=== PATIENT | female | born 1930 | race Caucasian/White ===

== ENCOUNTER 2017-02-20 19:32 | Inpatient (IN) | payer MEDICARE, OTHER ==
[2017-02-20] MEDS ORDERED: Sodium Chloride 0.9% 1,000 ML IV STA (20:19)
[2017-02-20 20:44] LABS: BASO % 0.2 % (0.0-2.0); EOS # 0.1 K/uL (0.0-0.7); EOS % 0.5 % (0.0-4.0); HEMATOCRIT 36.9 % (34.0-47.0); LYMPH # 0.8 K/uL (1.0-4.3); MEAN CORPUSCULAR HEMOGLOBIN 28.6 pg (27.0-31.0); MEAN CORPUSCULAR HGB CONC 32.5 g/dL (33.0-37.0); MEAN PLATELET VOLUME 7.8 fL (7.2-11.7); MONO # 0.3 K/uL (0.0-0.8); MONO % 2.2 % (0.0-10.0); NRBC % 0.1 % (0.0-2.0); PLATELET COUNT 289 K/uL (130-400); RED CELL DISTRIBUTION WIDTH 16.4 % (11.5-14.5); WHITE BLOOD COUNT 11.5 K/uL (4.8-10.8)
[2017-02-20 20:49] LABS: MEAN CELL VOLUME 88.1 fL (81.0-99.0)
[2017-02-20 20:51] LABS: INR 1.1
[2017-02-20 20:53] LABS: ALKALINE PHOSPHATASE 108 U/L (38-126); ALT/SGPT 38 U/L (9-52); AST/SGOT 36 U/L (14-36); BILIRUBIN,TOTAL 0.6 mg/dL (0.2-1.3); BLOOD UREA NITROGEN 19 mg/dL (7-17); CARBON DIOXIDE 24 mmol/L (22-30); CHLORIDE 106 mmol/L (98-107); GFR AFRICAN-AMERICAN > 60; GLUCOSE,RANDOM 132 mg/dL (65-105); MAGNESIUM 1.5 mg/dL (1.6-2.3); PHOSPHOROUS 2.4 mg/dL (2.5-4.5); POTASSIUM 4.7 mmol/L (3.6-5.2); SODIUM 141 mmol/L (132-148); TOTAL PROTEIN 8.3 g/dL (6.3-8.3)
[2017-02-20 21:00] LABS: VENOUS BLOOD GAS BASE EXCESS -1.4 mmol/L (0.0-2.0); VENOUS BLOOD GAS PCO2 36 mmHg (40-60); VENOUS BLOOD PH 7.41 (7.32-7.43)
[2017-02-20 21:16] LABS: RBC URINE 10 /hpf (0-3); URINE BACTERIA RARE (<OCC); URINE BILIRUBIN NEGATIVE (NEGATIVE); URINE BLOOD 1+ (NEGATIVE); URINE COLOR Yellow (YELLOW); URINE GLUCOSE (UA) NORMAL (Normal); URINE KETONE NEGATIVE (NEGATIVE); URINE LEUKOCYTE ESTERASE NEG Leu/uL (Negative); URINE PROTEIN NEGATIVE (NEGATIVE); URINE UROBILINOGEN NORMAL mg/dL (0.2-1.0); WBC URINE 6 /hpf (0-5)
[2017-02-20] MEDS ORDERED: Piperacill/Tazo 4.5gm in Dex 4.5 GM/100 ML BAG IVPB STA (21:21)
[2017-02-20] MEDS ORDERED: Moxifloxacin IV 400mg/250ml NS 250 ML IVPB STA (21:21)
[2017-02-20 21:24] LABS: EOSINOPHIL 1 % (0-4); NEUTROPHIL 72 % (50-75); TOTAL CELLS COUNTED 100
[2017-02-20 21:25] LABS: LARGE PLATELETS PRESENT
[2017-02-20] MEDS ORDERED: Gentamicin 270 MG in Sodium Chloride 0.9% 100 ML IVPB STA ×2 (21:43→22:17)
[2017-02-20] MEDS ORDERED: Vancomycin 1 GM 1 GM/250 ML BAG IVPB STA (22:15)
[2017-02-20] MEDS ORDERED: Azithromycin 500mg/250ML NS 500 MG/250 ML BAG IVPB STA (22:15)
--- NOTE | 2017-02-20 22:57 | C.PDOC ---
Time Seen by Provider: 02/20/17 19:48 Chief Complaint (Nursing): Fever History Per: Patient, Family (Son) History/Exam Limitations: clinical condition Onset/Duration Of Symptoms: Days (1) Current Symptoms Are (Timing): Still Present Associated Symptoms: Fever, Chills, Sputum Severity: Severe Additional History Per: Prior Records Past Medical History Reviewed: Historical Data, Nursing Documentation, Vital Signs Vital Signs: Last Vital Signs Temp 101.5 F H 02/20/17 21:33 Pulse 92 H 02/20/17 21:33 Resp 27 H 02/20/17 21:33 BP 99/48 L 02/20/17 21:33 Pulse Ox 93 L 02/20/17 22:59 - Medical History PMH: Alzheimer's Disease, Anxiety, Arthritis, Depression, HTN, Hypercholesterolemia, Hypothyroidism (on synthroid) Family History: States: Unknown Family Hx - Social History Hx Tobacco Use: No Hx Alcohol Use: No Hx Substance Use: No - Immunization History Hx Tetanus Toxoid Vaccination: No Hx Influenza Vaccination: No (unknown as per son.) Hx Pneumococcal Vaccination: No Review Of Systems Review Of Systems: ROS cannot be obtained secondary to pt's inabilty to answer questions. Physical Exam - Physical Exam Appears: Chronically Ill, Other (Lethargic) Skin: Normal Color, Warm, Dry Head: Atraumatic, Normacephalic Eye(s): bilateral: PERRL Oral Mucosa: Dry Neck: Normal ROM, Supple Cardiovascular: Rhythm Regular Respiratory: No Accessory Muscle Use, Rhonchi Gastrointestinal/Abdominal: Soft, No Tenderness Extremity: Other (Pressure ulcer on right hip) Neurological/Psych: Inappropriate Response To Command, Other (Moving all extremities) Gait: Unable To Assess ED Course And Treatment - Laboratory Results Result Diagrams: 02/20/17 20:38 02/20/17 20:38 Lab Interpretation: Abnormal Interpretation Of Abnormal: Bandemia ECG: Interpreted By Me, Viewed By Me ECG Rhythm: Sinus Tachycardia, Nonspecific Changes Rate From EC O2 Sat by Pulse Oximetry: 93 Pulse Ox Interpretation: Abnormal Interpretation Of Abnormal: Hypoxia on RA - Radiology CXR: Interpreted by Me, Viewed By Me CXR Interpretation: Yes: Infiltrates (right) - Physician Consult Information Physician Contacted: Ruben Howe Outcome Of Conversation: He evaluated pt in the ED and states pt can safely be admitted to Tele floor. Progress - Interventions Interventions:: Observation, Intravenous fluid - Medications Administered Intravenous: Other (Abx) - Data Reviewed Data Reviewed: Lab, Diagnostic imaging, EKG, Old records - Patient Status Patient status: Partially improved - Critical Care Citical Care: Excluding Proc Time Critical Care Time: 60 minutes - Continuity of Care Discussed patient case with:: Patient, Family-HIPPA compliant, ED Nurse, Covering for PMD Discussed pt. case with corporate health consultant/specialty: Pulmonary/Crit. Care - Patient Plan Patient Plan: Admission, Telemetry Disposition Discussed With : Freddie Aaron Comment: He accepted pt on hospitalist service. Doctor Will See Patient In The: Hospital Counseled Patient/Family Regarding: Studies Performed, Diagnosis - Disposition Disposition: HOSPITALIZED Disposition Time: 00:48 Condition: GUARDED - Clinical Impression Clinical Impression: Pneumonia, Sepsis
[2017-02-20] MEDS ORDERED: Sodium Chloride 0.9% 1,000 ML IV ONE (23:23)
[2017-02-21 00:19] LABS: VENOUS BLOOD GAS BASE EXCESS -6.1 mmol/L (0.0-2.0); VENOUS BLOOD GAS PCO2 47 mmHg (40-60); VENOUS BLOOD PH 7.26 (7.32-7.43)
[2017-02-21] MEDS ORDERED: Piperacill/Tazo 3.375gm in Dex 3.375 GM/50 ML BAG IVPB SCH ×2 (02:15→06:00)
--- NOTE | 2017-02-21 02:24 | CP.PCM.CON ---
History of Present Illness - History of Present Illness History of Present Illness: 86 F with h/o severe dementia, h/o anxiety, agitation was found to be shivering and febrile at home. In ER temp 103, patient initially lethargic was hydrated and started abx. Patient's mental status improved and gradually came to baseline as per the son a the bedside. As per the son pt is very forgetful may remember names 20% of the time, has been fall risk and has to be medicated with ativan and seroquel 3 time/day. Patient only speak Vincentian and son also has hard time communicating with her. Son also mentions he was also sick with cold symptoms and got better 2 days ago. CXR right upper lobe patchy infiltrate PMH/ PSH right knee surg, htn, anxiety, dementia with behaviour symptoms Allergies NKDA Social history lives with family, not h/o smoking/alcohol Family history not contributory Meds seroquel, clonazepam, zolpidem in the night, tylenol prn, lisinopril, some time prn oxycodone Review of Systems - Review of Systems All systems: reviewed and no additional remarkable complaints except (HPI) Past Patient History - Infectious Disease Hx of Infectious Diseases: None - Past Social History Smoking Status: Never Smoked Alcohol: None Home Situation {Lives}: With Family Domestic Violence: Negative - CARDIAC Hx Hypercholesterolemia: Yes Hx Hypertension: Yes - PULMONARY Other/Comment: Hx of upper respiratory infection. - NEUROLOGICAL Hx Alzheimer's Disease: Yes - RENAL Hx Chronic Kidney Disease: No - ENDOCRINE/METABOLIC Hx Hypothyroidism: Yes (on synthroid) - MUSCULOSKELETAL/RHEUMATOLOGICAL Hx Arthritis: Yes - PSYCHIATRIC Hx Anxiety: Yes Hx Depression: Yes Hx Substance Use: No - SURGICAL HISTORY Hx Surgeries: Yes Other/Comment: "knee surgery" to unknown side as per son. 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 Results - Vital Signs Recent Vital Signs: Last Vital Signs Temp 99.9 F H 02/21/17 01:53 Pulse 74 02/21/17 01:50 Resp 22 02/21/17 01:50 BP 95/41 L 02/21/17 01:50 Pulse Ox 98 02/21/17 01:50 - Labs Result Diagrams: 02/20/17 20:38 02/20/17 20:38 Labs: Laboratory Results - last 24 hr 02/20/17 02/20/17 02/20/17 00:15 20:30 20:38 WBC 11.5 H D RBC 4.19 Hgb 12.0 Hct 36.9 MCV 88.1 D MCH 28.6 MCHC 32.5 L RDW 16.4 H Plt Count 289 MPV 7.8 Neut % (Auto) 90.1 H Lymph % (Auto) 7.0 L Mcdowell % (Auto) 2.2 Eos % (Auto) 0.5 Baso % (Auto) 0.2 Neut # 10.3 H Lymph # 0.8 L Mcdowell # 0.3 Eos # 0.1 Baso # 0.0 Neutrophils % (Manual) 72 Band Neutrophils % 14 H* Lymphocytes % (Manual) 7 L Monocytes % (Manual) 6 Eosinophils % (Manual) 1 Platelet Estimate Normal Large Platelets Present Hypochromasia (manual) Slight Microcytosis (manual) Slight Ovalocytes Slight PT INR APTT pO2 26 L 39 VBG pH 7.26 L 7.41 VBG pCO2 47 36 L VBG HCO3 18.5 23.2 VBG Total CO2 22.5 23.9 VBG O2 Sat (Calc) 51.6 79.9 H VBG Base Excess -6.1 L -1.4 L VBG Potassium 4.9 5.0 Sodium 143.0 141.0 Chloride 115.0 H 104.0 Glucose 122 H 128 H Lactate 2.4 H 3.1 H Potassium Carbon Dioxide Anion Gap BUN Creatinine Est GFR ( Amer) Est GFR (Non-Af Amer) Random Glucose Calcium Phosphorus Magnesium Total Bilirubin AST ALT Alkaline Phosphatase Total Protein Albumin Globulin Albumin/Globulin Ratio Procalcitonin Venous Blood Potassium 4.9 5.0 Urine Color Urine Clarity Urine pH Ur Specific [place] Urine Protein Urine Glucose (UA) Urine Ketones Urine Blood Urine Nitrate Urine Bilirubin Urine Urobilinogen Ur Leukocyte Esterase Urine WBC (Auto) Urine RBC (Auto) Ur Squamous Epith Cells Urine Bacteria 02/20/17 02/20/17 02/20/17 20:38 20:38 20:46 WBC RBC Hgb Hct MCV MCH MCHC RDW Plt Count MPV Neut % (Auto) Lymph % (Auto) Mcdowell % (Auto) Eos % (Auto) Baso % (Auto) Neut # Lymph # Mcdowell # Eos # Baso # Neutrophils % (Manual) Band Neutrophils % Lymphocytes % (Manual) Monocytes % (Manual) Eosinophils % (Manual) Platelet Estimate Large Platelets Hypochromasia (manual) Microcytosis (manual) Ovalocytes PT 12.7 H INR 1.1 APTT 32 pO2 VBG pH VBG pCO2 VBG HCO3 VBG Total CO2 VBG O2 Sat (Calc) VBG Base Excess VBG Potassium Sodium 141 Chloride 106 Glucose Lactate Potassium 4.7 Carbon Dioxide 24 Anion Gap 15 BUN 19 H Creatinine 1.0 Est GFR ( Amer) > 60 Est GFR (Non-Af Amer) 52 Random Glucose 132 H Calcium 9.0 Phosphorus 2.4 L Magnesium 1.5 L Total Bilirubin 0.6 AST 36 ALT 38 Alkaline Phosphatase 108 Total Protein 8.3 Albumin 4.1 Globulin 4.2 H Albumin/Globulin Ratio 1.0 Procalcitonin 3.19 H Venous Blood Potassium Urine Color Urine Clarity Urine pH Ur Specific [place] Urine Protein Urine Glucose (UA) Urine Ketones Urine Blood Urine Nitrate Urine Bilirubin Urine Urobilinogen Ur Leukocyte Esterase Urine WBC (Auto) Urine RBC (Auto) Ur Squamous Epith Cells Urine Bacteria 02/20/17 21:03 WBC RBC Hgb Hct MCV MCH MCHC RDW Plt Count MPV Neut % (Auto) Lymph % (Auto) Mcdowell % (Auto) Eos % (Auto) Baso % (Auto) Neut # Lymph # Mcdowell # Eos # Baso # Neutrophils % (Manual) Band Neutrophils % Lymphocytes % (Manual) Monocytes % (Manual) Eosinophils % (Manual) Platelet Estimate Large Platelets Hypochromasia (manual) Microcytosis (manual) Ovalocytes PT INR APTT pO2 VBG pH VBG pCO2 VBG HCO3 VBG Total CO2 VBG O2 Sat (Calc) VBG Base Excess VBG Potassium Sodium Chloride Glucose Lactate Potassium Carbon Dioxide Anion Gap BUN Creatinine Est GFR ( Amer) Est GFR (Non-Af Amer) Random Glucose Calcium Phosphorus Magnesium Total Bilirubin AST ALT Alkaline Phosphatase Total Protein Albumin Globulin Albumin/Globulin Ratio Procalcitonin Venous Blood Potassium Urine Color Yellow Urine Clarity Clear Urine pH 6.0 Ur Specific [place] 1.012 Urine Protein Negative Urine Glucose (UA) Normal Urine Ketones Negative Urine Blood 1+ H Urine Nitrate Negative Urine Bilirubin Negative Urine Urobilinogen Normal Ur Leukocyte Esterase Neg Urine WBC (Auto) 6 H Urine RBC (Auto) 10 H Ur Squamous Epith Cells 1 Urine Bacteria Rare Assessment & Plan - Assessment and Plan (Free Text) Assessment: * Sepsis likely source is RUL pna, pt's spo2 is 100% on 2lit nc * Lower side bp but patient is back to base line, trying to climb out of bed * Severe dementia with behaviour symptoms on seroquel, clonazepam. Plan: * Broad spectrum abx Vanco, Rocephin, doxy/zithromax * Since patient has improved in MS continue to monitor in tele * Will need 1:1 * GI/DVT prophylaxis * D/w ER physician.
--- NOTE | 2017-02-21 02:37 | CP.PCM.HP ---
<MarinCorrie - Last Filed: 02/21/17 02:44> History of Present Illness - History of Present Illness History of Present Illness: CC: fever, chills, unresponsive per son HPI: 86F with PMH of dementia, anxiety, HLD and HTN who presented to the ED via EMS for fever, chills, and unresponsiveness. Patient lives with her son who says around 2:00 pm the patient was found to be shaking and feeling "unwell". He says later in the afternoon when he came home she was obtunded, tachypnic, and had saliva coming out of her mouth. He says when he touched her she felt hot to the touch and she was not opening her eyes. During exam the patient is more awake now than what he describes her as earlier, but still somewhat confused. She keeps asking to go to the bathroom even after repeatedly being told she has a Yanez in place. Patient's son says she is usually confused at baseline and over the past year has been having a more difficult time finding their bathroom at home. He notes that he was recently ill with a URI that he was given antibiotics for and is concerned he may have passed this to her since she has now had a cough productive of yellow phlegm for 2 days. He called the patient's PCP who prescribed her levoquin, however by the time he picked it up from the pharmacy he had to call the ambulance. Patient is complaining of right thumb pain but otherwise denies headache, sore throat, dizziness, chest pain abdominal pain, nausea, and vomiting. A full ROS was difficult to obtain 2/2 patient confusion. 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 - NEUROLOGICAL Hx Alzheimer's Disease: Yes - RENAL Hx Chronic Kidney Disease: No - ENDOCRINE/METABOLIC Hx Hypothyroidism: Yes (on synthroid) - MUSCULOSKELETAL/RHEUMATOLOGICAL Hx Arthritis: Yes - PSYCHIATRIC Hx Anxiety: Yes Hx Depression: Yes Hx Substance Use: No - SURGICAL HISTORY Hx Surgeries: Yes Other/Comment: "knee surgery" to unknown side as per son. - ANESTHESIA Hx Anesthesia: Yes Hx Anesthesia Reactions: No Hx Malignant Hyperthermia: No Meds Allergies/Adverse Reactions: Allergies Allergy/AdvReac Type Severity Reaction Status Date / Time No Known Allergies Allergy Verified 02/20/17 19:47 Physical Exam - Constitutional Appears: Agitated, Confused - Head Exam Head Exam: ATRAUMATIC, NORMAL INSPECTION, NORMOCEPHALIC - Eye Exam Eye Exam: EOMI, PERRL - ENT Exam ENT Exam: Mucous Membranes Dry - Neck Exam Neck exam: Positive for: Normal Inspection - Respiratory Exam Respiratory Exam: Rales (b/l), Respiratory Distress. absent: Accessory Muscle Use, Rhonchi, Wheezes, Stridor - Cardiovascular Exam Cardiovascular Exam: RRR, +S1, +S2 - GI/Abdominal Exam GI & Abdominal Exam: Normal Bowel Sounds, Soft. absent: Tenderness - Extremities Exam Extremities exam: Positive for: normal capillary refill, pedal edema (nonpitting ), pedal pulses present. Negative for: calf tenderness - Neurological Exam Neurological exam: Alert Additional comments: oriented to person and place but not oriented to time - Psychiatric Exam Psychiatric exam: Agitated, Normal Affect - Skin Skin Exam: Dry, Normal Color, Warm Additional comments: 3cm x 3cm abrasion on right hip (patients son says it is from scooting down the stairs at home) Results - Vital Signs Recent Vital Signs: Last Vital Signs Temp 99.9 F H 02/21/17 01:53 Pulse 74 02/21/17 01:50 Resp 22 02/21/17 01:50 BP 95/41 L 02/21/17 01:50 Pulse Ox 98 02/21/17 01:50 - Labs Result Diagrams: 02/20/17 20:38 02/20/17 20:38 Labs: Laboratory Results - last 24 hr 02/20/17 02/20/17 02/20/17 00:15 20:30 20:38 WBC 11.5 H D RBC 4.19 Hgb 12.0 Hct 36.9 MCV 88.1 D MCH 28.6 MCHC 32.5 L RDW 16.4 H Plt Count 289 MPV 7.8 Neut % (Auto) 90.1 H Lymph % (Auto) 7.0 L Early % (Auto) 2.2 Eos % (Auto) 0.5 Baso % (Auto) 0.2 Neut # 10.3 H Lymph # 0.8 L Early # 0.3 Eos # 0.1 Baso # 0.0 Neutrophils % (Manual) 72 Band Neutrophils % 14 H* Lymphocytes % (Manual) 7 L Monocytes % (Manual) 6 Eosinophils % (Manual) 1 Platelet Estimate Normal Large Platelets Present Hypochromasia (manual) Slight Microcytosis (manual) Slight Ovalocytes Slight PT INR APTT pO2 26 L 39 VBG pH 7.26 L 7.41 VBG pCO2 47 36 L VBG HCO3 18.5 23.2 VBG Total CO2 22.5 23.9 VBG O2 Sat (Calc) 51.6 79.9 H VBG Base Excess -6.1 L -1.4 L VBG Potassium 4.9 5.0 Sodium 143.0 141.0 Chloride 115.0 H 104.0 Glucose 122 H 128 H Lactate 2.4 H 3.1 H Potassium Carbon Dioxide Anion Gap BUN Creatinine Est GFR ( Amer) Est GFR (Non-Af Amer) Random Glucose Calcium Phosphorus Magnesium Total Bilirubin AST ALT Alkaline Phosphatase Total Protein Albumin Globulin Albumin/Globulin Ratio Procalcitonin Venous Blood Potassium 4.9 5.0 Urine Color Urine Clarity Urine pH Ur Specific [place] Urine Protein Urine Glucose (UA) Urine Ketones Urine Blood Urine Nitrate Urine Bilirubin Urine Urobilinogen Ur Leukocyte Esterase Urine WBC (Auto) Urine RBC (Auto) Ur Squamous Epith Cells Urine Bacteria 02/20/17 02/20/17 02/20/17 20:38 20:38 20:46 WBC RBC Hgb Hct MCV MCH MCHC RDW Plt Count MPV Neut % (Auto) Lymph % (Auto) Early % (Auto) Eos % (Auto) Baso % (Auto) Neut # Lymph # Early # Eos # Baso # Neutrophils % (Manual) Band Neutrophils % Lymphocytes % (Manual) Monocytes % (Manual) Eosinophils % (Manual) Platelet Estimate Large Platelets Hypochromasia (manual) Microcytosis (manual) Ovalocytes PT 12.7 H INR 1.1 APTT 32 pO2 VBG pH VBG pCO2 VBG HCO3 VBG Total CO2 VBG O2 Sat (Calc) VBG Base Excess VBG Potassium Sodium 141 Chloride 106 Glucose Lactate Potassium 4.7 Carbon Dioxide 24 Anion Gap 15 BUN 19 H Creatinine 1.0 Est GFR ( Amer) > 60 Est GFR (Non-Af Amer) 52 Random Glucose 132 H Calcium 9.0 Phosphorus 2.4 L Magnesium 1.5 L Total Bilirubin 0.6 AST 36 ALT 38 Alkaline Phosphatase 108 Total Protein 8.3 Albumin 4.1 Globulin 4.2 H Albumin/Globulin Ratio 1.0 Procalcitonin 3.19 H Venous Blood Potassium Urine Color Urine Clarity Urine pH Ur Specific [place] Urine Protein Urine Glucose (UA) Urine Ketones Urine Blood Urine Nitrate Urine Bilirubin Urine Urobilinogen Ur Leukocyte Esterase Urine WBC (Auto) Urine RBC (Auto) Ur Squamous Epith Cells Urine Bacteria 02/20/17 21:03 WBC RBC Hgb Hct MCV MCH MCHC RDW Plt Count MPV Neut % (Auto) Lymph % (Auto) Early % (Auto) Eos % (Auto) Baso % (Auto) Neut # Lymph # Early # Eos # Baso # Neutrophils % (Manual) Band Neutrophils % Lymphocytes % (Manual) Monocytes % (Manual) Eosinophils % (Manual) Platelet Estimate Large Platelets Hypochromasia (manual) Microcytosis (manual) Ovalocytes PT INR APTT pO2 VBG pH VBG pCO2 VBG HCO3 VBG Total CO2 VBG O2 Sat (Calc) VBG Base Excess VBG Potassium Sodium Chloride Glucose Lactate Potassium Carbon Dioxide Anion Gap BUN Creatinine Est GFR ( Amer) Est GFR (Non-Af Amer) Random Glucose Calcium Phosphorus Magnesium Total Bilirubin AST ALT Alkaline Phosphatase Total Protein Albumin Globulin Albumin/Globulin Ratio Procalcitonin Venous Blood Potassium Urine Color Yellow Urine Clarity Clear Urine pH 6.0 Ur Specific [place] 1.012 Urine Protein Negative Urine Glucose (UA) Normal Urine Ketones Negative Urine Blood 1+ H Urine Nitrate Negative Urine Bilirubin Negative Urine Urobilinogen Normal Ur Leukocyte Esterase Neg Urine WBC (Auto) 6 H Urine RBC (Auto) 10 H Ur Squamous Epith Cells 1 Urine Bacteria Rare Assessment & Plan (1) Sepsis Assessment and Plan: * Likely secondary to pneumonia * Lactate: 2.4, 3.1 * procal: 3.19 * UA: 1+ blood, * Vanc QD and Zosyn Q8 * NS @100/h * monitor vitals * f/u CXR * f/u sputum culture * f/u urine culture * f/u blood culture * f/u Flu A/B Status: Acute (2) Dementia Assessment and Plan: * Confirm home meds with [facility] * Fall risk protocol * high elopement risk * swallow eval * consider 1-to-1 Status: Chronic (3) HLD (hyperlipidemia) Assessment and Plan: * Crestor 2.5mg HS * f/u lipid panel Status: Chronic (4) HTN (hypertension) Assessment and Plan: * hold Losartan 50 mg QD (home med) due to low BP on admission * Monitor Status: Chronic (5) Prophylactic measure Assessment and Plan: * Heparin * Protonix * SCDs Status: Acute <Freddie Aaron - Last Filed: 02/21/17 06:36> Results - Vital Signs Recent Vital Signs: Last Vital Signs Temp 99 F 02/21/17 03:45 Pulse 90 02/21/17 03:45 Resp 22 02/21/17 03:45 BP 126/63 02/21/17 03:45 Pulse Ox 98 02/21/17 03:45 - Labs Result Diagrams: 02/20/17 20:38 02/20/17 20:38 Labs: Laboratory Results - last 24 hr 02/20/17 02/20/17 02/20/17 00:15 20:30 20:38 WBC 11.5 H D RBC 4.19 Hgb 12.0 Hct 36.9 MCV 88.1 D MCH 28.6 MCHC 32.5 L RDW 16.4 H Plt Count 289 MPV 7.8 Neut % (Auto) 90.1 H Lymph % (Auto) 7.0 L Early % (Auto) 2.2 Eos % (Auto) 0.5 Baso % (Auto) 0.2 Neut # 10.3 H Lymph # 0.8 L Early # 0.3 Eos # 0.1 Baso # 0.0 Neutrophils % (Manual) 72 Band Neutrophils % 14 H* Lymphocytes % (Manual) 7 L Monocytes % (Manual) 6 Eosinophils % (Manual) 1 Platelet Estimate Normal Large Platelets Present Hypochromasia (manual) Slight Microcytosis (manual) Slight Ovalocytes Slight PT INR APTT pO2 26 L 39 VBG pH 7.26 L 7.41 VBG pCO2 47 36 L VBG HCO3 18.5 23.2 VBG Total CO2 22.5 23.9 VBG O2 Sat (Calc) 51.6 79.9 H VBG Base Excess -6.1 L -1.4 L VBG Potassium 4.9 5.0 Sodium 143.0 141.0 Chloride 115.0 H 104.0 Glucose 122 H 128 H Lactate 2.4 H 3.1 H Potassium Carbon Dioxide Anion Gap BUN Creatinine Est GFR ( Amer) Est GFR (Non-Af Amer) Random Glucose Calcium Phosphorus Magnesium Total Bilirubin AST ALT Alkaline Phosphatase Total Protein Albumin Globulin Albumin/Globulin Ratio Procalcitonin Venous Blood Potassium 4.9 5.0 Urine Color Urine Clarity Urine pH Ur Specific [place] Urine Protein Urine Glucose (UA) Urine Ketones Urine Blood Urine Nitrate Urine Bilirubin Urine Urobilinogen Ur Leukocyte Esterase Urine WBC (Auto) Urine RBC (Auto) Ur Squamous Epith Cells Urine Bacteria Influenza Typ A,B (EIA) 02/20/17 02/20/17 02/20/17 20:38 20:38 20:46 WBC RBC Hgb Hct MCV MCH MCHC RDW Plt Count MPV Neut % (Auto) Lymph % (Auto) Early % (Auto) Eos % (Auto) Baso % (Auto) Neut # Lymph # Early # Eos # Baso # Neutrophils % (Manual) Band Neutrophils % Lymphocytes % (Manual) Monocytes % (Manual) Eosinophils % (Manual) Platelet Estimate Large Platelets Hypochromasia (manual) Microcytosis (manual) Ovalocytes PT 12.7 H INR 1.1 APTT 32 pO2 VBG pH VBG pCO2 VBG HCO3 VBG Total CO2 VBG O2 Sat (Calc) VBG Base Excess VBG Potassium Sodium 141 Chloride 106 Glucose Lactate Potassium 4.7 Carbon Dioxide 24 Anion Gap 15 BUN 19 H Creatinine 1.0 Est GFR ( Amer) > 60 Est GFR (Non-Af Amer) 52 Random Glucose 132 H Calcium 9.0 Phosphorus 2.4 L Magnesium 1.5 L Total Bilirubin 0.6 AST 36 ALT 38 Alkaline Phosphatase 108 Total Protein 8.3 Albumin 4.1 Globulin 4.2 H Albumin/Globulin Ratio 1.0 Procalcitonin 3.19 H Venous Blood Potassium Urine Color Urine Clarity Urine pH Ur Specific [place] Urine Protein Urine Glucose (UA) Urine Ketones Urine Blood Urine Nitrate Urine Bilirubin Urine Urobilinogen Ur Leukocyte Esterase Urine WBC (Auto) Urine RBC (Auto) Ur Squamous Epith Cells Urine Bacteria Influenza Typ A,B (EIA) 02/20/17 02/21/17 21:03 05:41 WBC RBC Hgb Hct MCV MCH MCHC RDW Plt Count MPV Neut % (Auto) Lymph % (Auto) Early % (Auto) Eos % (Auto) Baso % (Auto) Neut # Lymph # Early # Eos # Baso # Neutrophils % (Manual) Band Neutrophils % Lymphocytes % (Manual) Monocytes % (Manual) Eosinophils % (Manual) Platelet Estimate Large Platelets Hypochromasia (manual) Microcytosis (manual) Ovalocytes PT INR APTT pO2 VBG pH VBG pCO2 VBG HCO3 VBG Total CO2 VBG O2 Sat (Calc) VBG Base Excess VBG Potassium Sodium Chloride Glucose Lactate Potassium Carbon Dioxide Anion Gap BUN Creatinine Est GFR ( Amer) Est GFR (Non-Af Amer) Random Glucose Calcium Phosphorus Magnesium Total Bilirubin AST ALT Alkaline Phosphatase Total Protein Albumin Globulin Albumin/Globulin Ratio Procalcitonin Venous Blood Potassium Urine Color Yellow Urine Clarity Clear Urine pH 6.0 Ur Specific [place] 1.012 Urine Protein Negative Urine Glucose (UA) Normal Urine Ketones Negative Urine Blood 1+ H Urine Nitrate Negative Urine Bilirubin Negative Urine Urobilinogen Normal Ur Leukocyte Esterase Neg Urine WBC (Auto) 6 H Urine RBC (Auto) 10 H Ur Squamous Epith Cells 1 Urine Bacteria Rare Influenza Typ A,B (EIA) Negative for flu a/b Assessment & Plan - Date & Time Date: 02/21/17 (I have seen and examined the patient. I agree with the findings and plan of care as documented by Dr. Funes. Patient with pneumonia and positive for SIRS criteria. Code sepsis called in ED. ICU consult ordered by ED. Vanco, Zosyn, and Gentamicin given in ED. Continue Vanco and Zosyn for now. Check sputum and blood cultures. Monitor vitals closely. Continue IVF. BP improved. Continue home meds for history of dementia. Fall precautions. Monitor for acute changes. ) Time: 06:33 Attending/Attestation - Attestation I have personally seen and examined this patient.: Yes I have fully participated in the care of the patient.: Yes I have reviewed all pertinent clinical information: Yes
[2017-02-21] MEDS: Sodium Chloride 0.9% 1,000 ML IV SCH ×3 (03:25→18:52)
[2017-02-21] MEDS ORDERED: Albuterol-Ipratrop 3 mg / 0.5 (3 ml) UD INH PRN ×2 (03:45→22:45)
--- NOTE | 2017-02-21 04:35 | PCM.SEPTIC ---
Sepsis Progress Note - Reassessment Type Date of Evaluation: 02/21/17 Time of Evaluation: 04:33 Reassessment Type: Non-invasive reassessment - Non Invasive Reassessment Were the most recent vital sign reviewed: Yes Vital Sign (Latest): Temp Pulse Resp BP Pulse Ox 98.5 F 67 20 112/65 97 02/21/17 02:15 02/21/17 02:15 02/21/17 02:15 02/21/17 02:15 02/21/17 02:15 Cardiovascular: Yes: Regular Rate, Rhythm, Chest Non Tender. No: Murmur, Bradycardia, Tachycardia Respiratory: Yes: Normal Breath Sounds. No: Accessory Muscle Use, Crackles, Rales, Rhonchi, Stridor, Wheezing Capillary Refill: Normal (Less than 2 sec) Pulses: Normal Radial Skin: Normal Color, Warm, Dry
[2017-02-21 07:16] LABS: BASO # 0.1 K/uL (0.0-0.2); BASO % 0.3 % (0.0-2.0); HEMATOCRIT 31.2 % (34.0-47.0); LYMPH # 1.1 K/uL (1.0-4.3); LYMPH % 6.9 % (20.0-40.0); MEAN CELL VOLUME 90.4 fL (81.0-99.0); MEAN CORPUSCULAR HEMOGLOBIN 28.9 pg (27.0-31.0); MEAN PLATELET VOLUME 7.8 fL (7.2-11.7); MONO # 0.6 K/uL (0.0-0.8); MONO % 3.5 % (0.0-10.0); NRBC % 0.1 % (0.0-2.0); PLATELET COUNT 248 K/uL (130-400); RED CELL DISTRIBUTION WIDTH 16.7 % (11.5-14.5); WHITE BLOOD COUNT 16.6 K/uL (4.8-10.8)
[2017-02-21 07:55] LABS: VENOUS BLOOD GAS BASE EXCESS -4.3 mmol/L (0.0-2.0); VENOUS BLOOD GAS PCO2 42 mmHg (40-60); VENOUS BLOOD PH 7.32 (7.32-7.43)
[2017-02-21 07:57] LABS: ALB/GLOB RATIO 1.4 (1.0-2.1); ALKALINE PHOSPHATASE 89 U/L (38-126); ALT/SGPT 40 U/L (9-52); AST/SGOT 64 U/L (14-36); BILIRUBIN,TOTAL 0.5 mg/dL (0.2-1.3); BLOOD UREA NITROGEN 17 mg/dL (7-17); CALCIUM 7.6 mg/dl (8.6-10.4); CARBON DIOXIDE 18 mmol/L (22-30); CHLORIDE 112 mmol/L (98-107); CHOLESTEROL 129 mg/dL (0-199); GFR AFRICAN-AMERICAN > 60; GLUCOSE,RANDOM 142 mg/dL (65-105); POTASSIUM 4.2 mmol/L (3.6-5.2); SODIUM 144 mmol/L (132-148); TOTAL PROTEIN 5.7 g/dL (6.3-8.3)
--- NOTE | 2017-02-21 08:55 | RAD ---
HISTORY: Sepsis Patient COMPARISON: 11/14/2015 FINDINGS: LUNGS: There are persistent low lung volumes. There is multifocal scarring in the right upper lobe. There is also mild pulmonary venous congestion. No focal consolidation PLEURA: No significant pleural effusion identified, no pneumothorax apparent. CARDIOVASCULAR: Normal. OSSEOUS STRUCTURES: No significant abnormalities. VISUALIZED UPPER ABDOMEN: Normal. OTHER FINDINGS: None. IMPRESSION: No acute findings.
[2017-02-21 09:01] LABS: BASOPHIL 1 % (0-2); NEUTROPHIL 71 % (50-75); TOTAL CELLS COUNTED 100
--- NOTE | 2017-02-21 09:14 | CP.PCM.PCO ---
Physician Communication Note - Physician Communication Note Physician Communication Note: Held influenza vaccine since patient is septic. Recommend post-hosp.
[2017-02-21 09:57] LABS: MAGNESIUM 1.5 mg/dL (1.6-2.3); PHOSPHOROUS 3.1 mg/dL (2.5-4.5)
[2017-02-21] MEDS ORDERED: Azithromycin 500 MG in Sodium Chloride 0.9% 250 ML IVPB SCH (10:00)
[2017-02-21 10:29] LABS: TROPONIN I 0.015 ng/mL (0.00-0.120)
[2017-02-21] MEDS: Pantoprazole 40 mg EC Tab PO SCH (10:55)
--- NOTE | 2017-02-21 11:08 | CP.PCM.PN ---
<Theodora Dillard - Last Filed: 02/21/17 19:16> Subjective - Date & Time of Evaluation Date of Evaluation: 02/21/17 Time of Evaluation: 11:08 - Subjective Subjective: Medicine Progress Note for Dr. Núñez Patient was seen and examined at bedside in no acute distress. Patient's granddaughter was a bedside and translated. Patient reports having constipation and abdominal discomfort. Patient denies remaining review of systems. Objective - Vital Signs/Intake and Output Vital Signs (last 24 hours): Temp Pulse Resp BP Pulse Ox 98.2 F 77 18 98/60 L 96 02/21/17 08:41 02/21/17 08:41 02/21/17 08:41 02/21/17 08:41 02/21/17 08:41 - Medications Medications: Current Medications Acetaminophen (Tylenol 325mg Tab) 650 mg PO Q6 PRN PRN Reason: Fever >100.4 F Albuterol/Ipratropium (Duoneb 3 Mg/0.5 Mg (3 Ml) Ud) 3 ml INH RQ2 PRN PRN Reason: Shortness of Breath Last Admin: 02/21/17 04:02 Dose: 3 ml Heparin Sodium (Porcine) (Heparin) 5,000 units SC Q12 [facility] Last Admin: 02/21/17 10:51 Dose: 5,000 units Sodium Chloride (Sodium Chloride 0.9%) 1,000 mls @ 100 mls/hr IV .Q10H [facility] Last Admin: 02/21/17 03:25 Dose: 100 mls/hr Azithromycin 500 mg/ Sodium (Chloride) 250 mls @ 166.667 mls/hr IVPB DAILY [facility] Last Admin: 02/21/17 10:48 Dose: 166.667 mls/hr Ceftriaxone Sodium 1 gm/ (Sodium Chloride) 100 mls @ 100 mls/hr IVPB Q24H [facility] Pantoprazole Sodium (Protonix Ec Tab) 40 mg PO DAILY [facility] Last Admin: 02/21/17 10:55 Dose: 40 mg Rosuvastatin Calcium (Crestor) 2.5 mg PO HS [facility] - Labs Labs: 02/21/17 04:00 02/21/17 07:05 PT 12.7 SECONDS (9.7-12.2) H 02/20/17 20:38 INR 1.1 02/20/17 20:38 APTT 32 SECONDS (21-34) 02/20/17 20:38 - Constitutional Appears: No Acute Distress, Confused (baseline, as per granddaughter) - Head Exam Head Exam: ATRAUMATIC, NORMAL INSPECTION - Eye Exam Eye Exam: EOMI, Normal appearance - ENT Exam ENT Exam: Mucous Membranes Moist - Respiratory Exam Respiratory Exam: Rales (R>L), NORMAL BREATHING PATTERN. absent: Clear to Ausculation Bilateral, Rhonchi, Wheezes, Respiratory Distress - Cardiovascular Exam Cardiovascular Exam: REGULAR RHYTHM, +S1, +S2 - GI/Abdominal Exam GI & Abdominal Exam: Soft, Normal Bowel Sounds. absent: Distended, Firm, Tenderness - Extremities Exam Extremities Exam: Normal Inspection - Neurological Exam Neurological Exam: Alert, Awake. absent: Oriented x3 - Psychiatric Exam Psychiatric exam: Normal Affect, Normal Mood - Skin Skin Exam: Dry, Intact, Normal Color, Warm Assessment and Plan (1) Sepsis with metabolic encephalopathy Status: Acute (2) Dementia Status: Chronic (3) HLD (hyperlipidemia) Status: Chronic (4) HTN (hypertension) Status: Chronic (5) Constipation Status: Acute (6) Prophylactic measure Status: Acute - Assessment and Plan (Free Text) Plan: (1) Sepsis with metabolic encephalopathy Assessment and Plan: * Likely secondary to pneumonia * Lactate: 2.4, 3.1, 3.2 * Procal: 3.19 * Bandemia: 13 * Ammonia: f/u * Discontinued Vanc QD and Zosyn Q8 * Started Rocephin 1gm Q24h and Azithromycin 500mg IV Q24 * ID consulted, Dr. De La Fuente, help appreciated * NS @75/h (decreased from 100mls/h) * CXR: no acute findings * Sputum culture: f/u * Urine culture: f/u * Blood culture: f/u * Flu A/B: negative * Monitor vitals * Echo: LV is normal size, normal wall thickness, LV function normal; LVEF normal; grade 1 abnormal relaxation patter; mild pulmonary htn Status: Acute (2) Dementia Assessment and Plan: * Conf[facility] * Continue home medication: Aricept 5mg PO daily * Fall risk protocol * Swallow eval * Consider 1-to-1 * Head CT: limited study; focal low attenuation seen within right cerebellum suggestive for chronic infarct; chronic microvascular ischemic change; sinus mucosal disease Status: Chronic (3) HLD (hyperlipidemia) Assessment and Plan: * Crestor 2.5mg HS * Lipid panel: TG 115, Cholesterol 129, LDL 57, HDL 31 Status: Chronic (4) HTN (hypertension) Assessment and Plan: * Hold home meds due to low BP on admission: Losartan 50 mg QD, Isosorbide dinitrate 30mg PO BID * Monitor Status: Chronic (5) History of Hypothyroidism Assessment and Plan: * Confirmed medications with pharmacy- patient takes Levothyroxine 25mg QAM * TSH/Free T4: f/u results * After f/u results, consider restarting home medication (6) Hx of Agitation Assessment and Plan: * 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 Hold home medications. Status: Chronic (7) Constipation Assessment and Plan: * One dose of dulcolax given * Colace 100mg PO TID (8) Prophylactic measure Assessment and Plan: * Heparin * Protonix * SCDs * PT/OT * Palliative Care consulted <Raven Núñez V - Last Filed: 02/21/17 23:13> Objective - Vital Signs/Intake and Output Vital Signs (last 24 hours): Temp Pulse Resp BP Pulse Ox 98.2 F 77 18 98/60 L 96 02/21/17 08:41 02/21/17 08:41 02/21/17 08:41 02/21/17 08:41 02/21/17 08:41 Intake and Output: 02/21/17 02/22/17 18:59 06:59 Output Total 900 Balance -900 - Medications Medications: Current Medications Acetaminophen (Tylenol 325mg Tab) 650 mg PO Q6 PRN PRN Reason: Fever >100.4 F Albuterol/Ipratropium (Duoneb 3 Mg/0.5 Mg (3 Ml) Ud) 3 ml INH RQ4 PRN PRN Reason: Shortness of Breath Docusate Sodium (Colace) 100 mg PO TID [facility] Last Admin: 02/21/17 18:38 Dose: 100 mg Donepezil HCl (Aricept) 5 mg PO DAILY [facility] Last Admin: 02/21/17 14:27 Dose: 5 mg Ferrous Sulfate (Feosol) 325 mg PO DAILY [facility] Last Admin: 02/21/17 14:27 Dose: 325 mg Heparin Sodium (Porcine) (Heparin) 5,000 units SC Q12 [facility] Last Admin: 02/21/17 21:56 Dose: 5,000 units Vancomycin HCl 1 gm/ Sodium (Chloride) 250 mls @ 167 mls/hr IVPB Q24H [facility] Last Admin: 02/21/17 16:45 Dose: 167 mls/hr Meropenem 1 gm/ Sodium (Chloride) 100 mls @ 100 mls/hr IVPB Q8H [facility] Last Admin: 02/21/17 18:36 Dose: 100 mls/hr Sodium Chloride (Sodium Chloride 0.9%) 1,000 mls @ 75 mls/hr IV .[id number] [facility] Last Admin: 02/21/17 18:52 Dose: 75 mls/hr Lorazepam (Ativan) 1 mg IVP Q6H PRN PRN Reason: Seizure activity Pantoprazole Sodium (Protonix Ec Tab) 40 mg PO DAILY [facility] Last Admin: 02/21/17 10:55 Dose: 40 mg Rosuvastatin Calcium (Crestor) 2.5 mg PO DAILY [facility] Saccharomyces Boulardii (Florastor) 250 mg PO BID [facility] - Labs Labs: 02/21/17 04:00 02/21/17 07:05 PT 12.7 SECONDS (9.7-12.2) H 02/20/17 20:38 INR 1.1 02/20/17 20:38 APTT 32 SECONDS (21-34) 02/20/17 20:38 Attending/Attestation - Attestation I have personally seen and examined this patient.: Yes I have fully participated in the care of the patient.: Yes I have reviewed all pertinent clinical information, including history, physical exam and plan: Yes Notes (Text): Patient seen, examined and case discussed with day-time resident. 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 Patient preoccupied mainly that she cannot go to the bathroom. She is able to speak the names of her four sons. This morning when patient was seen by the resident, patient did not make sense however unclear if this is due to sepsis or language barrier. Patient seen again prior to shift change at 6:40PM with her son Will who he lives on the 2nd floor with mother. He reports she has been taking Seroquel, Klonopin, and Ambien close to 20+ years who history of agitation and dementia. I explained to the son at beside, will hold these medications with known side effect of sedation, while we are treating patient with infection given sign of infection/sepsis is also change in mental status and we do not want to sedate her while in the hospital. Informed by night time resident, patient's PMD had called to restart home doses of medications with night time hospitalist. Will follow-up patient to see how she is doing clinically in the morning. Assessment/Plan (1) Sepsis Metabolic encephalopathy Assessment and Plan: * Suspected pneumonia * SIRS: febrile, tachycardia, leukocytosis, bandemia, and elevated lactate * Code sepsis called in the ED, Patient received first dose of Vanco/Zosyn and fluid boluses. Was evaluated by ICU on admission, deem stable for telemetry * Procal: 3 * Infectious Disease (Dr. De La Fuente) on the case-->help appreciated * Started Rocephin 1gm Q24h and Azithromycin 500mg IV Q24 * Changed by ID to Meropenem 1 gram IV Q8H and vancomycin 1 gram IV 24H * ID consulted, Dr. De La Fuente, help appreciated * Head CT: no acute changes * NS @75/hr * CXR: no acute findings (clinically dry) will repeat tomorrow * Sputum culture: f/u * Urine culture: f/u * Blood culture: no growth after 24 hours X2 * Flu A/B: negative * Echo: LV is normal size, normal wall thickness, LV function normal; LVEF normal; grade 1 abnormal relaxation patter; mild pulmonary htn * Monitor on telemetry Status: Acute (2) Dementia Assessment and Plan: * Resident Confirmed [facility] meds with [facility] . I confirmed with patient's son at bedside, taking these meds more than 25+ years. * Continue home medication: Aricept 5mg PO daily * Fall risk protocol * Swallow eval * Consider 1-to-1 * Head CT: limited study; focal low attenuation seen within right cerebellum suggestive for chronic infarct; chronic microvascular ischemic change; sinus mucosal disease * Patient takes Seroquel, Klonopin, and Ambien at home for history of agitation. Patient during the day has not been agitated except early on admission requiring one dose of Haldol. * Seizure precautions Status: Chronic (3) HLD (hyperlipidemia) Assessment and Plan: * Crestor 2.5mg HS * Lipid panel: TG 115, Cholesterol 129, LDL 57, HDL 31 Status: Chronic (4) HTN (hypertension) Assessment and Plan: * Hold home meds due to low BP on admission: Losartan 50 mg QD, Isosorbide dinitrate 30mg PO BID * on IV fluids * Monitor Status: Chronic (5) History of Hypothyroidism Assessment and Plan: * Confirmed medications with pharmacy- patient takes Levothyroxine 25mg QAM * TSH/Free T4: f/u results * After f/u results, consider restarting home medication (6) Hx of Agitation Assessment and Plan: * half-way history of taking Seroquel 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 Hold home medications. Had discussed with son prior to shift change we would hold medications given patient is being treated for infection and can cause change in mental status and that side effects of these medications also cause sedation. Status: Chronic (7) Constipation Assessment and Plan: * One dose of dulcolax given * Colace 100mg PO TID * Patient had bowel movement, discussed with evening RNOzzy (8) Prophylactic measure Assessment and Plan: * Heparin 5000 units subq 8H * Protonix 40mg PO daily * SCDs * PT/OT eval * Palliative Care consulted
--- NOTE | 2017-02-21 12:59 | CT ---
PROCEDURE: CT HEAD WITHOUT CONTRAST. HISTORY: Altered mental status COMPARISON: 11/14/2015 TECHNIQUE: Axial computed tomography images were obtained through the head/brain without intravenous contrast. Radiation dose: Total exam DLP = 2517 mGy-cm. This CT exam was performed using one or more of the following dose reduction techniques: Automated exposure control, adjustment of the mA and/or kV according to patient size, and/or use of iterative reconstruction technique. FINDINGS: HEMORRHAGE: No intracranial hemorrhage. BRAIN: No mass effect or edema. Scattered focal lucencies in the subcortical and periventricular white matter suggestive for chronic microvascular ischemic change. Focal low attenuation seen within the right cerebellum suggestive for chronic infarct. VENTRICLES: Unremarkable. No hydrocephalus. CALVARIUM: Unremarkable. PARANASAL SINUSES: Mucosal thickening of the bilateral maxillary sinuses and sphenoid sinus. MASTOID AIR CELLS: Unremarkable as visualized. No inflammatory changes. OTHER FINDINGS: Limited study secondary to prominent patient motion artifact despite several attempts to repeat study. IMPRESSION: Limited study secondary to prominent patient motion artifact despite several attempts to repeat study. Focal low attenuation seen within the right cerebellum suggestive for chronic infarct. Chronic microvascular ischemic change. Sinus mucosal disease. If focal neurologic deficit persists, consider MRI.
--- NOTE | 2017-02-21 14:38 | CP.PCM.CON ---
History of Present Illness - History of Present Illness History of Present Illness: palliative consult requested for goals of care discussion Patient is a 86 yo lady admitted from home found by her son being lethargic, obtund with saliva coming out her mouth. Shortly before it, patient seen with chills. Per patient's daughter in law, prior to this patient was at her base line, ambulatory and verbal. Upon admission patient was diagnosed with sepsis and ZithromaxIV and Rocephin IV initiated, WBC 16.6 today and Hb 10.0 PMH: Alzheimer's, anxiety, arthritis, depression, HTN Soc. Hx: lives at home with son and daughter in law, eparated, has a homeopathic doctor 8 hr a day Fam. Hx: Brother 1 with [place], brother 2 with cancer Review of Systems - Review of Systems All systems: reviewed and no additional remarkable complaints except Review of Systems: ROS obtained from nursing. Per nursing patient has poor appetite and is aggitated, tries to get OOB Past Patient History - Infectious Disease Hx of Infectious Diseases: None - Past Medical History & Family History Past Medical History?: Yes - Past Social History Smoking Status: Never Smoked Alcohol: None Home Situation {Lives}: With Family Domestic Violence: Negative - CARDIAC Hx Hypercholesterolemia: Yes Hx Hypertension: Yes - PULMONARY Other/Comment: Hx of upper respiratory infection. - NEUROLOGICAL Hx Alzheimer's Disease: Yes - RENAL Hx Chronic Kidney Disease: No - ENDOCRINE/METABOLIC Hx Hypothyroidism: Yes (on synthroid) - MUSCULOSKELETAL/RHEUMATOLOGICAL Hx Arthritis: Yes - PSYCHIATRIC Hx Anxiety: Yes Hx Depression: Yes Hx Substance Use: No - SURGICAL HISTORY Hx Surgeries: Yes Other/Comment: "knee surgery" to unknown side as per son. - ANESTHESIA Hx Anesthesia: Yes Hx Anesthesia Reactions: No Hx Malignant Hyperthermia: No Meds Allergies/Adverse Reactions: Allergies Allergy/AdvReac Type Severity Reaction Status Date / Time No Known Allergies Allergy Verified 02/20/17 19:47 - Medications Medications: Current Medications Acetaminophen (Tylenol 325mg Tab) 650 mg PO Q6 PRN PRN Reason: Fever >100.4 F Albuterol/Ipratropium (Duoneb 3 Mg/0.5 Mg (3 Ml) Ud) 3 ml INH RQ2 PRN PRN Reason: Shortness of Breath Last Admin: 02/21/17 04:02 Dose: 3 ml Donepezil HCl (Aricept) 5 mg PO DAILY [facility] Last Admin: 02/21/17 14:27 Dose: 5 mg Ferrous Sulfate (Feosol) 325 mg PO DAILY [facility] Last Admin: 02/21/17 14:27 Dose: 325 mg Heparin Sodium (Porcine) (Heparin) 5,000 units SC Q12 [facility] Last Admin: 02/21/17 10:51 Dose: 5,000 units Sodium Chloride (Sodium Chloride 0.9%) 1,000 mls @ 100 mls/hr IV .Q10H [facility] Last Admin: 02/21/17 03:25 Dose: 100 mls/hr Azithromycin 500 mg/ Sodium (Chloride) 250 mls @ 166.667 mls/hr IVPB DAILY [facility] Last Admin: 02/21/17 10:48 Dose: 166.667 mls/hr Ceftriaxone Sodium 1 gm/ (Sodium Chloride) 100 mls @ 100 mls/hr IVPB Q24H [facility] Last Admin: 02/21/17 12:53 Dose: 100 mls/hr Pantoprazole Sodium (Protonix Ec Tab) 40 mg PO DAILY [facility] Last Admin: 02/21/17 10:55 Dose: 40 mg Pantoprazole Sodium (Protonix Ec Tab) 40 mg PO DAILY [facility] Paroxetine HCl (Paxil Cr) 12.5 mg PO DAILY [facility] Rosuvastatin Calcium (Crestor) 2.5 mg PO DAILY [facility] Physical Exam - Constitutional Appears: Chronically Ill - Head Exam Head Exam: ATRAUMATIC, NORMAL INSPECTION, NORMOCEPHALIC - Eye Exam Additional comments: Keeps eyes closed, unable to examine - ENT Exam ENT Exam: Normal Exam - Neck Exam Neck exam: Positive for: Normal Inspection - Respiratory Exam Respiratory Exam: Clear to Auscultation Bilateral, NORMAL BREATHING PATTERN - Cardiovascular Exam Cardiovascular Exam: REGULAR RHYTHM - GI/Abdominal Exam GI & Abdominal Exam: Normal Bowel Sounds, Soft - Rectal Exam Rectal Exam: Deferred - Extremities Exam Extremities exam: Positive for: normal inspection - Back Exam Back exam: NORMAL INSPECTION - Neurological Exam Neurological exam: Alert, Altered - Psychiatric Exam Psychiatric exam: Agitated - Skin Skin Exam: Normal Color, Warm Results - Vital Signs Recent Vital Signs: Last Vital Signs Temp 98.2 F 02/21/17 08:41 Pulse 77 02/21/17 08:41 Resp 18 02/21/17 08:41 BP 98/60 L 02/21/17 08:41 Pulse Ox 96 02/21/17 08:41 - Labs Result Diagrams: 02/21/17 04:00 02/21/17 07:05 Labs: Laboratory Results - last 24 hr 02/20/17 02/20/17 02/20/17 00:15 20:30 20:38 WBC 11.5 H D RBC 4.19 Hgb 12.0 Hct 36.9 MCV 88.1 D MCH 28.6 MCHC 32.5 L RDW 16.4 H Plt Count 289 MPV 7.8 Neut % (Auto) 90.1 H Lymph % (Auto) 7.0 L [place] % (Auto) 2.2 Eos % (Auto) 0.5 Baso % (Auto) 0.2 Neut # 10.3 H Lymph # 0.8 L [place] # 0.3 Eos # 0.1 Baso # 0.0 Neutrophils % (Manual) 72 Band Neutrophils % 14 H* Lymphocytes % (Manual) 7 L Monocytes % (Manual) 6 Eosinophils % (Manual) 1 Basophils % (Manual) Platelet Estimate Normal Large Platelets Present Hypochromasia (manual) Slight Anisocytosis (manual) Microcytosis (manual) Slight Ovalocytes Slight PT INR APTT pO2 26 L 39 VBG pH 7.26 L 7.41 VBG pCO2 47 36 L VBG HCO3 18.5 23.2 VBG Total CO2 22.5 23.9 VBG O2 Sat (Calc) 51.6 79.9 H VBG Base Excess -6.1 L -1.4 L VBG Potassium 4.9 5.0 Sodium 143.0 141.0 Chloride 115.0 H 104.0 Glucose 122 H 128 H Lactate 2.4 H 3.1 H Potassium Carbon Dioxide Anion Gap BUN Creatinine Est GFR ( Amer) Est GFR (Non-Af Amer) Random Glucose Calcium Phosphorus Magnesium Total Bilirubin AST ALT Alkaline Phosphatase Total Creatine Kinase CK-MB (Mass) Troponin I Total Protein Albumin Globulin Albumin/Globulin Ratio Triglycerides Cholesterol LDL Cholesterol Direct HDL Cholesterol Procalcitonin Venous Blood Potassium 4.9 5.0 Urine Color Urine Clarity Urine pH Ur Specific [place] Urine Protein Urine Glucose (UA) Urine Ketones Urine Blood Urine Nitrate Urine Bilirubin Urine Urobilinogen Ur Leukocyte Esterase Urine WBC (Auto) Urine RBC (Auto) Ur Squamous Epith Cells Urine Bacteria Influenza Typ A,B (EIA) 02/20/17 02/20/17 02/20/17 20:38 20:38 20:46 WBC RBC Hgb Hct MCV MCH MCHC RDW Plt Count MPV Neut % (Auto) Lymph % (Auto) [place] % (Auto) Eos % (Auto) Baso % (Auto) Neut # Lymph # [place] # Eos # Baso # Neutrophils % (Manual) Band Neutrophils % Lymphocytes % (Manual) Monocytes % (Manual) Eosinophils % (Manual) Basophils % (Manual) Platelet Estimate Large Platelets Hypochromasia (manual) Anisocytosis (manual) Microcytosis (manual) Ovalocytes PT 12.7 H INR 1.1 APTT 32 pO2 VBG pH VBG pCO2 VBG HCO3 VBG Total CO2 VBG O2 Sat (Calc) VBG Base Excess VBG Potassium Sodium 141 Chloride 106 Glucose Lactate Potassium 4.7 Carbon Dioxide 24 Anion Gap 15 BUN 19 H Creatinine 1.0 Est GFR ( Amer) > 60 Est GFR (Non-Af Amer) 52 Random Glucose 132 H Calcium 9.0 Phosphorus 2.4 L Magnesium 1.5 L Total Bilirubin 0.6 AST 36 ALT 38 Alkaline Phosphatase 108 Total Creatine Kinase CK-MB (Mass) Troponin I Total Protein 8.3 Albumin 4.1 Globulin 4.2 H Albumin/Globulin Ratio 1.0 Triglycerides Cholesterol LDL Cholesterol Direct HDL Cholesterol Procalcitonin 3.19 H Venous Blood Potassium Urine Color Urine Clarity Urine pH Ur Specific [place] Urine Protein Urine Glucose (UA) Urine Ketones Urine Blood Urine Nitrate Urine Bilirubin Urine Urobilinogen Ur Leukocyte Esterase Urine WBC (Auto) Urine RBC (Auto) Ur Squamous Epith Cells Urine Bacteria Influenza Typ A,B (EIA) 02/20/17 02/21/17 02/21/17 21:03 04:00 05:41 WBC 16.6 H RBC 3.45 L Hgb 10.0 L D Hct 31.2 L MCV 90.4 D MCH 28.9 MCHC 32.0 L RDW 16.7 H Plt Count 248 MPV 7.8 Neut % (Auto) 89.3 H Lymph % (Auto) 6.9 L [place] % (Auto) 3.5 Eos % (Auto) 0.0 Baso % (Auto) 0.3 Neut # 14.9 H Lymph # 1.1 [place] # 0.6 Eos # 0.0 Baso # 0.1 Neutrophils % (Manual) 71 Band Neutrophils % 13 H* Lymphocytes % (Manual) 12 L Monocytes % (Manual) 3 Eosinophils % (Manual) Basophils % (Manual) 1 Platelet Estimate Normal Large Platelets Hypochromasia (manual) Anisocytosis (manual) Slight Microcytosis (manual) Ovalocytes PT INR APTT pO2 VBG pH VBG pCO2 VBG HCO3 VBG Total CO2 VBG O2 Sat (Calc) VBG Base Excess VBG Potassium Sodium Chloride Glucose Lactate Potassium Carbon Dioxide Anion Gap BUN Creatinine Est GFR ( Amer) Est GFR (Non-Af Amer) Random Glucose Calcium Phosphorus Magnesium Total Bilirubin AST ALT Alkaline Phosphatase Total Creatine Kinase CK-MB (Mass) Troponin I Total Protein Albumin Globulin Albumin/Globulin Ratio Triglycerides Cholesterol LDL Cholesterol Direct HDL Cholesterol Procalcitonin Venous Blood Potassium Urine Color Yellow Urine Clarity Clear Urine pH 6.0 Ur Specific [place] 1.012 Urine Protein Negative Urine Glucose (UA) Normal Urine Ketones Negative Urine Blood 1+ H Urine Nitrate Negative Urine Bilirubin Negative Urine Urobilinogen Normal Ur Leukocyte Esterase Neg Urine WBC (Auto) 6 H Urine RBC (Auto) 10 H Ur Squamous Epith Cells 1 Urine Bacteria Rare Influenza Typ A,B (EIA) Negative for flu a/b 02/21/17 02/21/17 02/21/17 07:05 07:52 09:35 WBC RBC Hgb Hct MCV MCH MCHC RDW Plt Count MPV Neut % (Auto) Lymph % (Auto) [place] % (Auto) Eos % (Auto) Baso % (Auto) Neut # Lymph # [place] # Eos # Baso # Neutrophils % (Manual) Band Neutrophils % Lymphocytes % (Manual) Monocytes % (Manual) Eosinophils % (Manual) Basophils % (Manual) Platelet Estimate Large Platelets Hypochromasia (manual) Anisocytosis (manual) Microcytosis (manual) Ovalocytes PT INR APTT pO2 36 VBG pH 7.32 VBG pCO2 42 VBG HCO3 20.6 VBG Total CO2 22.9 VBG O2 Sat (Calc) 70.9 H VBG Base Excess -4.3 L VBG Potassium 4.4 Sodium 144 142.0 Chloride 112 H 113.0 H Glucose 146 H Lactate 3.2 H Potassium 4.2 Carbon Dioxide 18 L Anion Gap 18 BUN 17 Creatinine 1.0 Est GFR ( Amer) > 60 Est GFR (Non-Af Amer) 52 Random Glucose 142 H Calcium 7.6 L Phosphorus 3.1 Magnesium 1.5 L Total Bilirubin 0.5 AST 64 H D ALT 40 Alkaline Phosphatase 89 Total Creatine Kinase CK-MB (Mass) Troponin I Total Protein 5.7 L Albumin 3.3 L Globulin 2.4 Albumin/Globulin Ratio 1.4 Triglycerides 115 Cholesterol 129 LDL Cholesterol Direct 57 HDL Cholesterol 31 Procalcitonin Venous Blood Potassium 4.4 Urine Color Urine Clarity Urine pH Ur Specific [place] Urine Protein Urine Glucose (UA) Urine Ketones Urine Blood Urine Nitrate Urine Bilirubin Urine Urobilinogen Ur Leukocyte Esterase Urine WBC (Auto) Urine RBC (Auto) Ur Squamous Epith Cells Urine Bacteria Influenza Typ A,B (EIA) 02/21/17 09:59 WBC RBC Hgb Hct MCV MCH MCHC RDW Plt Count MPV Neut % (Auto) Lymph % (Auto) [place] % (Auto) Eos % (Auto) Baso % (Auto) Neut # Lymph # [place] # Eos # Baso # Neutrophils % (Manual) Band Neutrophils % Lymphocytes % (Manual) Monocytes % (Manual) Eosinophils % (Manual) Basophils % (Manual) Platelet Estimate Large Platelets Hypochromasia (manual) Anisocytosis (manual) Microcytosis (manual) Ovalocytes PT INR APTT pO2 VBG pH VBG pCO2 VBG HCO3 VBG Total CO2 VBG O2 Sat (Calc) VBG Base Excess VBG Potassium Sodium Chloride Glucose Lactate Potassium Carbon Dioxide Anion Gap BUN Creatinine Est GFR ( Amer) Est GFR (Non-Af Amer) Random Glucose Calcium Phosphorus Magnesium Total Bilirubin AST ALT Alkaline Phosphatase Total Creatine Kinase 1127 H CK-MB (Mass) 7.61 H Troponin I 0.0150 Total Protein Albumin Globulin Albumin/Globulin Ratio Triglycerides Cholesterol LDL Cholesterol Direct HDL Cholesterol Procalcitonin Venous Blood Potassium Urine Color Urine Clarity Urine pH Ur Specific [place] Urine Protein Urine Glucose (UA) Urine Ketones Urine Blood Urine Nitrate Urine Bilirubin Urine Urobilinogen Ur Leukocyte Esterase Urine WBC (Auto) Urine RBC (Auto) Ur Squamous Epith Cells Urine Bacteria Influenza Typ A,B (EIA) Assessment & Plan - Assessment and Plan (Free Text) Assessment: Palliative consult Code status Full Code, no Advance directive on chart, PPS 20% I reviewed medical records, all diagnostic studies, examined patient in the bed. Patient seen and examined in bed, alert, confused and agitated . Patient speaks language other than [place], speech is not clear and patient is to restless to fallow up conversation. Physical exam is unremarkable . Per nursing patient shows poor appetite and is constantly trying to get OOB, and puts her self at risk of injury.Patient's granddaughter is at bed side and patient appears a lot calmer around her. Patient's son Mr. Galileo Solis [phone], was called for family meeting to be scheduled. Mr. Gurrola was not able to come in before after 5 pm today and directed me to talk to his wihe, who is along with him, primary client care coordinator of patient at home. The daughter in law came in, and after discussing patient's recent health status , prior to hospitalization, I did not get an impression that the daughter in law was providing me with valid informations. I questioned the presence of Living will and she answered that her was mentioning something about it, but she was not sure what it was. I asked for his presence and reassured her that her participation was very valid but the son is a next of Kin and he should be attending family meeting as well. We agreed to check with patient's son in AM and see if he could discuss goals of care at least over the phone. Impression * This an elderly lady diagnosed with sepsis * Agitation and confusion most likely result of sepsis and Hx of Alzheimer's * Decreased PO intake, poor appetite * Patient is not able to participate id goals of care discussion * The son was not able to attend family meeting * Daughter in law who attended the meeting was not able to fully provide needed answers Suggestion * Patient needs a safety watch * Symptoms control * Monitor PO intake, may need artificial hydration I will contact patient's son again in AM and see if could discuss over the phone his goals of care for his mother and Code status. Thank you very much for consulting Palliative Care
--- NOTE | 2017-02-21 15:23 | CP.PCM.CON ---
History of Present Illness - History of Present Illness History of Present Illness: dictated Past Patient History - Infectious Disease Hx of Infectious Diseases: None - Past Medical History & Family History Past Medical History?: Yes - Past Social History Smoking Status: Never Smoked Alcohol: None Home Situation {Lives}: With Family Domestic Violence: Negative - CARDIAC Hx Hypercholesterolemia: Yes Hx Hypertension: Yes - PULMONARY Other/Comment: Hx of upper respiratory infection. - NEUROLOGICAL Hx Alzheimer's Disease: Yes - RENAL Hx Chronic Kidney Disease: No - ENDOCRINE/METABOLIC Hx Hypothyroidism: Yes (on synthroid) - MUSCULOSKELETAL/RHEUMATOLOGICAL Hx Arthritis: Yes - PSYCHIATRIC Hx Anxiety: Yes Hx Depression: Yes Hx Substance Use: No - SURGICAL HISTORY Hx Surgeries: Yes Other/Comment: "knee surgery" to unknown side as per son. - ANESTHESIA Hx Anesthesia: Yes Hx Anesthesia Reactions: No Hx Malignant Hyperthermia: No Meds Allergies/Adverse Reactions: Allergies Allergy/AdvReac Type Severity Reaction Status Date / Time No Known Allergies Allergy Verified 02/20/17 19:47 - Medications Medications: Current Medications Acetaminophen (Tylenol 325mg Tab) 650 mg PO Q6 PRN PRN Reason: Fever >100.4 F Albuterol/Ipratropium (Duoneb 3 Mg/0.5 Mg (3 Ml) Ud) 3 ml INH RQ2 PRN PRN Reason: Shortness of Breath Last Admin: 02/21/17 04:02 Dose: 3 ml Donepezil HCl (Aricept) 5 mg PO DAILY [facility] Last Admin: 02/21/17 14:27 Dose: 5 mg Ferrous Sulfate (Feosol) 325 mg PO DAILY [facility] Last Admin: 02/21/17 14:27 Dose: 325 mg Heparin Sodium (Porcine) (Heparin) 5,000 units SC Q12 [facility] Last Admin: 02/21/17 10:51 Dose: 5,000 units Sodium Chloride (Sodium Chloride 0.9%) 1,000 mls @ 100 mls/hr IV .Q10H [facility] Last Admin: 02/21/17 14:35 Dose: 100 mls/hr Azithromycin 500 mg/ Sodium (Chloride) 250 mls @ 166.667 mls/hr IVPB DAILY [facility] Last Admin: 02/21/17 10:48 Dose: 166.667 mls/hr Ceftriaxone Sodium 1 gm/ (Sodium Chloride) 100 mls @ 100 mls/hr IVPB Q24H [facility] Last Admin: 02/21/17 12:53 Dose: 100 mls/hr Pantoprazole Sodium (Protonix Ec Tab) 40 mg PO DAILY [facility] Last Admin: 02/21/17 10:55 Dose: 40 mg Pantoprazole Sodium (Protonix Ec Tab) 40 mg PO DAILY [facility] Paroxetine HCl (Paxil Cr) 12.5 mg PO DAILY [facility] Rosuvastatin Calcium (Crestor) 2.5 mg PO DAILY [facility] Results - Vital Signs Recent Vital Signs: Last Vital Signs Temp 98.2 F 02/21/17 08:41 Pulse 77 02/21/17 08:41 Resp 18 02/21/17 08:41 BP 98/60 L 02/21/17 08:41 Pulse Ox 96 02/21/17 08:41 - Labs Result Diagrams: 02/21/17 04:00 02/21/17 07:05 Labs: Laboratory Results - last 24 hr 02/20/17 02/20/17 02/20/17 00:15 20:30 20:38 WBC 11.5 H D RBC 4.19 Hgb 12.0 Hct 36.9 MCV 88.1 D MCH 28.6 MCHC 32.5 L RDW 16.4 H Plt Count 289 MPV 7.8 Neut % (Auto) 90.1 H Lymph % (Auto) 7.0 L [place] % (Auto) 2.2 Eos % (Auto) 0.5 Baso % (Auto) 0.2 Neut # 10.3 H Lymph # 0.8 L [place] # 0.3 Eos # 0.1 Baso # 0.0 Neutrophils % (Manual) 72 Band Neutrophils % 14 H* Lymphocytes % (Manual) 7 L Monocytes % (Manual) 6 Eosinophils % (Manual) 1 Basophils % (Manual) Platelet Estimate Normal Large Platelets Present Hypochromasia (manual) Slight Anisocytosis (manual) Microcytosis (manual) Slight Ovalocytes Slight PT INR APTT pO2 26 L 39 VBG pH 7.26 L 7.41 VBG pCO2 47 36 L VBG HCO3 18.5 23.2 VBG Total CO2 22.5 23.9 VBG O2 Sat (Calc) 51.6 79.9 H VBG Base Excess -6.1 L -1.4 L VBG Potassium 4.9 5.0 Sodium 143.0 141.0 Chloride 115.0 H 104.0 Glucose 122 H 128 H Lactate 2.4 H 3.1 H Potassium Carbon Dioxide Anion Gap BUN Creatinine Est GFR ( Amer) Est GFR (Non-Af Amer) Random Glucose Calcium Phosphorus Magnesium Total Bilirubin AST ALT Alkaline Phosphatase Total Creatine Kinase CK-MB (Mass) Troponin I Total Protein Albumin Globulin Albumin/Globulin Ratio Triglycerides Cholesterol LDL Cholesterol Direct HDL Cholesterol Procalcitonin Venous Blood Potassium 4.9 5.0 Urine Color Urine Clarity Urine pH Ur Specific [place] Urine Protein Urine Glucose (UA) Urine Ketones Urine Blood Urine Nitrate Urine Bilirubin Urine Urobilinogen Ur Leukocyte Esterase Urine WBC (Auto) Urine RBC (Auto) Ur Squamous Epith Cells Urine Bacteria Influenza Typ A,B (EIA) 02/20/17 02/20/17 02/20/17 20:38 20:38 20:46 WBC RBC Hgb Hct MCV MCH MCHC RDW Plt Count MPV Neut % (Auto) Lymph % (Auto) [place] % (Auto) Eos % (Auto) Baso % (Auto) Neut # Lymph # [place] # Eos # Baso # Neutrophils % (Manual) Band Neutrophils % Lymphocytes % (Manual) Monocytes % (Manual) Eosinophils % (Manual) Basophils % (Manual) Platelet Estimate Large Platelets Hypochromasia (manual) Anisocytosis (manual) Microcytosis (manual) Ovalocytes PT 12.7 H INR 1.1 APTT 32 pO2 VBG pH VBG pCO2 VBG HCO3 VBG Total CO2 VBG O2 Sat (Calc) VBG Base Excess VBG Potassium Sodium 141 Chloride 106 Glucose Lactate Potassium 4.7 Carbon Dioxide 24 Anion Gap 15 BUN 19 H Creatinine 1.0 Est GFR ( Amer) > 60 Est GFR (Non-Af Amer) 52 Random Glucose 132 H Calcium 9.0 Phosphorus 2.4 L Magnesium 1.5 L Total Bilirubin 0.6 AST 36 ALT 38 Alkaline Phosphatase 108 Total Creatine Kinase CK-MB (Mass) Troponin I Total Protein 8.3 Albumin 4.1 Globulin 4.2 H Albumin/Globulin Ratio 1.0 Triglycerides Cholesterol LDL Cholesterol Direct HDL Cholesterol Procalcitonin 3.19 H Venous Blood Potassium Urine Color Urine Clarity Urine pH Ur Specific [place] Urine Protein Urine Glucose (UA) Urine Ketones Urine Blood Urine Nitrate Urine Bilirubin Urine Urobilinogen Ur Leukocyte Esterase Urine WBC (Auto) Urine RBC (Auto) Ur Squamous Epith Cells Urine Bacteria Influenza Typ A,B (EIA) 02/20/17 02/21/17 02/21/17 21:03 04:00 05:41 WBC 16.6 H RBC 3.45 L Hgb 10.0 L D Hct 31.2 L MCV 90.4 D MCH 28.9 MCHC 32.0 L RDW 16.7 H Plt Count 248 MPV 7.8 Neut % (Auto) 89.3 H Lymph % (Auto) 6.9 L [place] % (Auto) 3.5 Eos % (Auto) 0.0 Baso % (Auto) 0.3 Neut # 14.9 H Lymph # 1.1 [place] # 0.6 Eos # 0.0 Baso # 0.1 Neutrophils % (Manual) 71 Band Neutrophils % 13 H* Lymphocytes % (Manual) 12 L Monocytes % (Manual) 3 Eosinophils % (Manual) Basophils % (Manual) 1 Platelet Estimate Normal Large Platelets Hypochromasia (manual) Anisocytosis (manual) Slight Microcytosis (manual) Ovalocytes PT INR APTT pO2 VBG pH VBG pCO2 VBG HCO3 VBG Total CO2 VBG O2 Sat (Calc) VBG Base Excess VBG Potassium Sodium Chloride Glucose Lactate Potassium Carbon Dioxide Anion Gap BUN Creatinine Est GFR ( Amer) Est GFR (Non-Af Amer) Random Glucose Calcium Phosphorus Magnesium Total Bilirubin AST ALT Alkaline Phosphatase Total Creatine Kinase CK-MB (Mass) Troponin I Total Protein Albumin Globulin Albumin/Globulin Ratio Triglycerides Cholesterol LDL Cholesterol Direct HDL Cholesterol Procalcitonin Venous Blood Potassium Urine Color Yellow Urine Clarity Clear Urine pH 6.0 Ur Specific [place] 1.012 Urine Protein Negative Urine Glucose (UA) Normal Urine Ketones Negative Urine Blood 1+ H Urine Nitrate Negative Urine Bilirubin Negative Urine Urobilinogen Normal Ur Leukocyte Esterase Neg Urine WBC (Auto) 6 H Urine RBC (Auto) 10 H Ur Squamous Epith Cells 1 Urine Bacteria Rare Influenza Typ A,B (EIA) Negative for flu a/b 02/21/17 02/21/17 02/21/17 07:05 07:52 09:35 WBC RBC Hgb Hct MCV MCH MCHC RDW Plt Count MPV Neut % (Auto) Lymph % (Auto) [place] % (Auto) Eos % (Auto) Baso % (Auto) Neut # Lymph # [place] # Eos # Baso # Neutrophils % (Manual) Band Neutrophils % Lymphocytes % (Manual) Monocytes % (Manual) Eosinophils % (Manual) Basophils % (Manual) Platelet Estimate Large Platelets Hypochromasia (manual) Anisocytosis (manual) Microcytosis (manual) Ovalocytes PT INR APTT pO2 36 VBG pH 7.32 VBG pCO2 42 VBG HCO3 20.6 VBG Total CO2 22.9 VBG O2 Sat (Calc) 70.9 H VBG Base Excess -4.3 L VBG Potassium 4.4 Sodium 144 142.0 Chloride 112 H 113.0 H Glucose 146 H Lactate 3.2 H Potassium 4.2 Carbon Dioxide 18 L Anion Gap 18 BUN 17 Creatinine 1.0 Est GFR ( Amer) > 60 Est GFR (Non-Af Amer) 52 Random Glucose 142 H Calcium 7.6 L Phosphorus 3.1 Magnesium 1.5 L Total Bilirubin 0.5 AST 64 H D ALT 40 Alkaline Phosphatase 89 Total Creatine Kinase CK-MB (Mass) Troponin I Total Protein 5.7 L Albumin 3.3 L Globulin 2.4 Albumin/Globulin Ratio 1.4 Triglycerides 115 Cholesterol 129 LDL Cholesterol Direct 57 HDL Cholesterol 31 Procalcitonin Venous Blood Potassium 4.4 Urine Color Urine Clarity Urine pH Ur Specific [place] Urine Protein Urine Glucose (UA) Urine Ketones Urine Blood Urine Nitrate Urine Bilirubin Urine Urobilinogen Ur Leukocyte Esterase Urine WBC (Auto) Urine RBC (Auto) Ur Squamous Epith Cells Urine Bacteria Influenza Typ A,B (EIA) 02/21/17 09:59 WBC RBC Hgb Hct MCV MCH MCHC RDW Plt Count MPV Neut % (Auto) Lymph % (Auto) [place] % (Auto) Eos % (Auto) Baso % (Auto) Neut # Lymph # [place] # Eos # Baso # Neutrophils % (Manual) Band Neutrophils % Lymphocytes % (Manual) Monocytes % (Manual) Eosinophils % (Manual) Basophils % (Manual) Platelet Estimate Large Platelets Hypochromasia (manual) Anisocytosis (manual) Microcytosis (manual) Ovalocytes PT INR APTT pO2 VBG pH VBG pCO2 VBG HCO3 VBG Total CO2 VBG O2 Sat (Calc) VBG Base Excess VBG Potassium Sodium Chloride Glucose Lactate Potassium Carbon Dioxide Anion Gap BUN Creatinine Est GFR ( Amer) Est GFR (Non-Af Amer) Random Glucose Calcium Phosphorus Magnesium Total Bilirubin AST ALT Alkaline Phosphatase Total Creatine Kinase 1127 H CK-MB (Mass) 7.61 H Troponin I 0.0150 Total Protein Albumin Globulin Albumin/Globulin Ratio Triglycerides Cholesterol LDL Cholesterol Direct HDL Cholesterol Procalcitonin Venous Blood Potassium Urine Color Urine Clarity Urine pH Ur Specific [place] Urine Protein Urine Glucose (UA) Urine Ketones Urine Blood Urine Nitrate Urine Bilirubin Urine Urobilinogen Ur Leukocyte Esterase Urine WBC (Auto) Urine RBC (Auto) Ur Squamous Epith Cells Urine Bacteria Influenza Typ A,B (EIA)
[2017-02-21] MEDS ORDERED: Sodium Chloride 0.9% 1,000 ML IV ONE (15:25)
--- NOTE | 2017-02-21 16:22 | CT ---
PROCEDURE: CT Abdomen and Pelvis without intravenous contrast HISTORY: septic shock COMPARISON: None. TECHNIQUE: CT scan of the abdomen and pelvis was performed without administration of intravenous contrast. Oral contrast was not administered. Coronal and sagittal reformatted images were obtained. Radiation dose: Total exam DLP = 998.86 mGy-cm. This CT exam was performed using one or more of the following dose reduction techniques: Automated exposure control, adjustment of the mA and/or kV according to patient size, and/or use of iterative reconstruction technique. FINDINGS: LOWER THORAX: There is linear atelectasis in the right lateral lung base. There are small pleural effusions. LIVER: Normal in size. There are nonspecific punctate calcifications in the posterior right hepatic lobe. No gross lesion or ductal dilatation. GALLBLADDER AND BILE DUCTS: The gallbladder is distended and there is a solitary stone. No gallbladder wall thickening or pericholecystic fluid. PANCREAS: There is diffuse fatty atrophy of the pancreas. No gross lesion or ductal dilatation. SPLEEN: Normal in size. ADRENALS: There is a small calcified right adrenal gland, slightly sequela of remote infection. No discrete nodule in the left adrenal gland. KIDNEYS AND URETERS: There is mild cortical atrophy in the kidneys. There is a punctate nonobstructing stone in the left interpolar region No hydronephrosis. There is a 2.5 cm simple cyst in the left interpolar region VASCULATURE: There are advanced atherosclerotic aortoiliac calcifications. No aortic aneurysm. BOWEL: The small bowel loops are normal in caliber. There is left colonic diverticulosis without CT evidence for acute diverticulitis. There is fecal stasis in the sigmoid colon and rectum. No bowel dilatation or obstruction APPENDIX: Normal appendix. PERITONEUM: No free fluid. No free air. LYMPH NODES: No enlarged lymph nodes. BLADDER: There is an indwelling Yanez catheter with subsequent decompression of the urinary bladder and intraluminal air. REPRODUCTIVE: The uterus is normal in size. BONES: No acute fracture. There is diffuse bone demineralization and advanced multilevel degenerative disc disease. OTHER FINDINGS: None. IMPRESSION: 1. Gallbladder distention and small solitary gallstone. If clinically indicated, right upper quadrant ultrasound may be performed to exclude cholecystitis. 2. Left colonic diverticulosis without CT evidence for acute diverticulitis. Fecal stasis in the sigmoid colon and rectum. No bowel dilatation or obstruction. 3. Additional comments as described above.
--- NOTE | 2017-02-21 16:28 | CARD ---
APPROVED REPORT EXAM: Two-dimensional and M-mode echocardiogram with Doppler and color Doppler. Other Information Technically limited study due to UNCOOPERATIVE PT INDICATION Congestive Heart Failure 2D DIMENSIONS IVSd0.8 (0.7-1.1cm)LVDd3.9 (3.9-5.9cm) PWd0.7 (0.7-1.1cm)LVDs2.8 (2.5-4.0cm) FS (%) 27.8 %LVEF (%)54.6 (>50%) M-Mode DIMENSIONS Left Atrium (MM)3.22 (2.5-4.0cm)Aortic Root2.82 (2.2-3.7cm) Aortic Cusp Exc.1.65 (1.5-2.0cm) Mitral Valve MV E Mglewzyv100.5cm/sMV A Eyapdiad147.4cm/sE/A ratio1.0 TDI E/Lateral E'0.0E/Medial E'0.0 Tricuspid Valve TR Peak Rgxhnmdq341dv/sTR Peak Gr.[id number] LEFT VENTRICLE The left ventricle is normal size. There is normal left ventricular wall thickness. The left ventricular function is normal. The left ventricular ejection fraction is within the normal range. There is normal LV segmental wall motion. Transmitral Doppler flow pattern is Grade I-abnormal relaxation pattern. RIGHT VENTRICLE The right ventricle is normal size. There is normal right ventricular wall thickness. The right ventricular systolic function is normal. ATRIA The left atrium size is normal. The right atrium size is normal. AORTIC VALVE The aortic valve is mildly thickened. No aortic regurgitation is present. MITRAL VALVE The mitral valve is mildly thickened. There is no evidence of mitral valve prolapse. TRICUSPID VALVE There is mild pulmonary hypertension. GREAT VESSELS The aortic root is normal in size. PERICARDIAL EFFUSION There is a trace circumferential pericardial effusion. <Conclusion> The left ventricle is normal size. There is normal left ventricular wall thickness. The left ventricular function is normal. The left ventricular ejection fraction is within the normal range. There is normal LV segmental wall motion. Transmitral Doppler flow pattern is Grade I-abnormal relaxation pattern. There is mild pulmonary hypertension.
[2017-02-21] MEDS ORDERED: Bisacodyl 5mg EC Tab PO ONE (17:58)
[2017-02-21] MEDS ORDERED: Magnesium Sulfate 1 gm in D5W 1 GM/100 ML BAG IVPB ONE (18:27)
[2017-02-21] MEDS: Meropenem 1 GM in Sodium Chloride 0.9% 100 ML IVPB SCH (18:36)
--- NOTE | 2017-02-21 21:48 | CARD ---
APPROVED REPORT EKG Measurement Heart [id number] <Conclusion> Sinus tachycardia Left axis deviation Cannot rule out Anterior infarct, age undetermined Abnormal ECG
[2017-02-21] MEDS ORDERED: Rosuvastatin Calcium 2.5 mg Tab PO SCH (22:00)
[2017-02-22] MEDS: Meropenem 1 GM in Sodium Chloride 0.9% 100 ML IVPB SCH ×3 (01:14→17:03)
--- NOTE | 2017-02-22 02:06 | CON ---
DATE: INFECTIOUS DISEASE CONSULTATION REQUESTED BY: Dr. Aaron. HISTORY OF PRESENT ILLNESS: This patient is an 86-year-old female. She was admitted from home, was found by the son to be lethargic and brought by the ambulance. She has been having lot of saliva coming out through her mouth and was seen with chills and the uxeqabpp-mv-arp says that she is mostly taking medication for her constipation. Right now, she is mildly awake and she understands Tajik language. The [id number]-bf-pqf is at the bedside. She complaining of some abdominal pain as she is probably constipated. She came in here with fever, chills and unresponsive. She also has a history of anxiety, dementia, hyperlipidemia, hypertension, was brought with fever, chills and unresponsiveness. She is now poorly opening her eyes. She denies any ear, nose, throat problems. She was seen by the PCP 2 days ago. She had a productive cough, they gave her Levaquin, but it was never could be filled. She came via ambulance to the hospital. She also was complaining of some right thumb pain and she came in with altered mental status. PAST MEDICAL HISTORY: Significant for dementia, anxiety, hyperlipidemia and hypertension. MEDICATIONS: She has been on clonazepam, Seroquel, zolpidem, losartan, paroxetine, Protonix, oxybutynin, pravastatin, meclizine, Mapap, Mycostatin, and Zofran. Here she is on Tylenol, DuoNeb, Zithromax, ceftriaxone, Aricept, Feosol, heparin and is on pantoprazole, Protonix, Paxil, Crestor and IV fluids. PAST SURGICAL HISTORY: Left knee replacement. ALLERGIES: SHE IS NOT ALLERGIC TO ANY MEDICINES. FAMILY HISTORY: Brother had [place] and second brother had lung cancer. SOCIAL HISTORY: Negative for smoking or drinking or alcohol abuse. 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 REVIEW OF SYSTEMS: She did complain of abdominal pain. She did have a cough and cold before. She came in with fever, altered mental status. Her blood pressure is 98/60 at this time and she has a history of hypertension, anxiety and hyperlipidemia. PHYSICAL EXAMINATION VITAL SIGNS: I find her temperature is 98.2, pulse 77, blood pressure 98/60, respirations are 18. GENERAL: She is poorly responsive, but is following the commands whatever the moaygrod-gh-fhj is saying. HEENT: Head is atraumatic, normocephalic. Pupils are reacting to light, but poorly open. Tongue is dry. NECK: Supple. JVP is flat. LUNGS: Clear, occasional rhonchi. HEART: S1, S2 is regular. ABDOMEN: Soft, nontender. No guarding, no rigidity present. EXTREMITIES: Have no edema, clubbing or cyanosis noted. LABORATORY DATA: Labs are noted, shows white count is 16.6, hemoglobin 10, hematocrit 31.5, platelet count is 248, bands are 13, lymphs are 12. ABG was done, which showed pH of 7.32, CO2 is 42, oxygen saturation 70.9 and they did a lactate level, which is 3.2 and is increasing at this time and had a MB done - CK-MB - it is high, troponin is 0.0150 - needs to be seen, procalcitonin level was 3.19. UA shows 1+ blood, wbc 6 and rbc 10. Influenza flu swab was negative. She had a head CT and a chest x-ray and the head CT shows limited study; patient motion artifact despite several attempts, focal low attenuation seen in right cerebellum suggestive of chronic infarct, chronic microvascular ischemic changes, sinus mucosal disease. Consider MRI and then the head CT. Chest CT was done, chest CT shows no acute findings. ASSESSMENT AND PLAN: So at this time, she has severe bandemia with calcitonin and lactate level elevated and is in septic shock with hypotension. Suggest to give a bolus of fluids and I would get a CAT scan of the abdomen and pelvis at this time. She did get a dose of gentamicin yesterday and I would have given her Zosyn, I do not know, it was discontinued and she got vancomycin yesterday. So I think, we need to give those antibiotics and Zosyn and Zithromax as the x-ray is negative. We will follow. Prognosis is guarded and we will discuss with the nurse. Malick De La Fuente MD
[2017-02-22] MEDS: Sodium Chloride 0.9% 1,000 ML IV SCH (06:26)
[2017-02-22] MEDS ORDERED: Albuterol-Ipratrop 3 mg / 0.5 (3 ml) UD INH STA (07:43)
[2017-02-22 08:11] LABS: BASO % 0.2 % (0.0-2.0); EOS % 0.2 % (0.0-4.0); HEMATOCRIT 30.8 % (34.0-47.0); LYMPH % 8.6 % (20.0-40.0); MEAN CELL VOLUME 89.3 fL (81.0-99.0); MEAN CORPUSCULAR HEMOGLOBIN 28.8 pg (27.0-31.0); MEAN CORPUSCULAR HGB CONC 32.3 g/dL (33.0-37.0); MEAN PLATELET VOLUME 8.1 fL (7.2-11.7); MONO # 0.4 K/uL (0.0-0.8); MONO % 2.9 % (0.0-10.0); PLATELET COUNT 258 K/uL (130-400); RED CELL DISTRIBUTION WIDTH 16.6 % (11.5-14.5); WHITE BLOOD COUNT 12.2 K/uL (4.8-10.8)
[2017-02-22 08:32] LABS: ALB/GLOB RATIO 0.9 (1.0-2.1); ALKALINE PHOSPHATASE 105 U/L (38-126); ALT/SGPT 50 U/L (9-52); AST/SGOT 60 U/L (14-36); BILIRUBIN,TOTAL 0.4 mg/dL (0.2-1.3); BLOOD UREA NITROGEN 12 mg/dL (7-17); CARBON DIOXIDE 25 mmol/L (22-30); CHLORIDE 111 mmol/L (98-107); GFR AFRICAN-AMERICAN > 60; GLUCOSE,RANDOM 105 mg/dL (65-105); IRON < 10 ug/dL (37-170); MAGNESIUM 1.9 mg/dL (1.6-2.3); PHOSPHOROUS 2.9 mg/dL (2.5-4.5); POTASSIUM 4.1 mmol/L (3.6-5.2); SODIUM 143 mmol/L (132-148)
--- NOTE | 2017-02-22 08:36 | RAD ---
HISTORY: fever COMPARISON: No prior. FINDINGS: LUNGS: Mild infiltrates are increased at the mid right lung zone laterally and are newly identified at the left perihilar region. PLEURA: No significant pleural effusion identified, no pneumothorax apparent. CARDIOVASCULAR: Normal. OSSEOUS STRUCTURES: No significant abnormalities. VISUALIZED UPPER ABDOMEN: Normal. OTHER FINDINGS: None. IMPRESSION: Interval worsening of right-sided pneumonia with new left limited perihilar infiltrate now identified.
[2017-02-22 08:58] LABS: THYROID STIMULATING HORMONE 3.77 mIU/L (0.46-4.68)
[2017-02-22] MEDS: Pantoprazole 40 mg EC Tab PO SCH (09:14)
[2017-02-22] MEDS: Rosuvastatin Calcium 2.5 mg Tab PO SCH (09:15)
[2017-02-22] MEDS: Saccharomyces Boulardi 250 mg Cap PO SCH ×2 (09:24→17:03)
[2017-02-22] MEDS ORDERED: Pantoprazole 40 mg EC Tab PO SCH (10:00)
[2017-02-22 10:22] LABS: BASOPHIL 1 % (0-2); METAMYELOCYTE 1 % (0-0); NEUTROPHIL 80 % (50-75); REACTIVE LYMPHOCYTES 1 % (0-0); TOTAL CELLS COUNTED 100
--- NOTE | 2017-02-22 11:43 | CP.PCM.PN ---
<Theodora Dillard - Last Filed: 02/22/17 17:59> Subjective - Date & Time of Evaluation Date of Evaluation: 02/22/17 Time of Evaluation: 11:43 - Subjective Subjective: Medicine Progress Note for Dr. Núñez Patient was seen and examined at bedside in no acute distress. Patient was calmly laying in bed and repetitively requesting to go to the bathroom. Review of systems is limited and obtained with help of son at bedside who is translating. Objective - Vital Signs/Intake and Output Vital Signs (last 24 hours): Temp Pulse Resp BP Pulse Ox 98.5 F 70 18 130/70 96 02/22/17 08:13 02/22/17 08:13 02/22/17 08:13 02/22/17 08:26 02/22/17 08:13 Intake and Output: 02/22/17 02/22/17 06:59 18:59 Intake Total 1570 Output Total 1400 Balance 170 - Medications Medications: Current Medications Acetaminophen (Tylenol 325mg Tab) 650 mg PO Q6 PRN PRN Reason: Fever >100.4 F Albuterol/Ipratropium (Duoneb 3 Mg/0.5 Mg (3 Ml) Ud) 3 ml INH RQ4 PRN PRN Reason: Shortness of Breath Last Admin: 02/22/17 11:29 Dose: 3 ml Docusate Sodium (Colace) 100 mg PO TID [facility] Last Admin: 02/22/17 09:16 Dose: 100 mg Donepezil HCl (Aricept) 5 mg PO DAILY [facility] Last Admin: 02/22/17 09:16 Dose: 5 mg Ferrous Sulfate (Feosol) 325 mg PO DAILY [facility] Last Admin: 02/22/17 09:15 Dose: 325 mg Heparin Sodium (Porcine) (Heparin) 5,000 units SC Q12 [facility] Last Admin: 02/22/17 09:18 Dose: 5,000 units Meropenem 1 gm/ Sodium (Chloride) 100 mls @ 100 mls/hr IVPB Q8H [facility] Last Admin: 02/22/17 09:24 Dose: 100 mls/hr Sodium Chloride (Sodium Chloride 0.9%) 1,000 mls @ 75 mls/hr IV .[id number] [facility] Last Admin: 02/22/17 06:26 Dose: 75 mls/hr Vancomycin/Sodium Chloride (Vancomycin 1 Gm/Ns 200 Ml) 1 gm in 200 mls @ 133.333 mls/hr IVPB Q24H [facility] Pantoprazole Sodium (Protonix Ec Tab) 40 mg PO DAILY [facility] Last Admin: 02/22/17 09:14 Dose: 40 mg Rosuvastatin Calcium (Crestor) 2.5 mg PO DAILY [facility] Last Admin: 02/22/17 09:15 Dose: 2.5 mg Saccharomyces Boulardii (Florastor) 250 mg PO BID [facility] Last Admin: 02/22/17 09:24 Dose: 250 mg - Labs Labs: 02/22/17 07:55 02/22/17 07:55 PT 12.7 SECONDS (9.7-12.2) H 02/20/17 20:38 INR 1.1 02/20/17 20:38 APTT 32 SECONDS (21-34) 02/20/17 20:38 - Additional Findings Additional findings: - Constitutional Appears: No Acute Distress, Confused - Head Exam Head Exam: ATRAUMATIC, NORMAL INSPECTION - Eye Exam Eye Exam: EOMI, Normal appearance - ENT Exam ENT Exam: Mucous Membranes Moist - Respiratory Exam Respiratory Exam: Rales (R>L), wheezes. absent: Clear to Ausculation Bilateral , Rhonchi, Respiratory Distress - Cardiovascular Exam Cardiovascular Exam: REGULAR RHYTHM, +S1, +S2 - GI/Abdominal Exam GI & Abdominal Exam: Soft, Normal Bowel Sounds. absent: Distended, Firm, Tenderness - Extremities Exam Extremities Exam: Normal Inspection - Neurological Exam Neurological Exam: Alert, Awake. absent: Oriented x3 - Psychiatric Exam Psychiatric exam: Normal Affect, Normal Mood - Skin Skin Exam: Dry, Intact, Normal Color, Warm Assessment and Plan (1) Sepsis with metabolic encephalopathy Status: Acute (2) Dementia Status: Chronic (3) HLD (hyperlipidemia) Status: Chronic (4) HTN (hypertension) Status: Chronic (5) Constipation Status: Acute (6) Wheezing Status: Acute (7) Prophylactic measure Status: Acute - Assessment and Plan (Free Text) Plan: (1) Sepsis with metabolic encephalopathy Assessment and Plan: * Likely secondary to pneumonia * Lactate: 2.4, 3.1, 3.2 * Procal: 3.19 * Bandemia: 13, improving, 5 * Ammonia: 11 * Discontinued Zosyn Q8, Rocephin 1gm Q24h and Azithromycin 500mg IV Q24 * ID consulted, Dr. De La Fuente, help appreciated * Continue Vancomycin 1gm Q24 and Meropenem 1gm Q8 * NS @75/h (decreased from 100mls/h) * CXR: no acute findings * Sputum culture: f/u * Urine culture: gram negative lavonne * Blood culture: no growth x24h * Flu A/B: negative * Monitor vitals * Echo: LV is normal size, normal wall thickness, LV function normal; LVEF normal; grade 1 abnormal relaxation patter; mild pulmonary htn * Influenza A,B: negative * UDS: negative Status: Acute (2) Dementia Assessment and Plan: * [facility] * Continue home medication: Aricept 5mg PO daily * Fall risk protocol * Swallow eval * Consider 1-to-1 * Head CT: limited study; focal low attenuation seen within right cerebellum suggestive for chronic infarct; chronic microvascular ischemic change; sinus mucosal disease Status: Chronic (3) HLD (hyperlipidemia) Assessment and Plan: * Crestor 2.5mg HS * Lipid panel: TG 115, Cholesterol 129, LDL 57, HDL 31 Status: Chronic (4) HTN (hypertension) Assessment and Plan: * Hold home meds due to low BP on admission: Losartan 50 mg QD, Isosorbide dinitrate 30mg PO BID * Monitor Status: Chronic (5) History of Hypothyroidism Assessment and Plan: * Confirmed medications with pharmacy- patient takes Levothyroxine 25mg QAM * TSH/Free T4: 0.97, 3.77 (6) Hx of Agitation Assessment and Plan: * prison history of taking Seroquel 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 Hold home medications. * Overnight, patient's personal doctor, Dr. Ji, requested the patient continue home medications, Seroquel and Klonopin * Psychiatry, Dr. Collins, was consulted (patient's personal psychiatrist) Status: Chronic (7) Constipation Assessment and Plan: * One dose of dulcolax given * Colace 100mg PO TID * Stool occult: negative (8) Wheezing Assessment and Plan: * Duonebs Q6prn * O2 via nasal cannula prn * CXR (02/22): interval worsening of right sided pneumonia with new left limited perihilar infiltrate. (9) Prophylactic measure Assessment and Plan: * Heparin * Protonix * SCDs * PT/OT * Palliative Care consulted <Raven Núñez V - Last Filed: 02/23/17 06:56> Objective - Vital Signs/Intake and Output Vital Signs (last 24 hours): Temp Pulse Resp BP Pulse Ox 98.5 F 82 20 145/97 H 97 02/22/17 23:30 02/23/17 04:01 02/22/17 23:30 02/22/17 23:30 02/22/17 23:30 Intake and Output: 02/22/17 02/23/17 18:59 06:59 Intake Total 780 Output Total 1050 Balance -270 - Medications Medications: Current Medications Acetaminophen (Tylenol 325mg Tab) 650 mg PO Q6 PRN PRN Reason: Fever >100.4 F Albuterol/Ipratropium (Duoneb 3 Mg/0.5 Mg (3 Ml) Ud) 3 ml INH RQ4 PRN PRN Reason: Shortness of Breath Last Admin: 02/22/17 11:29 Dose: 3 ml Albuterol/Ipratropium (Duoneb 3 Mg/0.5 Mg (3 Ml) Ud) 3 ml INH RQ6 [facility] Last Admin: 02/23/17 01:09 Dose: 3 ml Clonazepam (Klonopin) 1 mg PO TID PRN PRN Reason: Anxiety Last Admin: 02/22/17 22:03 Dose: 1 mg Docusate Sodium (Colace) 100 mg PO TID [facility] Last Admin: 02/22/17 17:03 Dose: 100 mg Donepezil HCl (Aricept) 5 mg PO DAILY [facility] Last Admin: 02/22/17 09:16 Dose: 5 mg Ferrous Sulfate (Feosol) 325 mg PO DAILY [facility] Last Admin: 02/22/17 09:15 Dose: 325 mg Heparin Sodium (Porcine) (Heparin) 5,000 units SC Q12 [facility] Last Admin: 02/22/17 21:58 Dose: 5,000 units Meropenem 1 gm/ Sodium (Chloride) 100 mls @ 100 mls/hr IVPB Q8H [facility] Last Admin: 02/23/17 02:36 Dose: 100 mls/hr Sodium Chloride (Sodium Chloride 0.9%) 1,000 mls @ 75 mls/hr IV .[id number] [facility] Last Admin: 02/22/17 06:26 Dose: 75 mls/hr Vancomycin/Sodium Chloride (Vancomycin 1 Gm/Ns 200 Ml) 1 gm in 200 mls @ 133.333 mls/hr IVPB Q24H [facility] Last Admin: 02/22/17 16:57 Dose: 133.333 mls/hr Pantoprazole Sodium (Protonix Ec Tab) 40 mg PO DAILY [facility] Last Admin: 02/22/17 09:14 Dose: 40 mg Quetiapine Fumarate (Seroquel) 50 mg PO QAM [facility] Quetiapine Fumarate (Seroquel) 75 mg PO HS [facility] Last Admin: 02/22/17 21:58 Dose: 75 mg Rosuvastatin Calcium (Crestor) 2.5 mg PO DAILY [facility] Last Admin: 02/22/17 09:15 Dose: 2.5 mg Saccharomyces Boulardii (Florastor) 250 mg PO BID [facility] Last Admin: 02/22/17 17:03 Dose: 250 mg - Labs Labs: 02/22/17 07:55 02/22/17 07:55 PT 12.7 SECONDS (9.7-12.2) H 02/20/17 20:38 INR 1.1 02/20/17 20:38 APTT 32 SECONDS (21-34) 02/20/17 20:38 Attending/Attestation - Attestation I have personally seen and examined this patient.: Yes I have fully participated in the care of the patient.: Yes I have reviewed all pertinent clinical information, including history, physical exam and plan: Yes Notes (Text): This is late computer entry for 02/22/17. Patient seen with resident conference interpreter who speaks Farsi but patient speaking in her dialect. Repeat chest xray completed this morning showing worsening right sided pneumonia with new left limited perihilar infiltrate now identified. IV fluids held and patient given stat Duoneb treatment and Lasix 40mg IVX1 which helped. Patient seen again during rounds, examined and case discussed with day-time resident. Patient's son, Adriano present at bedside, assisting in translation for the patient. He reports mother has been trying to get out of the bed, trying to use the bathroom. I indicated that similar circumstance happened yesterday. Discussed with nursing staff the night prior she did have a bowel movement. He reports mother is at her baseline. No change in mental status. I explained to the son, patient current has pneumonia and likely urinary tract infection given abnormal UA. Patient with hx of dementia when they have infections can be more agitated or more not like themselves because they are fighting off two infections. Patient's son was also approached by palliative care who I had discussed since patient's other son Royer cannot come because he works until 5pm but entrusts his brother for care of his mother. Patient restarted this morning on her dose of Seroquel and Klonopin. Discussed with son as well, that we held off the medications on first day because we need to see how patient was doing was reportedly very lethargic and these medications are noted to cause sedative effects and will worsen what we see in light of sepsis. Assessment/Plan (1) Sepsis Metabolic encephalopathy Assessment and Plan: * Suspected pneumonia and urinary tract infection * SIRS: febrile, tachycardia, leukocytosis, bandemia, and elevated lactate * Code sepsis called in the ED, Patient received first dose of Vanco/Zosyn and fluid boluses. Was evaluated by ICU on admission, deem stable for telemetry * Procal: 3. * Infectious Disease (Dr. De La Fuente) on the case-->help appreciated * Started Rocephin 1gm Q24h and Azithromycin 500mg IV Q24 * Changed by ID to Meropenem 1 gram IV Q8H and vancomycin 1 gram IV 24H * ID consulted, Dr. De La Fuente, help appreciated * Head CT: no acute changes * NS @75/hr * CXR: no acute findings (clinically dry) * CXRL Interval worsening of right sided pneumonia with new left limited perihilar infiltrate now identified. * Sputum culture: f/u * Urine culture: f/u * Blood culture: no growth after 24 hours X2 * Flu A/B: negative * Echo: LV is normal size, normal wall thickness, LV function normal; LVEF normal; grade 1 abnormal relaxation patter; mild pulmonary htn * Monitor on telemetry Status: Acute (2) Dementia Assessment and Plan: * Resident Confirmed [facility] . I confirmed with patient's son at bedside, taking these meds more than 25+ years. * Continue home medication: Aricept 5mg PO daily * Fall risk protocol * Swallow eval * Consider 1-to-1 * Head CT: limited study; focal low attenuation seen within right cerebellum suggestive for chronic infarct; chronic microvascular ischemic change; sinus mucosal disease * Patient takes Seroquel, Klonopin, and Ambien at home for history of agitation. Patient's Seroquel and Klonopin restarted today to prevent withdrawal. * Seizure precautions Status: Chronic (3) HLD (hyperlipidemia) Assessment and Plan: * Crestor 2.5mg HS * Lipid panel: TG 115, Cholesterol 129, LDL 57, HDL 31 Status: Chronic (4) HTN (hypertension) Assessment and Plan: * Hold home meds due to low BP on admission: Losartan 50 mg QD, Isosorbide dinitrate 30mg PO BID * on IV fluids * Monitor Status: Chronic (5) History of Hypothyroidism Assessment and Plan: * Confirmed medications with pharmacy- patient takes Levothyroxine 25mg QAM * TSH/Free T4: f/u results (6) Hx of Agitation Assessment and Plan: * prison history of taking Seroquel 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 02/21: Hold home medications. Had discussed with son prior to shift change we would hold medications given patient is being treated for infection and can cause change in mental status and that side effects of these medications also cause sedation. * 02/22: restarted Seroquel and Klonopin to prevent withdrawal symptoms; will need to monitor while patient is also in hospital being treated for sepsis Status: Chronic (7) Constipation Assessment and Plan: * One dose of dulcolax given * Colace 100mg PO TID * Patient had bowel movement, discussed with evening RNOzzy on 02/21 (8) Prophylactic measure Assessment and Plan: * Heparin 5000 units subq 8H * Protonix 40mg PO daily * SCDs * PT/OT eval * Palliative Care consulted
[2017-02-22] MEDS: Albuterol-Ipratrop 3 mg / 0.5 (3 ml) UD INH SCH ×2 (13:08→21:10)
--- NOTE | 2017-02-22 13:31 | CP.PCM.PN ---
Subjective - Date & Time of Evaluation Date of Evaluation: 02/22/17 Time of Evaluation: 10:00 - Subjective Subjective: More alert, does not offer complaints Objective - Vital Signs/Intake and Output Vital Signs (last 24 hours): Temp Pulse Resp BP Pulse Ox 98.5 F 70 18 130/70 96 02/22/17 08:13 02/22/17 08:13 02/22/17 08:13 02/22/17 08:26 02/22/17 08:13 Intake and Output: 02/22/17 02/22/17 06:59 18:59 Intake Total 1570 Output Total 1400 Balance 170 - Medications Medications: Current Medications Acetaminophen (Tylenol 325mg Tab) 650 mg PO Q6 PRN PRN Reason: Fever >100.4 F Albuterol/Ipratropium (Duoneb 3 Mg/0.5 Mg (3 Ml) Ud) 3 ml INH RQ4 PRN PRN Reason: Shortness of Breath Last Admin: 02/22/17 11:29 Dose: 3 ml Albuterol/Ipratropium (Duoneb 3 Mg/0.5 Mg (3 Ml) Ud) 3 ml INH RQ6 [facility] Last Admin: 02/22/17 13:08 Dose: Not Given Clonazepam (Klonopin) 1 mg PO TID PRN PRN Reason: Anxiety Docusate Sodium (Colace) 100 mg PO TID [facility] Last Admin: 02/22/17 09:16 Dose: 100 mg Donepezil HCl (Aricept) 5 mg PO DAILY [facility] Last Admin: 02/22/17 09:16 Dose: 5 mg Ferrous Sulfate (Feosol) 325 mg PO DAILY [facility] Last Admin: 02/22/17 09:15 Dose: 325 mg Heparin Sodium (Porcine) (Heparin) 5,000 units SC Q12 [facility] Last Admin: 02/22/17 09:18 Dose: 5,000 units Meropenem 1 gm/ Sodium (Chloride) 100 mls @ 100 mls/hr IVPB Q8H [facility] Last Admin: 02/22/17 09:24 Dose: 100 mls/hr Sodium Chloride (Sodium Chloride 0.9%) 1,000 mls @ 75 mls/hr IV .[id number] [facility] Last Admin: 02/22/17 06:26 Dose: 75 mls/hr Vancomycin/Sodium Chloride (Vancomycin 1 Gm/Ns 200 Ml) 1 gm in 200 mls @ 133.333 mls/hr IVPB Q24H [facility] Pantoprazole Sodium (Protonix Ec Tab) 40 mg PO DAILY [facility] Last Admin: 02/22/17 09:14 Dose: 40 mg Quetiapine Fumarate (Seroquel) 50 mg PO QAM [facility] Quetiapine Fumarate (Seroquel) 75 mg PO HS [facility] Rosuvastatin Calcium (Crestor) 2.5 mg PO DAILY [facility] Last Admin: 02/22/17 09:15 Dose: 2.5 mg Saccharomyces Boulardii (Florastor) 250 mg PO BID [facility] Last Admin: 02/22/17 09:24 Dose: 250 mg - Labs Labs: 02/22/17 07:55 02/22/17 07:55 PT 12.7 SECONDS (9.7-12.2) H 02/20/17 20:38 INR 1.1 02/20/17 20:38 APTT 32 SECONDS (21-34) 02/20/17 20:38 - Constitutional Appears: No Acute Distress - Head Exam Head Exam: ATRAUMATIC, NORMAL INSPECTION, NORMOCEPHALIC - Eye Exam Eye Exam: EOMI, Normal appearance, PERRL Pupil Exam: NORMAL ACCOMODATION, PERRL - ENT Exam ENT Exam: Mucous Membranes Moist, Normal Exam - Neck Exam Neck Exam: Full ROM, Normal Inspection - Respiratory Exam Respiratory Exam: Decreased Breath Sounds, NORMAL BREATHING PATTERN - Cardiovascular Exam Cardiovascular Exam: Bradycardia, REGULAR RHYTHM - GI/Abdominal Exam GI & Abdominal Exam: Soft, Normal Bowel Sounds - Rectal Exam Rectal Exam: Deferred - Extremities Exam Extremities Exam: Normal Capillary Refill, Normal Inspection, Pedal Edema - Back Exam Back Exam: NORMAL INSPECTION - Neurological Exam Neurological Exam: Alert, Altered Neuro motor strength exam: Left Upper Extremity: 2/1, Right Upper Extremity: 2/1 , Left Lower Extremity: 2/1, Right Lower Extremity: 2/1 - Psychiatric Exam Psychiatric exam: Agitated - Skin Skin Exam: Dry, Intact, Normal Color, Warm Assessment and Plan - Assessment and Plan (Free Text) Plan: Patient seen and examined in bed, less agitated and more alert than yesterday. The CXR from last night was significant for right sided pneumonia. IV antibiotics changed to Vanco and Merrem. P WBC dropped to 12.2 and band neutrophils to 5.0. The CT abdomen suggested some fecal retention at sigmoid part of the colon. No recorded BM since admission. Colace PO TID on board. No nausea noted. Tolerates small amount of food. Son Adriano at bed side. I reviewed patient's clinical presentation pointing out that patient initially was treated for sepsis and now the new findings of pneumonia and possible UTI prompted change in Tx. The son looked very worried at first , but after detailed discussion , he admitted being less concerned. Mr. Oh wishes, his mother recovers and returns home where he primarily takes care of her. 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 The need for [facility] discussed and [facility] was prefered place , as patient used to go there in the past. Code status discussed. Mr. Oh showed very limited input in the topic. I corrected his knowledge regarding the need for either Advance directive or Living Will to guide healthcare professionals in care of patient. Mr. Oh said, he was not ready to make the decision and would like to talk to his brother first. I supported his decision. Impression * Chronically ill lady with acute Pneumonia and UTI * Confusion * At risk for self injury * Needs max assistance with ADLs * Needs safety watch * Family agreed with transfer to [facility] when ready; [facility] preferred * Constipation Suggestion * Would add Senocot 2 tb at Q HS for constipation * Safety watch * Discharge planing to [facility] * Full Code as per family request
[2017-02-22] MEDS: Vancomycin 1 gm/NS 200 ml 1 GM/200 ML BAG IVPB SCH (16:57)
--- NOTE | 2017-02-22 17:20 | CP.PCM.PN ---
Subjective - Date & Time of Evaluation Date of Evaluation: 02/22/17 Time of Evaluation: 05:00 - Subjective Subjective: dictated Objective - Vital Signs/Intake and Output Vital Signs (last 24 hours): Temp Pulse Resp BP Pulse Ox 98.2 F 96 H 18 132/53 L 99 02/22/17 15:11 02/22/17 16:00 02/22/17 15:11 02/22/17 15:11 02/22/17 15:11 Intake and Output: 02/22/17 02/22/17 06:59 18:59 Intake Total 1570 Output Total 1400 Balance 170 - Medications Medications: Current Medications Acetaminophen (Tylenol 325mg Tab) 650 mg PO Q6 PRN PRN Reason: Fever >100.4 F Albuterol/Ipratropium (Duoneb 3 Mg/0.5 Mg (3 Ml) Ud) 3 ml INH RQ4 PRN PRN Reason: Shortness of Breath Last Admin: 02/22/17 11:29 Dose: 3 ml Albuterol/Ipratropium (Duoneb 3 Mg/0.5 Mg (3 Ml) Ud) 3 ml INH RQ6 [facility] Last Admin: 02/22/17 13:08 Dose: Not Given Clonazepam (Klonopin) 1 mg PO TID PRN PRN Reason: Anxiety Docusate Sodium (Colace) 100 mg PO TID [facility] Last Admin: 02/22/17 17:03 Dose: 100 mg Donepezil HCl (Aricept) 5 mg PO DAILY [facility] Last Admin: 02/22/17 09:16 Dose: 5 mg Ferrous Sulfate (Feosol) 325 mg PO DAILY [facility] Last Admin: 02/22/17 09:15 Dose: 325 mg Heparin Sodium (Porcine) (Heparin) 5,000 units SC Q12 [facility] Last Admin: 02/22/17 09:18 Dose: 5,000 units Meropenem 1 gm/ Sodium (Chloride) 100 mls @ 100 mls/hr IVPB Q8H [facility] Last Admin: 02/22/17 17:03 Dose: 100 mls/hr Sodium Chloride (Sodium Chloride 0.9%) 1,000 mls @ 75 mls/hr IV .[id number] [facility] Last Admin: 02/22/17 06:26 Dose: 75 mls/hr Vancomycin/Sodium Chloride (Vancomycin 1 Gm/Ns 200 Ml) 1 gm in 200 mls @ 133.333 mls/hr IVPB Q24H [facility] Last Admin: 02/22/17 16:57 Dose: 133.333 mls/hr Pantoprazole Sodium (Protonix Ec Tab) 40 mg PO DAILY [facility] Last Admin: 02/22/17 09:14 Dose: 40 mg Quetiapine Fumarate (Seroquel) 50 mg PO QAM [facility] Quetiapine Fumarate (Seroquel) 75 mg PO HS [facility] Rosuvastatin Calcium (Crestor) 2.5 mg PO DAILY [facility] Last Admin: 02/22/17 09:15 Dose: 2.5 mg Saccharomyces Boulardii (Florastor) 250 mg PO BID [facility] Last Admin: 02/22/17 17:03 Dose: 250 mg - Labs Labs: 02/22/17 07:55 02/22/17 07:55 PT 12.7 SECONDS (9.7-12.2) H 02/20/17 20:38 INR 1.1 02/20/17 20:38 APTT 32 SECONDS (21-34) 02/20/17 20:38
--- NOTE | 2017-02-22 22:14 | PN ---
SUBJECTIVE: She was seen yesterday. She is more awake, alert. She had CAT scans done, discussed by Dr. Tello. Also, discussed the patient with . *------*. PHYSICAL EXAMINATION: VITAL SIGNS: Earlier T-max is 98.2, pulse is 79, blood pressure 132/53, respirations are 18, saturations 99%. GENERAL: The patient is very alert now. HEENT: Head is atraumatic, normocephalic. NECK: Supple. LUNGS: Coarse breath sounds. HEART: S1 and S2 regular. ABDOMEN: Soft, nontender. No guarding, no rigidity present. EXTREMITIES: Have no edema. LABORATORY DATA: White count is 12.2, hemoglobin 9.9, hematocrit is 30.8, platelet count is 258. Her bands are now 5, neutrophils are 80 and still has lot of bandemia. Cultures; urine culture has Gram-negative rods, blood cultures are negative. We also did CAT scan of abdomen and pelvis, and abdomen and pelvis shows there is linear atelectasis of the right lateral lung and there are small pleural effusions, indwelling Yanez catheter and gallbladder distention, solitary gallstone and *------* right upper quadrant ultrasound to exclude cholecystitis, left colonic diverticulosis without evidence of diverticulitis. Chest x-ray shows interval worsening of right-sided pneumonia with new left-sided perihilar infiltrate now identified at this time. So, she does have pneumonia, could have aspirated or community acquired, but she has it bilaterally and also to do studies for pneumonia including Streptococcus pneumoniae and to continue vancomycin and meropenem at this time and will follow. The patient came in with sepsis and has pneumonia and her white count is coming down. Malick De La Fuente MD
[2017-02-23] MEDS: Albuterol-Ipratrop 3 mg / 0.5 (3 ml) UD INH SCH ×4 (01:09→19:20)
[2017-02-23] MEDS: Meropenem 1 GM in Sodium Chloride 0.9% 100 ML IVPB SCH ×2 (02:36→10:19)
--- NOTE | 2017-02-23 06:57 | CP.PCM.PN ---
Subjective - Date & Time of Evaluation Date of Evaluation: 02/23/17 Time of Evaluation: 06:57 - Subjective Subjective: Medicine Progress Note for Dr. Núñez Patient was seen and examined at bedside in no acute distress. Patient was calmly laying in bed. Review of systems is limited due to patient's condition. Objective - Vital Signs/Intake and Output Vital Signs (last 24 hours): Temp Pulse Resp BP Pulse Ox 98.5 F 82 20 145/97 H 97 02/22/17 23:30 02/23/17 04:01 02/22/17 23:30 02/22/17 23:30 02/22/17 23:30 Intake and Output: 02/22/17 02/23/17 18:59 06:59 Intake Total 780 Output Total 1050 Balance -270 - Medications Medications: Current Medications Acetaminophen (Tylenol 325mg Tab) 650 mg PO Q6 PRN PRN Reason: Fever >100.4 F Albuterol/Ipratropium (Duoneb 3 Mg/0.5 Mg (3 Ml) Ud) 3 ml INH RQ4 PRN PRN Reason: Shortness of Breath Last Admin: 02/22/17 11:29 Dose: 3 ml Albuterol/Ipratropium (Duoneb 3 Mg/0.5 Mg (3 Ml) Ud) 3 ml INH RQ6 [facility] Last Admin: 02/23/17 01:09 Dose: 3 ml Clonazepam (Klonopin) 1 mg PO TID PRN PRN Reason: Anxiety Last Admin: 02/22/17 22:03 Dose: 1 mg Docusate Sodium (Colace) 100 mg PO TID [facility] Last Admin: 02/22/17 17:03 Dose: 100 mg Donepezil HCl (Aricept) 5 mg PO DAILY [facility] Last Admin: 02/22/17 09:16 Dose: 5 mg Ferrous Sulfate (Feosol) 325 mg PO DAILY [facility] Last Admin: 02/22/17 09:15 Dose: 325 mg Heparin Sodium (Porcine) (Heparin) 5,000 units SC Q12 [facility] Last Admin: 02/22/17 21:58 Dose: 5,000 units Meropenem 1 gm/ Sodium (Chloride) 100 mls @ 100 mls/hr IVPB Q8H [facility] Last Admin: 02/23/17 02:36 Dose: 100 mls/hr Sodium Chloride (Sodium Chloride 0.9%) 1,000 mls @ 75 mls/hr IV .[id number] [facility] Last Admin: 02/22/17 06:26 Dose: 75 mls/hr Vancomycin/Sodium Chloride (Vancomycin 1 Gm/Ns 200 Ml) 1 gm in 200 mls @ 133.333 mls/hr IVPB Q24H [facility] Last Admin: 02/22/17 16:57 Dose: 133.333 mls/hr Pantoprazole Sodium (Protonix Ec Tab) 40 mg PO DAILY [facility] Last Admin: 02/22/17 09:14 Dose: 40 mg Quetiapine Fumarate (Seroquel) 50 mg PO QAM [facility] Quetiapine Fumarate (Seroquel) 75 mg PO HS [facility] Last Admin: 02/22/17 21:58 Dose: 75 mg Rosuvastatin Calcium (Crestor) 2.5 mg PO DAILY [facility] Last Admin: 02/22/17 09:15 Dose: 2.5 mg Saccharomyces Boulardii (Florastor) 250 mg PO BID [facility] Last Admin: 02/22/17 17:03 Dose: 250 mg - Labs Labs: 02/22/17 07:55 02/22/17 07:55 PT 12.7 SECONDS (9.7-12.2) H 02/20/17 20:38 INR 1.1 02/20/17 20:38 APTT 32 SECONDS (21-34) 02/20/17 20:38 - Additional Findings Additional findings: - Constitutional Appears: No Acute Distress, Confused - Head Exam Head Exam: ATRAUMATIC, NORMAL INSPECTION - Eye Exam Eye Exam: EOMI, Normal appearance - ENT Exam ENT Exam: Mucous Membranes Moist - Respiratory Exam Respiratory Exam: Rales (R>L), wheezes (improving). absent: Clear to Ausculation Bilateral, Rhonchi, Respiratory Distress - Cardiovascular Exam Cardiovascular Exam: REGULAR RHYTHM, +S1, +S2 - GI/Abdominal Exam GI & Abdominal Exam: Soft, Normal Bowel Sounds. absent: Distended, Firm, Tenderness - Extremities Exam Extremities Exam: Normal Inspection - Neurological Exam Neurological Exam: Alert, Awake. absent: Oriented x3 - Psychiatric Exam Psychiatric exam: Normal Affect - Skin Skin Exam: Dry, Intact, Normal Color, Warm Assessment and Plan (1) Sepsis with metabolic encephalopathy Status: Acute (2) Dementia Status: Chronic (3) HLD (hyperlipidemia) Status: Chronic (4) HTN (hypertension) Status: Chronic (5) Constipation Status: Acute (6) Wheezing Status: Acute (7) Prophylactic measure Status: Acute - Assessment and Plan (Free Text) Plan: (1) Sepsis with metabolic encephalopathy Assessment and Plan: * Likely secondary to pneumonia and/or UTI * Lactate: 2.4, 3.1, 3.2 * Procal: 3.19 * Bandemia: 13, improving, 5 * Ammonia: 11 * Discontinued Zosyn Q8, Rocephin 1gm Q24h and Azithromycin 500mg IV Q24 * ID consulted, Dr. De La Fuente, help appreciated * Continue Vancomycin 1gm Q24 and Meropenem 1gm Q8 * NS @75/h (decreased from 100mls/h) * CXR: no acute findings * Sputum culture: f/u * Urine culture: gram negative lavonne--> Ecoli, sensitive to meropenem (resistant only to cipro) * Blood culture: no growth x48h * Flu A/B: negative * Monitor vitals * Echo: LV is normal size, normal wall thickness, LV function normal; LVEF normal; grade 1 abnormal relaxation patter; mild pulmonary htn * Influenza A,B: negative * UDS: negative Status: Acute (2) Dementia Assessment and Plan: * Conf[facility] * Continue home medication: Aricept 5mg PO daily * Fall risk protocol * Swallow eval * Consider 1-to-1 * Head CT: limited study; focal low attenuation seen within right cerebellum suggestive for chronic infarct; chronic microvascular ischemic change; sinus mucosal disease Status: Chronic (3) HLD (hyperlipidemia) Assessment and Plan: * Crestor 2.5mg HS * Lipid panel: TG 115, Cholesterol 129, LDL 57, HDL 31 Status: Chronic (4) HTN (hypertension) Assessment and Plan: * Hold home meds due to low BP on admission: Losartan 50 mg QD, Isosorbide dinitrate 30mg PO BID * Monitor Status: Chronic (5) History of Hypothyroidism Assessment and Plan: * Confirmed medications with pharmacy- patient takes Levothyroxine 25mg QAM * TSH/Free T4: 0.97, 3.77 (6) Hx of Agitation Assessment and Plan: * 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 * Overnight on 02/22, patient's personal doctor, Dr. Ji, requested the patient continue home medications, Seroquel and Klonopin * Psychiatry, Dr. Collins, was consulted (patient's personal psychiatrist) * 02/23: Seroquel and Klonopin held to assess patient's mental status; patient is currently calm and not agitated Status: Chronic (7) Constipation Assessment and Plan: * One dose of dulcolax given * Colace 100mg PO TID * Stool occult: negative (8) Wheezing Assessment and Plan: * Duonebs Q6 [facility]aitlin * O2 via nasal cannula prn * CXR (02/22): interval worsening of right sided pneumonia with new left limited perihilar infiltrate. (9) Prophylactic measure Assessment and Plan: * Heparin * Protonix * SCDs * PT/OT * Palliative Care consulted * MOUSTAPHA Yanez
[2017-02-23 07:26] LABS: BASO % 0.3 % (0.0-2.0); EOS % 0.5 % (0.0-4.0); HEMATOCRIT 30.2 % (34.0-47.0); LYMPH # 1.3 K/uL (1.0-4.3); MEAN CELL VOLUME 88.1 fL (81.0-99.0); MEAN CORPUSCULAR HEMOGLOBIN 29.5 pg (27.0-31.0); MEAN CORPUSCULAR HGB CONC 33.5 g/dL (33.0-37.0); MEAN PLATELET VOLUME 7.6 fL (7.2-11.7); MONO # 0.4 K/uL (0.0-0.8); MONO % 4.2 % (0.0-10.0); RED CELL DISTRIBUTION WIDTH 16.4 % (11.5-14.5); WHITE BLOOD COUNT 8.5 K/uL (4.8-10.8)
[2017-02-23 08:17] LABS: ALB/GLOB RATIO 1.2 (1.0-2.1); ALKALINE PHOSPHATASE 99 U/L (38-126); ALT/SGPT 40 U/L (9-52); AST/SGOT 47 U/L (14-36); BILIRUBIN,TOTAL 0.5 mg/dL (0.2-1.3); BLOOD UREA NITROGEN 11 mg/dL (7-17); CALCIUM 8.2 mg/dl (8.6-10.4); CARBON DIOXIDE 29 mmol/L (22-30); CHLORIDE 107 mmol/L (98-107); GFR AFRICAN-AMERICAN > 60; GLUCOSE,RANDOM 101 mg/dL (65-105); MAGNESIUM 1.7 mg/dL (1.6-2.3); PHOSPHOROUS 2.4 mg/dL (2.5-4.5); POTASSIUM 3.3 mmol/L (3.6-5.2); SODIUM 144 mmol/L (132-148); TOTAL PROTEIN 5.9 g/dL (6.3-8.3)
[2017-02-23] MEDS ORDERED: Influenza Vaccine 60 mcg/0.5 mL SYR (4YR UP) IM ONE ×2 (10:00)
[2017-02-23] MEDS: Pantoprazole 40 mg EC Tab PO SCH (10:05)
[2017-02-23] MEDS: Saccharomyces Boulardi 250 mg Cap PO SCH ×2 (10:16→19:28)
[2017-02-23] MEDS: Rosuvastatin Calcium 2.5 mg Tab PO SCH (10:16)
[2017-02-23 11:03] LABS: ARTERIAL BLOOD HGB O2 SAT 95.8 % (95.0-98.0); DRAW SITE RB; METHEMOGLOBIN 1.1 % (0.0-3.0)
--- NOTE | 2017-02-23 16:46 | CP.PCM.PN ---
Subjective - Date & Time of Evaluation Date of Evaluation: 02/23/17 Time of Evaluation: 03:45 - Subjective Subjective: dictated Objective - Vital Signs/Intake and Output Vital Signs (last 24 hours): Temp Pulse Resp BP Pulse Ox 99.0 F 80 18 137/73 96 02/23/17 15:12 02/23/17 15:12 02/23/17 15:12 02/23/17 15:12 02/23/17 15:12 Intake and Output: 02/23/17 02/23/17 06:59 18:59 Intake Total 780 Output Total 1050 Balance -270 - Medications Medications: Current Medications Acetaminophen (Tylenol 325mg Tab) 650 mg PO Q6 PRN PRN Reason: Fever >100.4 F Albuterol/Ipratropium (Duoneb 3 Mg/0.5 Mg (3 Ml) Ud) 3 ml INH RQ4 PRN PRN Reason: Shortness of Breath Last Admin: 02/22/17 11:29 Dose: 3 ml Albuterol/Ipratropium (Duoneb 3 Mg/0.5 Mg (3 Ml) Ud) 3 ml INH RQ6 [facility] Last Admin: 02/23/17 13:20 Dose: 3 ml Clonazepam (Klonopin) 1 mg PO TID PRN PRN Reason: Anxiety Last Admin: 02/22/17 22:03 Dose: 1 mg Docusate Sodium (Colace) 100 mg PO TID [facility] Last Admin: 02/23/17 14:51 Dose: 100 mg Donepezil HCl (Aricept) 5 mg PO DAILY [facility] Last Admin: 02/23/17 10:32 Dose: Not Given Ferrous Sulfate (Feosol) 325 mg PO DAILY [facility] Last Admin: 02/23/17 10:17 Dose: 325 mg Heparin Sodium (Porcine) (Heparin) 5,000 units SC Q12 [facility] Last Admin: 02/23/17 10:04 Dose: 5,000 units Sodium Chloride (Sodium Chloride 0.9%) 1,000 mls @ 75 mls/hr IV .[id number] [facility] Last Admin: 02/22/17 06:26 Dose: 75 mls/hr Vancomycin/Sodium Chloride (Vancomycin 1 Gm/Ns 200 Ml) 1 gm in 200 mls @ 133.333 mls/hr IVPB Q24H [facility] Last Admin: 02/22/17 16:57 Dose: 133.333 mls/hr Cefepime HCl 1 gm/ Dextrose 50 mls @ 100 mls/hr IVPB Q12H [facility] Pantoprazole Sodium (Protonix Ec Tab) 40 mg PO DAILY [facility] Last Admin: 02/23/17 10:05 Dose: 40 mg Quetiapine Fumarate (Seroquel) 50 mg PO QAM [facility] Last Admin: 02/23/17 10:03 Dose: Not Given Quetiapine Fumarate (Seroquel) 75 mg PO HS [facility] Last Admin: 02/22/17 21:58 Dose: 75 mg Rosuvastatin Calcium (Crestor) 2.5 mg PO DAILY [facility] Last Admin: 02/23/17 10:16 Dose: 2.5 mg Saccharomyces Boulardii (Florastor) 250 mg PO BID [facility] Last Admin: 02/23/17 10:16 Dose: 250 mg - Labs Labs: 02/23/17 07:07 02/23/17 07:07 PT 12.7 SECONDS (9.7-12.2) H 02/20/17 20:38 INR 1.1 02/20/17 20:38 APTT 32 SECONDS (21-34) 02/20/17 20:38
[2017-02-23] MEDS: Vancomycin 1 gm/NS 200 ml 1 GM/200 ML BAG IVPB SCH (17:00)
[2017-02-23] MEDS: Cefepime IV 1 gm in Dextrose 1 GM/50 ML BAG IVPB SCH (18:35)
[2017-02-24] MEDS: Albuterol-Ipratrop 3 mg / 0.5 (3 ml) UD INH SCH ×4 (01:12→19:27)
[2017-02-24] MEDS: Cefepime IV 1 gm in Dextrose 1 GM/50 ML BAG IVPB SCH ×2 (05:30→16:58)
[2017-02-24 07:31] LABS: BASO % 0.3 % (0.0-2.0); EOS # 0.1 K/uL (0.0-0.7); EOS % 0.8 % (0.0-4.0); HEMATOCRIT 31.1 % (34.0-47.0); LYMPH # 1.1 K/uL (1.0-4.3); LYMPH % 15.2 % (20.0-40.0); MEAN CORPUSCULAR HEMOGLOBIN 29.2 pg (27.0-31.0); MEAN CORPUSCULAR HGB CONC 33.2 g/dL (33.0-37.0); MEAN PLATELET VOLUME 7.8 fL (7.2-11.7); MONO # 0.4 K/uL (0.0-0.8); MONO % 5.4 % (0.0-10.0); NRBC % 0.1 % (0.0-2.0); RED CELL DISTRIBUTION WIDTH 15.9 % (11.5-14.5); WHITE BLOOD COUNT 7.3 K/uL (4.8-10.8)
[2017-02-24 07:54] LABS: ALKALINE PHOSPHATASE 91 U/L (38-126); ALT/SGPT 39 U/L (9-52); AST/SGOT 41 U/L (14-36); BILIRUBIN,TOTAL 0.4 mg/dL (0.2-1.3); BLOOD UREA NITROGEN 12 mg/dL (7-17); CALCIUM 8.6 mg/dl (8.6-10.4); CARBON DIOXIDE 30 mmol/L (22-30); CHLORIDE 106 mmol/L (98-107); GFR AFRICAN-AMERICAN > 60; GLUCOSE,RANDOM 108 mg/dL (65-105); MAGNESIUM 1.7 mg/dL (1.6-2.3); PHOSPHOROUS 2.6 mg/dL (2.5-4.5); POTASSIUM 3.9 mmol/L (3.6-5.2); SODIUM 142 mmol/L (132-148); TOTAL PROTEIN 5.9 g/dL (6.3-8.3)
[2017-02-24 08:26] LABS: ALB/GLOB RATIO 1.2 (1.0-2.1)
[2017-02-24] MEDS: Rosuvastatin Calcium 2.5 mg Tab PO SCH (09:57)
[2017-02-24] MEDS: Pantoprazole 40 mg EC Tab PO SCH (09:57)
[2017-02-24] MEDS: Saccharomyces Boulardi 250 mg Cap PO SCH ×2 (10:12→18:23)
--- NOTE | 2017-02-24 12:47 | PN ---
SUBJECTIVE: The patient is awake, alert and has . PHYSICAL EXAMINATION: NECK: Supple. LUNGS: Decreased breath sounds bilaterally. HEART: S1 and S2, is regular. ABDOMEN: Soft, nontender. No guarding. No rigidity present. EXTREMITIES: There is no edema. LABORATORY DATA: Labs show white count is 8.5, hemoglobin 10.1, and the white count is better. ASSESSMENT AND PLAN: We will repeat an x-ray tomorrow. She does have urine problem with Escherichia coli. She also has pneumonia, so we will continue with vancomycin and Maxipime at this time, and we will follow, and so she has trouble in stool. She came in with sepsis, and we will need to make sure that the x-ray is improving and she received treatment for the urine culture. We will follow. Malick De La Fuente MD
--- NOTE | 2017-02-24 16:43 | CP.PCM.PN ---
Subjective - Date & Time of Evaluation Date of Evaluation: 02/24/17 Time of Evaluation: 16:41 - Subjective Subjective: Progress Note for Dr. Núñez Patient seen lethargic in the morning, upon return with attending, patient was agitated and wanted to get out of the bed. Unable to obtain ROS due to language barrier. Son translates for mother via phone. Objective - Vital Signs/Intake and Output Vital Signs (last 24 hours): Temp Pulse Resp BP Pulse Ox 97.7 F 72 18 148/82 96 02/24/17 07:00 02/24/17 07:52 02/24/17 07:00 02/24/17 07:00 02/24/17 07:00 Intake and Output: 02/24/17 02/24/17 06:59 18:59 Intake Total 450 530 Balance 450 530 - Medications Medications: Current Medications Acetaminophen (Tylenol 325mg Tab) 650 mg PO Q6 PRN PRN Reason: Fever >100.4 F Albuterol/Ipratropium (Duoneb 3 Mg/0.5 Mg (3 Ml) Ud) 3 ml INH RQ4 PRN PRN Reason: Shortness of Breath Last Admin: 02/22/17 11:29 Dose: 3 ml Albuterol/Ipratropium (Duoneb 3 Mg/0.5 Mg (3 Ml) Ud) 3 ml INH RQ6 [facility] Last Admin: 02/24/17 14:35 Dose: 3 ml Clonazepam (Klonopin) 1 mg PO Q8H [facility] Docusate Sodium (Colace) 100 mg PO TID [facility] Last Admin: 02/24/17 09:57 Dose: 100 mg Donepezil HCl (Aricept) 5 mg PO HS [facility] Last Admin: 02/23/17 23:20 Dose: 5 mg Ferrous Sulfate (Feosol) 325 mg PO DAILY [facility] Last Admin: 02/24/17 09:57 Dose: 325 mg Sodium Chloride (Sodium Chloride 0.9%) 1,000 mls @ 75 mls/hr IV .[id number] [facility] Last Admin: 02/22/17 06:26 Dose: 75 mls/hr Vancomycin/Sodium Chloride (Vancomycin 1 Gm/Ns 200 Ml) 1 gm in 200 mls @ 133.333 mls/hr IVPB Q24H [facility] Last Admin: 02/23/17 17:00 Dose: 133.333 mls/hr Cefepime HCl (Maxipime Iv 1 Gm Premix) 1 gm in 50 mls @ 100 mls/hr IVPB Q12H [facility] Last Admin: 02/24/17 05:30 Dose: 100 mls/hr Pantoprazole Sodium (Protonix Ec Tab) 40 mg PO DAILY [facility] Last Admin: 02/24/17 09:57 Dose: 40 mg Quetiapine Fumarate (Seroquel) 50 mg PO DAILY [facility] Quetiapine Fumarate (Seroquel) 75 mg PO HS [facility] Rosuvastatin Calcium (Crestor) 2.5 mg PO DAILY [facility] Last Admin: 02/24/17 09:57 Dose: 2.5 mg Saccharomyces Boulardii (Florastor) 250 mg PO BID [facility] Last Admin: 02/24/17 10:12 Dose: 250 mg - Labs Labs: 02/24/17 07:18 02/24/17 07:18 PT 12.7 SECONDS (9.7-12.2) H 02/20/17 20:38 INR 1.1 02/20/17 20:38 APTT 32 SECONDS (21-34) 02/20/17 20:38 - Constitutional Appears: Non-toxic, No Acute Distress - Head Exam Head Exam: ATRAUMATIC, NORMAL INSPECTION, NORMOCEPHALIC - Eye Exam Eye Exam: EOMI, Normal appearance - ENT Exam ENT Exam: Mucous Membranes Moist. absent: Mucous Membranes Dry - Neck Exam Neck Exam: Full ROM. absent: Tenderness, Thyromegaly - Respiratory Exam Respiratory Exam: NORMAL BREATHING PATTERN. absent: Decreased Breath Sounds, Respiratory Distress - Cardiovascular Exam Cardiovascular Exam: REGULAR RHYTHM, +S1, +S2 - GI/Abdominal Exam GI & Abdominal Exam: Soft. absent: Tenderness - Extremities Exam Extremities Exam: Full ROM. absent: Pedal Edema - Neurological Exam Neurological Exam: Awake - Psychiatric Exam Psychiatric exam: Normal Affect, Normal Mood - Skin Skin Exam: Dry, Intact, Pallor, Warm Assessment and Plan - Assessment and Plan (Free Text) Assessment: (1) Sepsis with metabolic encephalopathy Assessment and Plan: * Likely secondary to pneumonia and/or UTI * Lactate: 2.4, 3.1, 3.2 * Procal: 3.19 * Bandemia: 13, improving, 5 * Ammonia: 11 * Discontinued Zosyn Q8, Rocephin 1gm Q24h and Azithromycin 500mg IV Q24 * ID consulted, Dr. De La Fuente, help appreciated * Continue Vancomycin 1gm Q24 and Meropenem 1gm Q8 * NS @75/h (decreased from 100mls/h) * CXR: no acute findings * Sputum culture: f/u * Urine culture: gram negative lavonne--> Ecoli, sensitive to meropenem (resistant only to cipro) * Blood culture: no growth x48h * Flu A/B: negative * Monitor vitals * Echo: LV is normal size, normal wall thickness, LV function normal; LVEF normal; grade 1 abnormal relaxation patter; mild pulmonary htn * Influenza A,B: negative * UDS: negative Status: Acute (2) Dementia Assessment and Plan: * Confirmed home meds with [facility] * Continue home medication: Aricept 5mg PO daily * Fall risk protocol * Swallow eval * Consider 1-to-1 * Head CT: limited study; focal low attenuation seen within right cerebellum suggestive for chronic infarct; chronic microvascular ischemic change; sinus mucosal disease Status: Chronic (3) HLD (hyperlipidemia) Assessment and Plan: * Crestor 2.5mg HS * Lipid panel: TG 115, Cholesterol 129, LDL 57, HDL 31 Status: Chronic (4) HTN (hypertension) Assessment and Plan: * Hold home meds due to low BP on admission: Losartan 50 mg QD, Isosorbide dinitrate 30mg PO BID * Monitor Status: Chronic (5) History of Hypothyroidism Assessment and Plan: * Confirmed medications with pharmacy- patient takes Levothyroxine 25mg QAM * TSH/Free T4: 0.97, 3.77 (6) Hx of Agitation Assessment and Plan: * 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 * Overnight on 02/22, patient's personal doctor, Dr. Ji, requested the patient continue home medications, Seroquel and Klonopin * Psychiatry, Dr. Collins, was consulted (patient's personal psychiatrist) * 02/23: Seroquel and Klonopin held to assess patient's mental status; patient is currently calm and not agitated * Klonopin 1mg POQ8H * Seroquel 50mg POQD * Seroquel 75mg POQHS Status: Chronic (7) Constipation Assessment and Plan: * One dose of dulcolax given * Colace 100mg PO TID * Stool occult: negative (8) Wheezing Assessment and Plan: * Duonebs Q6 caitlin * O2 via nasal cannula prn * CXR (02/22): interval worsening of right sided pneumonia with new left limited perihilar infiltrate. (9) Prophylactic measure Assessment and Plan: * Heparin * Protonix * SCDs * PT/OT * Palliative Care consulted * MOUSTAPHA Yanez
[2017-02-24] MEDS: Vancomycin 1 gm/NS 200 ml 1 GM/200 ML BAG IVPB SCH (18:07)
--- NOTE | 2017-02-24 22:18 | CP.PCM.PN ---
Subjective - Date & Time of Evaluation Date of Evaluation: 02/24/17 Time of Evaluation: 03:00 - Subjective Subjective: dictated Objective - Vital Signs/Intake and Output Vital Signs (last 24 hours): Temp Pulse Resp BP Pulse Ox 97.4 F L 71 18 99/61 L 100 02/24/17 15:20 02/24/17 15:30 02/24/17 15:20 02/24/17 15:20 02/24/17 15:20 Intake and Output: 02/24/17 02/25/17 18:59 06:59 Intake Total 530 Balance 530 - Medications Medications: Current Medications Acetaminophen (Tylenol 325mg Tab) 650 mg PO Q6 PRN PRN Reason: Fever >100.4 F Albuterol/Ipratropium (Duoneb 3 Mg/0.5 Mg (3 Ml) Ud) 3 ml INH RQ4 PRN PRN Reason: Shortness of Breath Last Admin: 02/22/17 11:29 Dose: 3 ml Albuterol/Ipratropium (Duoneb 3 Mg/0.5 Mg (3 Ml) Ud) 3 ml INH RQ6 [facility] Last Admin: 02/24/17 19:27 Dose: 3 ml Clonazepam (Klonopin) 1 mg PO Q8H [facility] Docusate Sodium (Colace) 100 mg PO TID [facility] Last Admin: 02/24/17 18:23 Dose: Not Given Donepezil HCl (Aricept) 5 mg PO HS [facility] Last Admin: 02/24/17 21:52 Dose: 5 mg Ferrous Sulfate (Feosol) 325 mg PO DAILY [facility] Last Admin: 02/24/17 09:57 Dose: 325 mg Sodium Chloride (Sodium Chloride 0.9%) 1,000 mls @ 75 mls/hr IV .[id number] [facility] Last Admin: 02/22/17 06:26 Dose: 75 mls/hr Vancomycin/Sodium Chloride (Vancomycin 1 Gm/Ns 200 Ml) 1 gm in 200 mls @ 133.333 mls/hr IVPB Q24H [facility] Last Admin: 02/24/17 18:07 Dose: 133.333 mls/hr Cefepime HCl (Maxipime Iv 1 Gm Premix) 1 gm in 50 mls @ 100 mls/hr IVPB Q12H [facility] Last Admin: 02/24/17 16:58 Dose: 100 mls/hr Pantoprazole Sodium (Protonix Ec Tab) 40 mg PO DAILY [facility] Last Admin: 02/24/17 09:57 Dose: 40 mg Quetiapine Fumarate (Seroquel) 50 mg PO DAILY [facility] Quetiapine Fumarate (Seroquel) 75 mg PO HS [facility] Last Admin: 02/24/17 21:57 Dose: Not Given Rosuvastatin Calcium (Crestor) 2.5 mg PO DAILY [facility] Last Admin: 02/24/17 09:57 Dose: 2.5 mg Saccharomyces Boulardii (Florastor) 250 mg PO BID [facility] Last Admin: 02/24/17 18:23 Dose: Not Given - Labs Labs: 02/24/17 07:18 02/24/17 07:18 PT 12.7 SECONDS (9.7-12.2) H 02/20/17 20:38 INR 1.1 02/20/17 20:38 APTT 32 SECONDS (21-34) 02/20/17 20:38
[2017-02-24] MEDS ORDERED: Meropenem 500 MG in Sodium Chloride 0.9% 100 ML IVPB SCH (22:30)
[2017-02-24] MEDS: MEROPENEM 500 MG in NS 500 MG/50 ML BAG IV SCH (22:53)
[2017-02-25] MEDS: Albuterol-Ipratrop 3 mg / 0.5 (3 ml) UD INH SCH ×4 (01:21→19:20)
--- NOTE | 2017-02-25 01:43 | PN ---
DATE: SUBJECTIVE: The patient was drowsy. She was hypotensive, and then they repeated the blood pressure and it looked better at that time when they got the low blood pressure. She was very drowsy, but she appeared to in no acute respiratory distress, had oxygen on. PHYSICAL EXAMINATION: NECK: Supple. LUNGS: Clear. HEART: S1, S2 is regular. ABDOMEN: Soft, nontender. No guarding. No rigidity present. EXTREMITIES: Have no edema. LABORATORY DATA: White count is 7.3, hemoglobin 10.3, hematocrit is 31.1, platelet count 270. Chemistry and Microbiology-jackson, she had urine culture, which has E. coli. She also has pneumonia and we did a chest x-ray on 02/22/2017, which was showing interval worsening of pneumonia on the left side, and at this time, the patient is being dropping blood pressure, the etiology of which is unclear. I want to make sure she is getting cefepime 1 g q. 12 hours and she is on vancomycin 1 g daily, and we will follow, and if she remains that drowsy, maybe it is advised to check ABG, I will get a Pulmonary evaluation. Malick De La Fuente MD
[2017-02-25] MEDS: MEROPENEM 500 MG in NS 500 MG/50 ML BAG IV SCH ×3 (06:26→22:27)
[2017-02-25] MEDS: Rosuvastatin Calcium 2.5 mg Tab PO SCH (09:40)
[2017-02-25] MEDS: Pantoprazole 40 mg EC Tab PO SCH (09:40)
[2017-02-25] MEDS: Saccharomyces Boulardi 250 mg Cap PO SCH ×2 (09:40→17:16)
--- NOTE | 2017-02-25 10:40 | CP.PCM.PN ---
Subjective - Date & Time of Evaluation Date of Evaluation: 02/25/17 Time of Evaluation: 09:00 - Subjective Subjective: Medicine Note for Hospitalist Service - Dr. Núñez Patient was seen and examined at bedside. As per nursing, patient is more alert , last BM with this morning small amount. Unable to obtain ROS due to language barrier. Son translates for mother via phone. Objective - Vital Signs/Intake and Output Vital Signs (last 24 hours): Temp Pulse Resp BP Pulse Ox 98.0 F 69 18 128/62 98 02/25/17 09:14 02/25/17 09:14 02/25/17 09:14 02/25/17 09:14 02/25/17 09:14 - Medications Medications: Current Medications Acetaminophen (Tylenol 325mg Tab) 650 mg PO Q6 PRN PRN Reason: Pain, Mild (1-3) Last Admin: 02/24/17 22:26 Dose: 650 mg Albuterol/Ipratropium (Duoneb 3 Mg/0.5 Mg (3 Ml) Ud) 3 ml INH RQ4 PRN PRN Reason: Shortness of Breath Last Admin: 02/22/17 11:29 Dose: 3 ml Albuterol/Ipratropium (Duoneb 3 Mg/0.5 Mg (3 Ml) Ud) 3 ml INH RQ6 [facility] Last Admin: 02/25/17 07:20 Dose: 3 ml Clonazepam (Klonopin) 1 mg PO Q8H [facility] Docusate Sodium (Colace) 100 mg PO TID [facility] Last Admin: 02/25/17 09:40 Dose: 100 mg Donepezil HCl (Aricept) 5 mg PO HS [facility] Last Admin: 02/24/17 21:52 Dose: 5 mg Ferrous Sulfate (Feosol) 325 mg PO DAILY [facility] Last Admin: 02/25/17 09:40 Dose: 325 mg Sodium Chloride (Sodium Chloride 0.9%) 1,000 mls @ 75 mls/hr IV .[id number] [facility] Last Admin: 02/22/17 06:26 Dose: 75 mls/hr Vancomycin/Sodium Chloride (Vancomycin 1 Gm/Ns 200 Ml) 1 gm in 200 mls @ 133.333 mls/hr IVPB Q24H [facility] Last Admin: 02/24/17 18:07 Dose: 133.333 mls/hr Meropenem/Sodium Chloride (Merrem Iv 500 Mg/Ns 50 Ml) 500 mg in 50 mls @ 100 mls/hr IV Q8H [facility] Last Admin: 02/25/17 06:26 Dose: 100 mls/hr Pantoprazole Sodium (Protonix Ec Tab) 40 mg PO DAILY [facility] Last Admin: 02/25/17 09:40 Dose: 40 mg Quetiapine Fumarate (Seroquel) 50 mg PO DAILY [facility] Last Admin: 02/25/17 09:41 Dose: 50 mg Quetiapine Fumarate (Seroquel) 75 mg PO HS [facility] Last Admin: 02/24/17 21:57 Dose: Not Given Rosuvastatin Calcium (Crestor) 2.5 mg PO DAILY [facility] Last Admin: 02/25/17 09:40 Dose: 2.5 mg Saccharomyces Boulardii (Florastor) 250 mg PO BID [facility] Last Admin: 02/25/17 09:40 Dose: 250 mg - Labs Labs: 02/24/17 07:18 02/24/17 07:18 PT 12.7 SECONDS (9.7-12.2) H 02/20/17 20:38 INR 1.1 02/20/17 20:38 APTT 32 SECONDS (21-34) 02/20/17 20:38 - Additional Findings Additional findings: - Head Exam Head Exam: ATRAUMATIC, NORMAL INSPECTION, NORMOCEPHALIC - Eye Exam Eye Exam: EOMI, Normal appearance - ENT Exam ENT Exam: Mucous Membranes Moist. absent: Mucous Membranes Dry - Neck Exam Neck Exam: Full ROM. absent: Tenderness, Thyromegaly - Respiratory Exam Respiratory Exam: NORMAL BREATHING PATTERN. absent: Decreased Breath Sounds, Respiratory Distress - Cardiovascular Exam Cardiovascular Exam: REGULAR RHYTHM, +S1, +S2 - GI/Abdominal Exam GI & Abdominal Exam: Soft. absent: Tenderness - Extremities Exam Extremities Exam: Full ROM. absent: Pedal Edema - Neurological Exam Neurological Exam: Awake - Psychiatric Exam Psychiatric exam: Normal Affect, Normal Mood - Skin Skin Exam: Dry, Intact, Pallor, Warm Assessment and Plan - Assessment and Plan (Free Text) Plan: (1) Sepsis with metabolic encephalopathy Assessment and Plan: * ID consulted, Dr. De La Fuente, help appreciated * Likely secondary to pneumonia and/or UTI * Lactate: 2.4, 3.1, 3.2 * Procal: 3.19 * Bandemia: 13, improving, 5 * Ammonia: 11 * CXR: no acute findings * Sputum culture: * Urine culture: gram negative lavonne--> Ecoli, sensitive to meropenem (resistant only to cipro) * Blood culture: no growth x48h * Flu A/B: negative * Echo: LV is normal size, normal wall thickness, LV function normal; LVEF normal; grade 1 abnormal relaxation patter; mild pulmonary htn * Influenza A,B: negative * UDS: negative * F/U UA, UC, pro-fernando * Discontinued Zosyn Q8, Rocephin 1gm Q24h and Azithromycin 500mg IV Q24 * Continue Vancomycin 1gm Q24 and Meropenem 1gm Q8 * NS @75/h (decreased from 100mls/h) (2) Dementia Assessment and Plan: * Confirmed [facility]s with [facility] * Continue home medication: Aricept 5mg PO daily * Fall risk protocol * Swallow eval * Consider 1-to-1 * Head CT: limited study; focal low attenuation seen within right cerebellum suggestive for chronic infarct; chronic microvascular ischemic change; sinus mucosal disease (3) HLD (hyperlipidemia) Assessment and Plan: * Crestor 2.5mg HS * Lipid panel: TG 115, Cholesterol 129, LDL 57, HDL 31 (4) HTN (hypertension) Assessment and Plan: * Hold home meds due to low BP on admission: Losartan 50 mg QD, Isosorbide dinitrate 30mg PO BID * Monitor (5) History of Hypothyroidism Assessment and Plan: * Confirmed medications with pharmacy- patient takes Levothyroxine 25mg QAM * TSH/Free T4: 0.97, 3.77 (6) Hx of Agitation 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 * Overnight on 02/22, patient's personal doctor, Dr. Ji, requested the patient continue home medications, Seroquel and Klonopin * Psychiatry, Dr. Collins, was consulted (patient's personal psychiatrist) * 02/23: Seroquel and Klonopin held to assess patient's mental status; patient is currently calm and not agitated * Klonopin 1mg POQ8H * Seroquel 50mg POQD * Seroquel 75mg POQHS (7) Constipation Assessment and Plan: * One dose of dulcolax given * Colace 100mg PO TID * Stool occult: negative * lactulose x 1 (8) Wheezing Assessment and Plan: * Duonebs Q6 caitlin * O2 via nasal cannula prn * CXR (02/22): interval worsening of right sided pneumonia with new left limited perihilar infiltrate. (9) Prophylactic measure Assessment and Plan: * Heparin * Protonix * SCDs * PT/OT * Palliative Care consulted * DC Beau Núñez, Deyvi WHITNEY, PGY-1
[2017-02-25 10:45] LABS: BASO % 0.5 % (0.0-2.0); EOS # 0.2 K/uL (0.0-0.7); EOS % 2.7 % (0.0-4.0); HEMATOCRIT 29.8 % (34.0-47.0); LYMPH # 1.2 K/uL (1.0-4.3); LYMPH % 18.9 % (20.0-40.0); MEAN CELL VOLUME 88.1 fL (81.0-99.0); MEAN CORPUSCULAR HEMOGLOBIN 29.6 pg (27.0-31.0); MEAN CORPUSCULAR HGB CONC 33.6 g/dL (33.0-37.0); MEAN PLATELET VOLUME 7.5 fL (7.2-11.7); MONO # 0.4 K/uL (0.0-0.8); NRBC % 0.1 % (0.0-2.0); RED CELL DISTRIBUTION WIDTH 15.9 % (11.5-14.5); WHITE BLOOD COUNT 6.4 K/uL (4.8-10.8)
[2017-02-25 11:20] LABS: ALB/GLOB RATIO 1.2 (1.0-2.1); ALKALINE PHOSPHATASE 76 U/L (38-126); ALT/SGPT 35 U/L (9-52); AST/SGOT 28 U/L (14-36); BILIRUBIN,TOTAL 0.4 mg/dL (0.2-1.3); BLOOD UREA NITROGEN 12 mg/dL (7-17); CALCIUM 8.6 mg/dl (8.6-10.4); CARBON DIOXIDE 30 mmol/L (22-30); CHLORIDE 105 mmol/L (98-107); GFR AFRICAN-AMERICAN > 60; GLUCOSE,RANDOM 109 mg/dL (65-105); MAGNESIUM 1.7 mg/dL (1.6-2.3); PHOSPHOROUS 3.3 mg/dL (2.5-4.5); POTASSIUM 3.7 mmol/L (3.6-5.2); SODIUM 142 mmol/L (132-148); TOTAL PROTEIN 5.9 g/dL (6.3-8.3)
[2017-02-25 12:03] LABS: RBC URINE 1 /hpf (0-3); URINE BILIRUBIN NEGATIVE (NEGATIVE); URINE BLOOD NEGATIVE (NEGATIVE); URINE COLOR Yellow (YELLOW); URINE GLUCOSE (UA) NORMAL (Normal); URINE KETONE TRACE mg/dL (NEGATIVE); URINE LEUKOCYTE ESTERASE 1+ Leu/uL (Negative); URINE PROTEIN NEGATIVE (NEGATIVE); URINE UROBILINOGEN NORMAL mg/dL (0.2-1.0); WBC URINE 1 /hpf (0-5)
[2017-02-25] MEDS: Vancomycin 1 gm/NS 200 ml 1 GM/200 ML BAG IVPB SCH (17:53)
[2017-02-26] MEDS: Albuterol-Ipratrop 3 mg / 0.5 (3 ml) UD INH SCH ×4 (01:49→19:30)
[2017-02-26] MEDS: MEROPENEM 500 MG in NS 500 MG/50 ML BAG IV SCH ×2 (06:01→15:27)
--- NOTE | 2017-02-26 08:38 | CP.PCM.PN ---
Subjective - Date & Time of Evaluation Date of Evaluation: 02/26/17 Time of Evaluation: 08:00 - Subjective Subjective: Medicine Note for Hospitalist Service - Dr. Núñez Patient was seen and examined at bedside. As per nursing, no bowel movement. Unable to obtain ROS due to language barrier. Son translates for mother via phone. Objective - Vital Signs/Intake and Output Vital Signs (last 24 hours): Temp Pulse Resp BP Pulse Ox 98.5 F 78 20 125/55 L 96 02/25/17 23:00 02/25/17 23:31 02/25/17 23:00 02/25/17 23:00 02/25/17 23:00 - Medications Medications: Current Medications Acetaminophen (Tylenol 325mg Tab) 650 mg PO Q6 PRN PRN Reason: Headache Albuterol/Ipratropium (Duoneb 3 Mg/0.5 Mg (3 Ml) Ud) 3 ml INH RQ4 PRN PRN Reason: Shortness of Breath Last Admin: 02/22/17 11:29 Dose: 3 ml Albuterol/Ipratropium (Duoneb 3 Mg/0.5 Mg (3 Ml) Ud) 3 ml INH RQ6 [facility] Last Admin: 02/26/17 01:49 Dose: 3 ml Clonazepam (Klonopin) 1 mg PO Q8H [facility] Docusate Sodium (Colace) 100 mg PO TID [facility] Last Admin: 02/25/17 17:15 Dose: 100 mg Donepezil HCl (Aricept) 5 mg PO HS [facility] Last Admin: 02/25/17 21:33 Dose: 5 mg Ferrous Sulfate (Feosol) 325 mg PO DAILY [facility] Last Admin: 02/25/17 09:40 Dose: 325 mg Sodium Chloride (Sodium Chloride 0.9%) 1,000 mls @ 75 mls/hr IV .[id number] [facility] Last Admin: 02/22/17 06:26 Dose: 75 mls/hr Vancomycin/Sodium Chloride (Vancomycin 1 Gm/Ns 200 Ml) 1 gm in 200 mls @ 133.333 mls/hr IVPB Q24H [facility] Last Admin: 02/25/17 17:53 Dose: 133.333 mls/hr Meropenem/Sodium Chloride (Merrem Iv 500 Mg/Ns 50 Ml) 500 mg in 50 mls @ 100 mls/hr IV Q8H [facility] Last Admin: 02/26/17 06:01 Dose: 100 mls/hr Pantoprazole Sodium (Protonix Ec Tab) 40 mg PO DAILY [facility] Last Admin: 02/25/17 09:40 Dose: 40 mg Quetiapine Fumarate (Seroquel) 50 mg PO DAILY [facility] Last Admin: 02/25/17 09:41 Dose: 50 mg Quetiapine Fumarate (Seroquel) 75 mg PO HS [facility] Last Admin: 02/25/17 21:33 Dose: 75 mg Rosuvastatin Calcium (Crestor) 2.5 mg PO DAILY [facility] Last Admin: 02/25/17 09:40 Dose: 2.5 mg Saccharomyces Boulardii (Florastor) 250 mg PO BID [facility] Last Admin: 02/25/17 17:16 Dose: 250 mg - Labs Labs: 02/25/17 10:39 02/25/17 10:39 PT 12.7 SECONDS (9.7-12.2) H 02/20/17 20:38 INR 1.1 02/20/17 20:38 APTT 32 SECONDS (21-34) 02/20/17 20:38 - Additional Findings Additional findings: - Head Exam Head Exam: ATRAUMATIC, NORMAL INSPECTION, NORMOCEPHALIC - Eye Exam Eye Exam: EOMI, Normal appearance - ENT Exam ENT Exam: Mucous Membranes Moist. absent: Mucous Membranes Dry - Neck Exam Neck Exam: Full ROM. absent: Tenderness, Thyromegaly - Respiratory Exam Respiratory Exam: NORMAL BREATHING PATTERN. absent: Decreased Breath Sounds, Respiratory Distress - Cardiovascular Exam Cardiovascular Exam: REGULAR RHYTHM, +S1, +S2 - GI/Abdominal Exam GI & Abdominal Exam: Soft. absent: Tenderness - Extremities Exam Extremities Exam: Full ROM. absent: Pedal Edema - Neurological Exam Neurological Exam: Awake - Psychiatric Exam Psychiatric exam: Normal Affect, Normal Mood - Skin Skin Exam: Dry, Intact, Pallor, Warm Assessment and Plan - Assessment and Plan (Free Text) Plan: Sepsis with metabolic encephalopathy Assessment and Plan: * ID consulted, Dr. De La Fuente, help appreciated * Likely secondary to pneumonia and/or UTI * Lactate: 2.4, 3.1, 3.2 * Procal: 3.19 * Bandemia: 13, improving, 5 * Ammonia: 11 * CXR: no acute findings * Sputum culture: * Urine culture: gram negative lavonne--> Ecoli, sensitive to meropenem (resistant only to cipro) * Blood culture: no growth x48h * Flu A/B: negative * Echo: LV is normal size, normal wall thickness, LV function normal; LVEF normal; grade 1 abnormal relaxation patter; mild pulmonary htn * Influenza A,B: negative * UDS: negative * UA - shows + 1 LE * F/U UC, f/u pro-fernando * Discontinued Zosyn Q8, Rocephin 1gm Q24h and Azithromycin 500mg IV Q24 * Continue Vancomycin 1gm Q24 and Meropenem 1gm Q8 Pneumonia Assessment and Plan: * Pulmonology consult - Dr. Shanks- help appreciated * Duonebs Q6 caitlin * O2 via nasal cannula prn * CXR (02/22): interval worsening of right sided pneumonia with new left limited perihilar infiltrate. * F/U Chest CT Urinary Tract Infection Assessment and Plan: * Urine culture: gram negative lavonne--> Ecoli, sensitive to meropenem (resistant only to cipro) * Blood culture: no growth x48h * UA - shows + 1 LE * F/U UC, f/u pro-fernando * Vancomycin 1gm Q24 and Meropenem 1gm Q8 Constipation Assessment and Plan: * One dose of dulcolax given * Colace 100mg PO TID * Stool occult: negative * lactulose x 1 - 2nd dose today Dementia Assessment and Plan: * Confirmed home meds with [facility] * Continue home medication: Aricept 5mg PO daily * Fall risk protocol * Swallow eval * Consider 1-to-1 * Head CT: limited study; focal low attenuation seen within right cerebellum suggestive for chronic infarct; chronic microvascular ischemic change; sinus mucosal disease HLD (hyperlipidemia) Assessment and Plan: * Crestor 2.5mg HS * Lipid panel: TG 115, Cholesterol 129, LDL 57, HDL 31 HTN (hypertension) Assessment and Plan: * Hold home meds due to low BP on admission: Losartan 50 mg QD, Isosorbide dinitrate 30mg PO BID * Monitor History of Hypothyroidism Assessment and Plan: * Confirmed medications with pharmacy- patient takes Levothyroxine 25mg QAM * TSH/Free T4: 0.97, 3.77 Hx of Agitation Assessment and Plan: * 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 * Overnight on 02/22, patient's personal doctor, Dr. Ji, requested the patient continue home medications, Seroquel and Klonopin * Psychiatry, Dr. Collins, was consulted (patient's personal psychiatrist) * 02/23: Seroquel and Klonopin held to assess patient's mental status; patient is currently calm and not agitated * Klonopin 1mg POQ8H * Seroquel 50mg POQD * Seroquel 75mg POQHS Prophylactic measure Assessment and Plan: * Heparin * Protonix * SCDs * PT/OT- [facility] * Palliative Care consulted * MOUSTAPHA Beau Son: [phone] Disposition: Need to determine duration of IV abx to determine if she will need PICC line. Will need to speak to case about [facility] placement. LISANDRO Núñez, Deyvi WHITNEY, PGY-1
[2017-02-26 09:42] LABS: BASO % 0.6 % (0.0-2.0); EOS # 0.3 K/uL (0.0-0.7); EOS % 4.3 % (0.0-4.0); HEMATOCRIT 31.4 % (34.0-47.0); LYMPH # 1.6 K/uL (1.0-4.3); LYMPH % 21.9 % (20.0-40.0); MEAN CELL VOLUME 89.9 fL (81.0-99.0); MEAN CORPUSCULAR HEMOGLOBIN 29.4 pg (27.0-31.0); MEAN CORPUSCULAR HGB CONC 32.7 g/dL (33.0-37.0); MEAN PLATELET VOLUME 7.8 fL (7.2-11.7); MONO # 0.5 K/uL (0.0-0.8); MONO % 6.7 % (0.0-10.0); RED CELL DISTRIBUTION WIDTH 15.9 % (11.5-14.5); WHITE BLOOD COUNT 7.3 K/uL (4.8-10.8)
--- NOTE | 2017-02-26 10:22 | CT ---
PROCEDURE: CT Chest without contrast HISTORY: pneumonia COMPARISON: No prior CT of the chest available for comparison. The patient had CT of the abdomen and pelvis including the lung bases at 02/21/2017 TECHNIQUE: Contiguous axial images were obtained through the chest without intravenous contrast enhancement. Sagittal and coronal reconstructions were performed. Radiation dose (DLP): 576.14 mGy-cm. This CT exam was performed using one or more of the following dose reduction techniques: Automated exposure control, adjustment of the mA and/or kV according to patient size, and/or use of iterative reconstruction technique. FINDINGS: LUNGS: There is linear opacity at the jump posterior portion of the right lung upper lobe along the fissure may represent residual pneumonia or atelectasis. There is airspace consolidation at the right lung base associated with adjacent mild bronchiectasis may represent pneumonia or atelectasis. No evidence of active disease in the left lung. Bilateral mild central bronchiectasis is also noted. MEDIASTINUM: Unremarkable thoracic aorta. No aneurysm. the heart is mildly enlarged. Main pulmonary artery unremarkable. No vascular congestion. Mildly enlarged precarinal lymph node is noted measures 1.5 centimeter. PLEURA: Small right pleural effusion is noted. Trace left pleural effusion versus pleural thickening noted. BONES: No fracture. No destructive lesion. Degenerative changes noted at the upper thoracic spine UPPER ABDOMEN: Grossly unremarkable. OTHER FINDINGS: None. IMPRESSION: Small linear opacity along the fissure at the posterior aspect of the right lung upper lobe may represent residual pneumonia or atelectasis. Airspace consolidation at the L right lung base associated with mild bronchiectasis may represent aspiration pneumonia or atelectasis. Small right pleural effusion.
[2017-02-26 10:23] LABS: ALB/GLOB RATIO 1.3 (1.0-2.1); ALKALINE PHOSPHATASE 79 U/L (38-126); ALT/SGPT 38 U/L (9-52); AST/SGOT 25 U/L (14-36); BILIRUBIN,TOTAL 0.4 mg/dL (0.2-1.3); BLOOD UREA NITROGEN 13 mg/dL (7-17); CALCIUM 8.5 mg/dl (8.6-10.4); CARBON DIOXIDE 34 mmol/L (22-30); CHLORIDE 103 mmol/L (98-107); GFR AFRICAN-AMERICAN > 60; GLUCOSE,RANDOM 93 mg/dL (65-105); MAGNESIUM 1.8 mg/dL (1.6-2.3); PHOSPHOROUS 4.4 mg/dL (2.5-4.5); POTASSIUM 3.5 mmol/L (3.6-5.2); SODIUM 145 mmol/L (132-148); TOTAL PROTEIN 6.1 g/dL (6.3-8.3)
[2017-02-26] MEDS: Rosuvastatin Calcium 2.5 mg Tab PO SCH (10:36)
[2017-02-26] MEDS: Saccharomyces Boulardi 250 mg Cap PO SCH ×2 (10:36→17:35)
[2017-02-26] MEDS: Pantoprazole 40 mg EC Tab PO SCH (10:37)
[2017-02-26] MEDS ORDERED: Potassium Chloride 20 mEq ER Tab PO ONE (11:00)
[2017-02-26] MEDS ORDERED: Potassium Chloride 20 mEq/15 ml LIQ UD PO ONE (11:40)
[2017-02-26] MEDS: Vancomycin 1 gm/NS 200 ml 1 GM/200 ML BAG IVPB SCH (17:34)
[2017-02-26] MEDS: Meropenem 500 MG in Sodium Chloride 0.9% 100 ML IVPB SCH (23:55)
[2017-02-27] MEDS: Albuterol-Ipratrop 3 mg / 0.5 (3 ml) UD INH SCH ×5 (01:44→20:23)
[2017-02-27] MEDS: Meropenem 500 MG in Sodium Chloride 0.9% 100 ML IVPB SCH ×3 (06:00→22:27)
--- NOTE | 2017-02-27 07:11 | CP.PCM.PN ---
<Theodora Dillard - Last Filed: 02/27/17 17:16> Subjective - Date & Time of Evaluation Date of Evaluation: 02/27/17 Time of Evaluation: 07:11 - Subjective Subjective: Medicine Progress Note for Dr. Gay Patient was seen and examined at bedside. Patient is lethargic, but responsive to painful stimuli. Unable to obtain ROS due to language barrier. Son translates for mother via phone. Objective - Vital Signs/Intake and Output Vital Signs (last 24 hours): Temp Pulse Resp BP Pulse Ox 98.1 F 79 20 146/89 96 02/26/17 23:05 02/27/17 01:51 02/26/17 23:05 02/26/17 23:05 02/26/17 23:05 - Medications Medications: Current Medications Acetaminophen (Tylenol 325mg Tab) 650 mg PO Q6 PRN PRN Reason: Headache Last Admin: 02/26/17 20:46 Dose: 650 mg Albuterol/Ipratropium (Duoneb 3 Mg/0.5 Mg (3 Ml) Ud) 3 ml INH RQ4 PRN PRN Reason: Shortness of Breath Last Admin: 02/22/17 11:29 Dose: 3 ml Albuterol/Ipratropium (Duoneb 3 Mg/0.5 Mg (3 Ml) Ud) 3 ml INH RQ6 [facility] Last Admin: 02/27/17 01:44 Dose: Not Given Clonazepam (Klonopin) 1 mg PO Q8H [facility] Docusate Sodium (Colace) 100 mg PO TID [facility] Last Admin: 02/26/17 18:10 Dose: Not Given Donepezil HCl (Aricept) 5 mg PO HS [facility] Last Admin: 02/26/17 21:06 Dose: 5 mg Ferrous Sulfate (Feosol) 325 mg PO DAILY [facility] Last Admin: 02/26/17 10:37 Dose: 325 mg Vancomycin/Sodium Chloride (Vancomycin 1 Gm/Ns 200 Ml) 1 gm in 200 mls @ 133.333 mls/hr IVPB Q24H [facility] Last Admin: 02/26/17 17:34 Dose: 133.333 mls/hr Meropenem 500 mg/ Sodium (Chloride) 100 mls @ 100 mls/hr IVPB Q8H [facility] Last Admin: 02/27/17 06:00 Dose: 100 mls/hr Pantoprazole Sodium (Protonix Ec Tab) 40 mg PO DAILY [facility] Last Admin: 02/26/17 10:37 Dose: 40 mg Quetiapine Fumarate (Seroquel) 50 mg PO DAILY [facility] Last Admin: 02/26/17 10:37 Dose: 50 mg Quetiapine Fumarate (Seroquel) 75 mg PO HS [facility] Last Admin: 02/26/17 21:06 Dose: 75 mg Rosuvastatin Calcium (Crestor) 2.5 mg PO DAILY [facility] Last Admin: 02/26/17 10:36 Dose: 2.5 mg Saccharomyces Boulardii (Florastor) 250 mg PO BID [facility] Last Admin: 02/26/17 17:35 Dose: 250 mg - Labs Labs: 02/26/17 09:37 02/26/17 09:37 PT 12.7 SECONDS (9.7-12.2) H 02/20/17 20:38 INR 1.1 02/20/17 20:38 APTT 32 SECONDS (21-34) 02/20/17 20:38 - Additional Findings Additional findings: - Constitutional Appears: No Acute Distress - Head Exam Head Exam: ATRAUMATIC, NORMAL INSPECTION - Eye Exam Eye Exam: Normal appearance - ENT Exam ENT Exam: Mucous Membranes Moist - Respiratory Exam Respiratory Exam: NORMAL BREATHING PATTERN. absent: Clear to Ausculation Bilateral, Rhonchi, Respiratory Distress - Cardiovascular Exam Cardiovascular Exam: REGULAR RHYTHM, +S1, +S2 - GI/Abdominal Exam GI & Abdominal Exam: Soft, Normal Bowel Sounds. absent: Distended, Firm, Tenderness - Extremities Exam Extremities Exam: Normal Inspection - Neurological Exam Neurological Exam: Alert, Awake. absent: Oriented x3 - Psychiatric Exam Psychiatric exam: Normal Affect - Skin Skin Exam: Dry, Intact, Normal Color, Warm Assessment and Plan (1) Sepsis with metabolic encephalopathy Status: Acute (2) Dementia Status: Chronic (3) HLD (hyperlipidemia) Status: Chronic (4) HTN (hypertension) Status: Chronic (5) Constipation Status: Acute (6) Wheezing Status: Acute (7) Prophylactic measure Status: Acute - Assessment and Plan (Free Text) Plan: Assessment and Plan Sepsis with metabolic encephalopathy Assessment and Plan: * ID consulted, Dr. De La Fuente, help appreciated * Likely secondary to pneumonia and/or UTI * Lactate: 2.4, 3.1, 3.2 * Procal: 3.19 * Bandemia: 13, improving, 5 * Ammonia: 11 * CXR: no acute findings * Sputum culture: * Urine culture: gram negative lavonne--> Ecoli, sensitive to meropenem (resistant only to cipro) * Blood culture: no growth x48h * Flu A/B: negative * Echo: LV is normal size, normal wall thickness, LV function normal; LVEF normal; grade 1 abnormal relaxation patter; mild pulmonary htn * Influenza A,B: negative * UDS: negative * UA - shows + 1 LE * UA: + 1 LE * Urine cx: no growth * Pro-fernando: 0.70 * Discontinued Zosyn Q8, Rocephin 1gm Q24h and Azithromycin 500mg IV Q24 * Continue Vancomycin 1gm Q24 and Meropenem 1gm Q8 Pneumonia Assessment and Plan: * Pulmonology consult - Dr. Shanks- help appreciated * Duonebs Q6 [facility]aitlin * O2 via nasal cannula prn * CXR (02/22): interval worsening of right sided pneumonia with new left limited perihilar infiltrate. * Chest CT: small linera opacity along fissure at posterior aspect of right upper lobe may represent residual pneumonia or atelectasis; airspace consolidation at the left right lung base associated with mild bronchiectasis may represent aspiration pneumonia or atelectasis. small right pleural effusion. Urinary Tract Infection Assessment and Plan: * Urine culture: gram negative lavonne--> Ecoli, sensitive to meropenem (resistant only to cipro) * Blood culture: no growth x48h * UA: + 1 LE * Urine cx: no growth * Pro-fernando: 0.70 * Continue Vancomycin 1gm Q24 and Meropenem 1gm Q8 Constipation Assessment and Plan: * One dose of dulcolax given * Colace 100mg PO TID * Stool occult: negative * lactulose--> patient had diarrhea overnight Dementia Assessment and Plan: * [facility] * Continue home medication: Aricept 5mg PO daily * Fall risk protocol * Swallow eval * Consider 1-to-1 * Head CT: limited study; focal low attenuation seen within right cerebellum suggestive for chronic infarct; chronic microvascular ischemic change; sinus mucosal disease HLD (hyperlipidemia) Assessment and Plan: * Crestor 2.5mg HS * Lipid panel: TG 115, Cholesterol 129, LDL 57, HDL 31 HTN (hypertension) Assessment and Plan: * Hold home meds due to low BP on admission: Losartan 50 mg QD, Isosorbide dinitrate 30mg PO BID * Monitor History of Hypothyroidism Assessment and Plan: * Confirmed medications with pharmacy- patient takes Levothyroxine 25mg QAM * TSH/Free T4: 0.97, 3.77 Hx of Agitation Assessment and Plan: * 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 * Overnight on 02/22, patient's personal doctor, Dr. Ji, requested the patient continue home medications, Seroquel and Klonopin * Psychiatry, Dr. Collins, was consulted (patient's personal psychiatrist) * 02/23: Seroquel and Klonopin held to assess patient's mental status; patient is currently calm and not agitated * Klonopin 1mg POQ8H * Seroquel 50mg POQD * Seroquel 75mg POQHS Prophylactic measure Assessment and Plan: * Heparin * Protonix * SCDs * PT/OT * Palliative Care consulted * MOUSTAPHA Beau Son: [phone] Disposition: Spoke with son- dose not want patient to go to [facility]. <Oseas Gay - Last Filed: 02/27/17 19:31> Objective - Vital Signs/Intake and Output Vital Signs (last 24 hours): Temp Pulse Resp BP Pulse Ox 99.0 F 97 H 20 113/74 94 L 02/27/17 16:00 02/27/17 16:00 02/27/17 16:00 02/27/17 16:00 02/27/17 16:00 - Medications Medications: Current Medications Acetaminophen (Tylenol 325mg Tab) 650 mg PO Q6 PRN PRN Reason: Headache Last Admin: 02/27/17 17:18 Dose: 650 mg Albuterol/Ipratropium (Duoneb 3 Mg/0.5 Mg (3 Ml) Ud) 3 ml INH RQ4 PRN PRN Reason: Shortness of Breath Last Admin: 02/22/17 11:29 Dose: 3 ml Albuterol/Ipratropium (Duoneb 3 Mg/0.5 Mg (3 Ml) Ud) 3 ml INH RQ6 [facility] Last Admin: 02/27/17 14:13 Dose: 3 ml Clonazepam (Klonopin) 1 mg PO Q8H [facility] Docusate Sodium (Colace) 100 mg PO TID [facility] Last Admin: 02/27/17 17:18 Dose: 100 mg Donepezil HCl (Aricept) 5 mg PO HS [facility] Last Admin: 02/26/17 21:06 Dose: 5 mg Ferrous Sulfate (Feosol) 325 mg PO DAILY [facility] Last Admin: 02/27/17 14:47 Dose: 325 mg Heparin Sodium (Porcine) (Heparin) 5,000 units SC Q8 [facility] Last Admin: 02/27/17 14:48 Dose: 5,000 units Vancomycin/Sodium Chloride (Vancomycin 1 Gm/Ns 200 Ml) 1 gm in 200 mls @ 133.333 mls/hr IVPB Q24H [facility] Last Admin: 02/27/17 17:21 Dose: 133.333 mls/hr Meropenem 500 mg/ Sodium (Chloride) 100 mls @ 100 mls/hr IVPB Q8H [facility] Last Admin: 02/27/17 14:48 Dose: 100 mls/hr Pantoprazole Sodium (Protonix Ec Tab) 40 mg PO DAILY [facility] Last Admin: 02/27/17 09:26 Dose: 40 mg Quetiapine Fumarate (Seroquel) 50 mg PO DAILY [facility] Last Admin: 02/27/17 09:27 Dose: 50 mg Quetiapine Fumarate (Seroquel) 75 mg PO HS [facility] Last Admin: 02/26/17 21:06 Dose: 75 mg Rosuvastatin Calcium (Crestor) 2.5 mg PO DAILY [facility] Last Admin: 02/27/17 09:27 Dose: 2.5 mg Saccharomyces Boulardii (Florastor) 250 mg PO BID [facility] Last Admin: 02/27/17 17:16 Dose: 250 mg - Labs Labs: 02/27/17 07:19 02/27/17 07:19 PT 12.7 SECONDS (9.7-12.2) H 02/20/17 20:38 INR 1.1 02/20/17 20:38 APTT 32 SECONDS (21-34) 02/20/17 20:38 Attending/Attestation - Attestation I have personally seen and examined this patient.: Yes I have fully participated in the care of the patient.: Yes I have reviewed all pertinent clinical information, including history, physical exam and plan: Yes Notes (Text): 02/27/17 19:19 Patient was seen and examined at 1:30 PM 661 A. Exam, Assessment and Plan were thoroughly gone over with the resident. Attempt was made to call Son via phone (as translation services for patient's micronesian dialect not available) Mr. Gurrola [phone] and [phone], however there was no answer ROS not possible secondary to language barrier but patient nodded NO to pain in chest, difficulty breathing, pain in the abdomen. I spoke with the RACK CLEANER who was caring for patient, and she revealed that patient had a small soft bowel movement earlier this morning. Also on Exam: Patient was NOT lethargic at the time of my exam. She was fully awake, in distress, and participating in exam HEENT, Cardio, Respiratory, GI, Ext, CN exams were unremarkable. Assessments: 1). Sepsis Secondary to E. coli UTI and Right Pneumonia Repeat Urine Culture 02/25/17 showed NO growth Blood Culture 02/20/17 is negative at 5 days Chest X Ray 02/22/[address] Chest 02/26/17 showed Right Upper Lobe and Right Lung Base pneumonia Meropenem 500 mg IV Q8H (02/24/17) and Vancomycin 1 gm IV Q24H (02/22/17) 2). Dementia Klonopin, Aricept, Seroquel 3). Hx HLD Crestor 4). Hx HTN HOLDING home meds of Isosorbide Dinatrate and Cozaar as blood pressure is controlled 5). Hx Hypothyroidism Levothyroxine 6). Hx Agitation Dr. Collins follows patient as an outpatient 7). Hx Constipation Colace 100 mg PO TID Had small soft bowel movement this morning after Lactulose 20 gm 02/26/17 8). Prophylaxis Acetaminophen, Duoneb PRN, Ferrous Sulfate, Protonix, Florastor Disposition: will speak with ID Dr. De La Fuente for PO Antibiotic recommendation and length of antibiotic treatment and cleared from ID standpoint will discharge patient 02/28/17. Oseas Gay D.O.
[2017-02-27 07:33] LABS: BASO # 0.1 K/uL (0.0-0.2); BASO % 0.6 % (0.0-2.0); EOS # 0.3 K/uL (0.0-0.7); EOS % 3.1 % (0.0-4.0); LYMPH # 1.9 K/uL (1.0-4.3); LYMPH % 22.5 % (20.0-40.0); MEAN CORPUSCULAR HEMOGLOBIN 29.1 pg (27.0-31.0); MEAN CORPUSCULAR HGB CONC 32.7 g/dL (33.0-37.0); MEAN PLATELET VOLUME 7.7 fL (7.2-11.7); MONO # 0.7 K/uL (0.0-0.8); RED CELL DISTRIBUTION WIDTH 15.7 % (11.5-14.5); WHITE BLOOD COUNT 8.6 K/uL (4.8-10.8)
[2017-02-27 08:47] LABS: ALKALINE PHOSPHATASE 78 U/L (38-126); ALT/SGPT 32 U/L (9-52); AST/SGOT 24 U/L (14-36); BILIRUBIN,TOTAL 0.4 mg/dL (0.2-1.3); BLOOD UREA NITROGEN 13 mg/dL (7-17); CALCIUM 8.7 mg/dl (8.6-10.4); CARBON DIOXIDE 31 mmol/L (22-30); CHLORIDE 104 mmol/L (98-107); GFR AFRICAN-AMERICAN > 60; GLUCOSE,RANDOM 95 mg/dL (65-105); MAGNESIUM 1.8 mg/dL (1.6-2.3); PHOSPHOROUS 4.1 mg/dL (2.5-4.5); SODIUM 140 mmol/L (132-148); TOTAL PROTEIN 5.9 g/dL (6.3-8.3)
[2017-02-27 08:52] LABS: ALB/GLOB RATIO 1.3 (1.0-2.1)
[2017-02-27] MEDS: Pantoprazole 40 mg EC Tab PO SCH (09:26)
[2017-02-27] MEDS: Saccharomyces Boulardi 250 mg Cap PO SCH ×2 (09:27→17:16)
[2017-02-27] MEDS: Rosuvastatin Calcium 2.5 mg Tab PO SCH (09:27)
[2017-02-27 16:11] VITALS: RESP 20
[2017-02-27] MEDS: Vancomycin 1 gm/NS 200 ml 1 GM/200 ML BAG IVPB SCH (17:21)
--- NOTE | 2017-02-27 19:46 | CP.PCM.PN ---
Subjective - Date & Time of Evaluation Date of Evaluation: 02/27/17 Time of Evaluation: 03:30 - Subjective Subjective: dictated Objective - Vital Signs/Intake and Output Vital Signs (last 24 hours): Temp Pulse Resp BP Pulse Ox 99.0 F 97 H 20 113/74 94 L 02/27/17 16:00 02/27/17 16:00 02/27/17 16:00 02/27/17 16:00 02/27/17 16:00 - Medications Medications: Current Medications Acetaminophen (Tylenol 325mg Tab) 650 mg PO Q6 PRN PRN Reason: Headache Last Admin: 02/27/17 17:18 Dose: 650 mg Albuterol/Ipratropium (Duoneb 3 Mg/0.5 Mg (3 Ml) Ud) 3 ml INH RQ4 PRN PRN Reason: Shortness of Breath Last Admin: 02/22/17 11:29 Dose: 3 ml Albuterol/Ipratropium (Duoneb 3 Mg/0.5 Mg (3 Ml) Ud) 3 ml INH RQ6 [facility] Last Admin: 02/27/17 14:13 Dose: 3 ml Clonazepam (Klonopin) 1 mg PO Q8H [facility] Docusate Sodium (Colace) 100 mg PO TID [facility] Last Admin: 02/27/17 17:18 Dose: 100 mg Donepezil HCl (Aricept) 5 mg PO HS [facility] Last Admin: 02/26/17 21:06 Dose: 5 mg Ferrous Sulfate (Feosol) 325 mg PO DAILY [facility] Last Admin: 02/27/17 14:47 Dose: 325 mg Heparin Sodium (Porcine) (Heparin) 5,000 units SC Q8 [facility] Last Admin: 02/27/17 14:48 Dose: 5,000 units Vancomycin/Sodium Chloride (Vancomycin 1 Gm/Ns 200 Ml) 1 gm in 200 mls @ 133.333 mls/hr IVPB Q24H [facility] Last Admin: 02/27/17 17:21 Dose: 133.333 mls/hr Meropenem 500 mg/ Sodium (Chloride) 100 mls @ 100 mls/hr IVPB Q8H [facility] Last Admin: 02/27/17 14:48 Dose: 100 mls/hr Levothyroxine Sodium (Synthroid) 25 mcg PO DAILY@0630 [facility] Pantoprazole Sodium (Protonix Ec Tab) 40 mg PO DAILY [facility] Last Admin: 02/27/17 09:26 Dose: 40 mg Quetiapine Fumarate (Seroquel) 50 mg PO DAILY [facility] Last Admin: 02/27/17 09:27 Dose: 50 mg Quetiapine Fumarate (Seroquel) 75 mg PO HS [facility] Last Admin: 02/26/17 21:06 Dose: 75 mg Rosuvastatin Calcium (Crestor) 2.5 mg PO DAILY [facility] Last Admin: 02/27/17 09:27 Dose: 2.5 mg Saccharomyces Boulardii (Florastor) 250 mg PO BID [facility] Last Admin: 02/27/17 17:16 Dose: 250 mg - Labs Labs: 02/27/17 07:19 02/27/17 07:19 PT 12.7 SECONDS (9.7-12.2) H 02/20/17 20:38 INR 1.1 02/20/17 20:38 APTT 32 SECONDS (21-34) 02/20/17 20:38
[2017-02-28] MEDS: Albuterol-Ipratrop 3 mg / 0.5 (3 ml) UD INH SCH ×3 (01:13→13:25)
[2017-02-28] MEDS: Meropenem 500 MG in Sodium Chloride 0.9% 100 ML IVPB SCH ×2 (06:26→14:13)
[2017-02-28] MEDS ORDERED: Levothyroxine 25 MCG TAB PO SCH (06:30)
[2017-02-28 08:14] LABS: BASO % 0.6 % (0.0-2.0); EOS # 0.2 K/uL (0.0-0.7); EOS % 3.1 % (0.0-4.0); HEMATOCRIT 33.1 % (34.0-47.0); LYMPH # 1.5 K/uL (1.0-4.3); LYMPH % 19.8 % (20.0-40.0); MEAN CELL VOLUME 89.3 fL (81.0-99.0); MEAN CORPUSCULAR HEMOGLOBIN 29.2 pg (27.0-31.0); MEAN CORPUSCULAR HGB CONC 32.7 g/dL (33.0-37.0); MEAN PLATELET VOLUME 7.9 fL (7.2-11.7); MONO # 0.6 K/uL (0.0-0.8); MONO % 7.2 % (0.0-10.0); RED CELL DISTRIBUTION WIDTH 15.9 % (11.5-14.5); WHITE BLOOD COUNT 7.7 K/uL (4.8-10.8)
[2017-02-28 08:39] LABS: ALKALINE PHOSPHATASE 92 U/L (38-126); ALT/SGPT 38 U/L (9-52); AST/SGOT 28 U/L (14-36); BILIRUBIN,TOTAL 0.5 mg/dL (0.2-1.3); BLOOD UREA NITROGEN 13 mg/dL (7-17); CALCIUM 8.8 mg/dl (8.6-10.4); CARBON DIOXIDE 31 mmol/L (22-30); CHLORIDE 100 mmol/L (98-107); GFR AFRICAN-AMERICAN > 60; GLUCOSE,RANDOM 102 mg/dL (65-105); MAGNESIUM 1.7 mg/dL (1.6-2.3); PHOSPHOROUS 3.8 mg/dL (2.5-4.5); SODIUM 141 mmol/L (132-148); TOTAL PROTEIN 7.4 g/dL (6.3-8.3)
[2017-02-28] MEDS: Saccharomyces Boulardi 250 mg Cap PO SCH ×2 (10:12→17:32)
[2017-02-28] MEDS: Pantoprazole 40 mg EC Tab PO SCH (10:13)
[2017-02-28] MEDS: Rosuvastatin Calcium 2.5 mg Tab PO SCH (10:13)
--- NOTE | 2017-02-28 15:05 | CP.PCM.DIS ---
<Theodora Dillard - Last Filed: 02/28/17 17:20> Provider - Provider Date of Admission: 02/21/17 00:55 Attending physician: Oseas Gay MD Primary care physician: Dr. Merino, PMDiaz Redding NP Time Spent in preparation of Discharge (in minutes): 45 Diagnosis - Discharge Diagnosis (1) Sepsis with metabolic encephalopathy Status: Acute (2) Dementia Status: Chronic (3) HLD (hyperlipidemia) Status: Chronic (4) HTN (hypertension) Status: Chronic (5) Constipation Status: Acute (6) Wheezing Status: Acute Hospital Course - Lab Results Lab Results: Micro Results 02/25/17 Unknown Urine Urine Culture - Final No Growth (<1,000 CFU/ML) 02/20/17 20:40 Blood Blood Culture - Final NO GROWTH AFTER 5 DAYS 02/20/17 20:40 Blood Gram Stain - Final TEST NOT PERFORMED 02/20/17 20:10 Blood Blood Culture - Final NO GROWTH AFTER 5 DAYS 02/20/17 20:10 Blood Gram Stain - Final TEST NOT PERFORMED 02/20/17 20:18 Urine,Yanez Urine Culture - Final Escherichia Coli Most Recent Lab Values WBC 7.7 K/uL (4.8-10.8) 02/28/17 07:41 RBC 3.71 Mil/uL (3.80-5.20) L 02/28/17 07:41 Hgb 10.8 g/dL (11.0-16.0) L 02/28/17 07:41 Hct 33.1 % (34.0-47.0) L 02/28/17 07:41 MCV 89.3 fL (81.0-99.0) 02/28/17 07:41 MCH 29.2 pg (27.0-31.0) 02/28/17 07:41 MCHC 32.7 g/dL (33.0-37.0) L 02/28/17 07:41 RDW 15.9 % (11.5-14.5) H 02/28/17 07:41 Plt Count 322 K/uL (130-400) 02/28/17 07:41 MPV 7.9 fL (7.2-11.7) 02/28/17 07:41 Neut % (Auto) 69.3 % (50.0-75.0) 02/28/17 07:41 Lymph % (Auto) 19.8 % (20.0-40.0) L 02/28/17 07:41 [place]isco[place] % (Auto) 7.2 % (0.0-10.0) 02/28/17 07:41 Eos % (Auto) 3.1 % (0.0-4.0) 02/28/17 07:41 Baso % (Auto) 0.6 % (0.0-2.0) 02/28/17 07:41 Neut # 5.3 K/uL (1.8-7.0) 02/28/17 07:41 Lymph # 1.5 K/uL (1.0-4.3) 02/28/17 07:41 [place] # 0.6 K/uL (0.0-0.8) 02/28/17 07:41 Eos # 0.2 K/uL (0.0-0.7) 02/28/17 07:41 Baso # 0.0 K/uL (0.0-0.2) 02/28/17 07:41 Neutrophils % (Manual) 80 % (50-75) H 02/22/17 07:55 Band Neutrophils % 5 % (0-2) H 02/22/17 07:55 Lymphocytes % (Manual) 10 % (20-40) L 02/22/17 07:55 Reactive Lymphs % 1 % (0-0) H 02/22/17 07:55 Monocytes % (Manual) 2 % (0-10) 02/22/17 07:55 Eosinophils % (Manual) 1 % (0-4) 02/20/17 20:38 Basophils % (Manual) 1 % (0-2) 02/22/17 07:55 Metamyelocytes % 1 % (0-0) H 02/22/17 07:55 Platelet Estimate Normal (NORMAL) 02/22/17 07:55 Large Platelets Present 02/20/17 20:38 Hypochromasia (manual) Slight 02/20/17 20:38 Anisocytosis (manual) Slight 02/22/17 07:55 Microcytosis (manual) Slight 02/20/17 20:38 Ovalocytes Slight 02/20/17 20:38 Retic Count 1.4 % (0.5-1.5) 02/22/17 07:55 PT 12.7 SECONDS (9.7-12.2) H 02/20/17 20:38 INR 1.1 02/20/17 20:38 APTT 32 SECONDS (21-34) 02/20/17 20:38 Puncture Site Rb 02/23/17 10:59 pCO2 48 mm/Hg (35-45) H 02/23/17 10:59 pO2 104 mm/Hg (80-100) H 02/23/17 10:59 HCO3 27.6 mmol/L (21-28) 02/23/17 10:59 ABG pH 7.39 (7.35-7.45) 02/23/17 10:59 ABG Total CO2 30.6 mmol/L (22-28) H 02/23/17 10:59 ABG O2 Saturation 98.0 % (95-98) 02/23/17 10:59 ABG Base Excess 3.5 mmol/L (-2.0-3.0) H 02/23/17 10:59 ABG Hemoglobin 9.8 g/dL (11.7-17.4) L 02/23/17 10:59 ABG Carboxyhemoglobin 1.0 % (0.5-1.5) 02/23/17 10:59 POC ABG HHb (Measured) 2.0 % (0.0-5.0) 02/23/17 10:59 ABG Methemoglobin 1.1 % (0.0-3.0) 02/23/17 10:59 Seth Test Na 02/23/17 10:59 VBG pH 7.32 (7.32-7.43) 02/21/17 07:52 VBG pCO2 42 mmHg (40-60) 02/21/17 07:52 VBG HCO3 20.6 mmol/L 02/21/17 07:52 VBG Total CO2 22.9 mmol/L (22-28) 02/21/17 07:52 VBG O2 Sat (Calc) 70.9 % (40-65) H 02/21/17 07:52 VBG Base Excess -4.3 mmol/L (0.0-2.0) L 02/21/17 07:52 VBG Potassium 4.4 mmol/L (3.6-5.2) 02/21/17 07:52 A-a O2 Difference 50.0 mm/Hg 02/23/17 10:59 Respiratory Index 0.5 02/23/17 10:59 Hgb O2 Saturation 95.8 % (95.0-98.0) 02/23/17 10:59 Sodium 142.0 mmol/l (132-148) 02/21/17 07:52 Chloride 113.0 mmol/L (98-107) H 02/21/17 07:52 Glucose 146 mg/dl (65-105) H 02/21/17 07:52 Lactate 3.2 mmol/L (0.7-2.1) H 02/21/17 07:52 Liter Flow 3.0 02/23/17 10:59 FiO2 30.0 % 02/23/17 10:59 Sodium 141 mmol/L (132-148) 02/28/17 07:41 Potassium 4.0 mmol/L (3.6-5.2) 02/28/17 07:41 Chloride 100 mmol/L (98-107) 02/28/17 07:41 Carbon Dioxide 31 mmol/L (22-30) H 02/28/17 07:41 Anion Gap 14 (10-20) 02/28/17 07:41 BUN 13 mg/dL (7-17) 02/28/17 07:41 Creatinine 0.8 mg/dL (0.7-1.2) 02/28/17 07:41 Est GFR ( Amer) > 60 02/28/17 07:41 Est GFR (Non-Af Amer) > 60 02/28/17 07:41 POC Glucose (mg/dL) 104 mg/dL (65-110) 02/27/17 21:14 Random Glucose 102 mg/dL (65-105) 02/28/17 07:41 Calcium 8.8 mg/dl (8.6-10.4) 02/28/17 07:41 Phosphorus 3.8 mg/dL (2.5-4.5) 02/28/17 07:41 Magnesium 1.7 mg/dL (1.6-2.3) 02/28/17 07:41 Iron < 10 ug/dL (37-170) L 02/22/17 07:55 TIBC 238 ug/dL (250-450) L 02/22/17 07:55 % Saturation < 4.2 (20-55) L 02/22/17 07:55 Ferritin 64.9 ng/mL 02/22/17 07:55 Total Bilirubin 0.5 mg/dL (0.2-1.3) 02/28/17 07:41 AST 28 U/L (14-36) 02/28/17 07:41 ALT 38 U/L (9-52) 02/28/17 07:41 Alkaline Phosphatase 92 U/L (38-126) 02/28/17 07:41 Ammonia 11 umol/L (9-33) 02/22/17 07:55 Total Creatine Kinase 900 U/L (30-135) H 02/22/17 07:55 CK-MB (Mass) 7.61 ng/mL (0.0-3.38) H 02/21/17 09:59 Troponin I 0.0150 ng/mL (0.00-0.120) 02/21/17 09:59 Total Protein 7.4 g/dL (6.3-8.3) 02/28/17 07:41 Albumin 3.6 g/dL (3.5-5.0) 02/28/17 07:41 Globulin 3.8 gm/dL (2.2-3.9) 02/28/17 07:41 Albumin/Globulin Ratio 1.0 (1.0-2.1) 02/28/17 07:41 Triglycerides 115 mg/dL (0-149) 02/21/17 07:05 Cholesterol 129 mg/dL (0-199) 02/21/17 07:05 LDL Cholesterol Direct 57 mg/dL (0-129) 02/21/17 07:05 HDL Cholesterol 31 mg/dL (30-70) 02/21/17 07:05 Procalcitonin 0.70 NG/ML (0.19-0.49) H 02/26/17 09:37 Free T4 0.97 ng/dL (0.78-2.19) 02/22/17 07:55 TSH 3rd Generation 3.77 mIU/L (0.46-4.68) 02/22/17 07:55 Venous Blood Potassium 4.4 mmol/L (3.6-5.2) 02/21/17 07:52 Urine Color Yellow (YELLOW) 02/25/17 11:57 Urine Clarity Clear (Clear) 02/25/17 11:57 Urine pH 5.0 (5.0-8.0) 02/25/17 11:57 Ur Specific [place] 1.016 (1.003-1.030) 02/25/17 11:57 Urine Protein Negative mg/dL (NEGATIVE) 02/25/17 11:57 Urine Glucose (UA) Normal mg/dL (Normal) 02/25/17 11:57 Urine Ketones Trace mg/dL (NEGATIVE) 02/25/17 11:57 Urine Blood Negative (NEGATIVE) 02/25/17 11:57 Urine Nitrate Negative (NEGATIVE) 02/25/17 11:57 Urine Bilirubin Negative (NEGATIVE) 02/25/17 11:57 Urine Urobilinogen Normal mg/dL (0.2-1.0) 02/25/17 11:57 Ur Leukocyte Esterase 1+ Janell/uL (Negative) H 02/25/17 11:57 Urine WBC (Auto) 1 /hpf (0-5) 02/25/17 11:57 Urine RBC (Auto) 1 /hpf (0-3) 02/25/17 11:57 Ur Squamous Epith Cells 1 /hpf (0-5) 02/25/17 11:57 Urine Bacteria Rare (<OCC) 02/20/17 21:03 Stool Occult Blood Negative (NEGATIVE) 02/21/17 18:02 Vancomycin Trough 17.2 ug/mL (5.0-10.0) H 02/27/17 13:41 Urine Opiates Screen Negative (NEGATIVE) 02/22/17 07:18 Urine Methadone Screen Negative (NEGATIVE) 02/22/17 07:18 Ur Barbiturates Screen Negative (NEGATIVE) 02/22/17 07:18 Ur Phencyclidine Scrn Negative (NEGATIVE) 02/22/17 07:18 Ur Amphetamines Screen Negative (NEGATIVE) 02/22/17 07:18 U Benzodiazepines Scrn Negative (NEGATIVE) 02/22/17 07:18 U Oth Cocaine Metabols Negative (NEGATIVE) 02/22/17 07:18 U Cannabinoids Screen Negative (NEGATIVE) 02/22/17 07:18 Influenza Typ A,B (EIA) Negative for flu a/b (NEGATIVE) 02/21/17 05:41 Ur Strep pneumoniae Ag Not detected 12/06/17 14:58 - Hospital Course Hospital Course: CC: fever, chills, unresponsive per son HPI: 86F with PMH of dementia, anxiety, HLD and HTN who presented to the ED via EMS for fever, chills, and unresponsiveness. Patient lives with her son who says around 2:00 pm the patient was found to be shaking and feeling "unwell". He says later in the afternoon when he came home she was obtunded, tachypnic, and had saliva coming out of her mouth. He says when he touched her she felt hot to the touch and she was not opening her eyes. During exam the patient is more awake now than what he describes her as earlier, but still somewhat confused. She keeps asking to go to the bathroom even after repeatedly being told she has a Yanez in place. Patient's son says she is usually confused at baseline and over the past year has been having a more difficult time finding their bathroom at home. He notes that he was recently ill with a URI that he was given antibiotics for and is concerned he may have passed this to her since she has now had a cough productive of yellow phlegm for 2 days. He called the patient's PCP who prescribed her levoquin, however by the time he picked it up from the pharmacy he had to call the ambulance. Patient is complaining of right thumb pain but otherwise denies headache, sore throat, dizziness, chest pain abdominal pain, nausea, and vomiting. A full ROS was difficult to obtain 2/2 patient confusion. 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 She was admitted for sepsis secondary to pneumonia and UTI. In the ED, labs, chest xray, and ekg were ordered. Critical care, Dr. Howe, was consulted. Patient did not need to be transferred to ICU at that time as patient's mental status improved. Patient was admitted to telemetry and had 1:1 observation. An initial chest xray done on 02/20 revealed no acute findings, however an followup chest xray done on 02/22 revealed interval worsening of right sided pneumonia with new left limited perihilar infiltrate now identified. On labs, lactate was was 2.4, procalcitonin was 3.19 , WBCs were 16.6. ID, Dr. De La Fuente, was consulted. Pulmonology, Dr. Shanks, was consulted. Chest CT revealed a right upper lobe and right lung base pneumonia. Patient was started on antibiotics and IV fluids, and labs were monitored daily for improvement. Cultures were done, blood cultures were negative, and urine culture was positive for e.coli. Antibiotics were continued. Repeat urine culture 5 days later showed no growth. Leukocytosis and bandemia continuously improved. Patient complained of constipation, for which she was given colace, dulcolax, and lactulose. Patient started to have bowel movements after treatment. Patient's history of dementia, hyperlipidemia, hypertension, hypothyroidism, and agitation were monitored and medically controlled throughout hospital course. Patient had an echocardiogram 02/21 which revealed normal LV size and function, normal wall thickness, with EF 54.6%, with grade 1 abnormal relaxation patter; mild pulmonary hypertension. The patient also had an abdomen/pelvis CT to look for source of infection, which reveal gallbladder distension, solitary gallstone; left colonic diverticulosis and fecal stasis. Head CT was also done which showed findings suggesting chronic infarct, chronic microvascular ischemic changes, and sinus mucosal disease. The patient has been afebrile, vitals have been stable, Influenza A,B- negative, blood cultures and urine cultures have been negative. Patient is stable for discharge to home. Patient must follow up with their PMD and [employer], Dr. Merino and Jessica Redding, respectively, within 1 week of discharge. This is a brief summary of the hospital course. Please see EMR for more details. Discharge Exam - Head Exam Head Exam: ATRAUMATIC, NORMAL INSPECTION, NORMOCEPHALIC - Eye Exam Eye Exam: EOMI, Normal appearance, PERRL - ENT Exam ENT Exam: Mucous Membranes Moist - Neck Exam Neck exam: Normal Inspection - Respiratory Exam Respiratory Exam: Clear to PA & Lateral, NORMAL BREATHING PATTERN. absent: Rales, Rhonchi, Wheezes, Respiratory Distress - Cardiovascular Exam Cardiovascular Exam: REGULAR RHYTHM, +S1, +S2 - GI/Abdominal Exam GI & Abdominal Exam: Normal Bowel Sounds, Soft. absent: Distended, Firm, Tenderness - Extremities Exam Extremities exam: normal inspection - Neurological Exam Neurological exam: Alert - Psychiatric Exam Psychiatric exam: Normal Affect, Normal Mood - Skin Skin Exam: Dry, Intact, Normal Color, Warm Additional comments: no sacral decubitus ulcers noted. Discharge Plan - Discharge Medications Prescriptions: Amoxicillin/Clavulanate [Augmentin 500 MG-125 MG] 1 tab PO BID 5 Days #10 tab Docusate [Colace] 100 mg PO BID #60 cap Donepezil [Aricept] 5 mg PO DAILY #30 tab Ferrous Sulfate [Feosol] 325 mg PO DAILY #30 tab Klonopin 1 mg PO Q8H PRN #30 PRN Reason: Anxiety Levothyroxine [Synthroid] 25 mcg PO DAILY@0630 #30 tab Oxybutynin 5 mg PO DAILY #30 Pravastatin Sodium [Pravachol] 20 mg PO HS #30 tab QUEtiapine [Seroquel] 75 mg PO HS #30 tab QUEtiapine [SEROquel] 50 mg PO DAILY #30 tab Saccharomyces Boulardi [Florastor] 250 mg PO BID 35 Days cap - Follow Up Plan Condition: GUARDED Disposition: HOME/ ROUTINE Instructions: Oxybutynin (By mouth), Clonazepam (By mouth), Levothyroxine (By mouth), Amoxicillin/Clavulanate Potassium (By mouth), Laxative, Stool Softeners (By mouth), Pravastatin (By mouth), Donepezil (By mouth), Quetiapine (By mouth) , Probiotic (By mouth), Complete Blenderized Diet (DC), Sepsis (GEN), Pneumonia (DC) Additional Instructions: Patient is stable for discharge to home. Patient must take medications listed below as prescribed: - Ferrous Sulfate 325mg PO daily- take 1 tablet daily (at 12pm) - Levothyroxine 25mcg PO daily- take 1 tablet by mouth daily (at 7am) - Aricept 5mg PO daily- take 1 tablet by mouth daily (at 7am) - Oxybutinin 5mg PO daily- take 1 tablet by mouth daily (at 7am) - Pravastatin 20mg PO HS- take 1 tablet by mouth at night (at 7pm) - Seroquel 50mg PO in AM- take 1 tablet by mouth in the morning (at 7am) - Seroquel 75mg PO HS- take 1 tablet by mouth at night (at 7pm) - Klonopin 1mg PO Q8h PRN- take 1 tablet by mouth every 8 hours as needed for anxiety - Colace 100mg PO BID- take 1 tablet by mouth twice a day (at 7am and 7pm) - Augmentin 500-125mg PO BID- take 1 tablet by mouth twice a day for 5 days (at breakfast and dinner) - Florastor 250mg PO BID- take 1 tablet by mouth twice a day for 35 days - Or ask your pharmacist for their preferred over the counter probiotic and take for 35 days. Patient must discontinue the following medications: - DO NOT take Cozaar and Isosorbide Dinitrate. - DO NOT take Percocet. - DO NOT take Paroxetine. Patient must schedule appointment for follow up with PMD, Dr. Merino, and [employer], Jessica Redding, in the next 7 days. Please bring printed copy of hospital report to outpatient appointment. Patient will need a repeat chest xray in 6 weeks. Do not take percocet, and paroxetine. Do not take Cozaar and isosorbide dinitrate (patient's blood pressure was controlled without these medications). If symptoms reoccur or worsen, patient should return to the ED. Referrals: Devorah Merino MD [Staff Provider] - <Oseas Gay - Last Filed: 02/28/17 19:05> Provider - Provider Date of Admission: 02/21/17 00:55 Attending physician: Oseas Gay MD Hospital Course - Lab Results Lab Results: Micro Results 02/25/17 Unknown Urine Urine Culture - Final No Growth (<1,000 CFU/ML) 02/20/17 20:40 Blood Blood Culture - Final NO GROWTH AFTER 5 DAYS 02/20/17 20:40 Blood Gram Stain - Final TEST NOT PERFORMED 02/20/17 20:10 Blood Blood Culture - Final NO GROWTH AFTER 5 DAYS 02/20/17 20:10 Blood Gram Stain - Final TEST NOT PERFORMED 02/20/17 20:18 Urine,Yanez Urine Culture - Final Escherichia Coli Most Recent Lab Values WBC 7.7 K/uL (4.8-10.8) 02/28/17 07:41 RBC 3.71 Mil/uL (3.80-5.20) L 02/28/17 07:41 Hgb 10.8 g/dL (11.0-16.0) L 02/28/17 07:41 Hct 33.1 % (34.0-47.0) L 02/28/17 07:41 MCV 89.3 fL (81.0-99.0) 02/28/17 07:41 MCH 29.2 pg (27.0-31.0) 02/28/17 07:41 MCHC 32.7 g/dL (33.0-37.0) L 02/28/17 07:41 RDW 15.9 % (11.5-14.5) H 02/28/17 07:41 Plt Count 322 K/uL (130-400) 02/28/17 07:41 MPV 7.9 fL (7.2-11.7) 02/28/17 07:41 Neut % (Auto) 69.3 % (50.0-75.0) 02/28/17 07:41 Lymph % (Auto) 19.8 % (20.0-40.0) L 02/28/17 07:41 [place] % (Auto) 7.2 % (0.0-10.0) 02/28/17 07:41 Eos % (Auto) 3.1 % (0.0-4.0) 02/28/17 07:41 Baso % (Auto) 0.6 % (0.0-2.0) 02/28/17 07:41 Neut # 5.3 K/uL (1.8-7.0) 02/28/17 07:41 Lymph # 1.5 K/uL (1.0-4.3) 02/28/17 07:41 [place] # 0.6 K/uL (0.0-0.8) 02/28/17 07:41 Eos # 0.2 K/uL (0.0-0.7) 02/28/17 07:41 Baso # 0.0 K/uL (0.0-0.2) 02/28/17 07:41 Neutrophils % (Manual) 80 % (50-75) H 02/22/17 07:55 Band Neutrophils % 5 % (0-2) H 02/22/17 07:55 Lymphocytes % (Manual) 10 % (20-40) L 02/22/17 07:55 Reactive Lymphs % 1 % (0-0) H 02/22/17 07:55 Monocytes % (Manual) 2 % (0-10) 02/22/17 07:55 Eosinophils % (Manual) 1 % (0-4) 02/20/17 20:38 Basophils % (Manual) 1 % (0-2) 02/22/17 07:55 Metamyelocytes % 1 % (0-0) H 02/22/17 07:55 Platelet Estimate Normal (NORMAL) 02/22/17 07:55 Large Platelets Present 02/20/17 20:38 Hypochromasia (manual) Slight 02/20/17 20:38 Anisocytosis (manual) Slight 02/22/17 07:55 Microcytosis (manual) Slight 02/20/17 20:38 Ovalocytes Slight 02/20/17 20:38 Retic Count 1.4 % (0.5-1.5) 02/22/17 07:55 PT 12.7 SECONDS (9.7-12.2) H 02/20/17 20:38 INR 1.1 02/20/17 20:38 APTT 32 SECONDS (21-34) 02/20/17 20:38 Puncture Site Rb 02/23/17 10:59 pCO2 48 mm/Hg (35-45) H 02/23/17 10:59 pO2 104 mm/Hg (80-100) H 02/23/17 10:59 HCO3 27.6 mmol/L (21-28) 02/23/17 10:59 ABG pH 7.39 (7.35-7.45) 02/23/17 10:59 ABG Total CO2 30.6 mmol/L (22-28) H 02/23/17 10:59 ABG O2 Saturation 98.0 % (95-98) 02/23/17 10:59 ABG Base Excess 3.5 mmol/L (-2.0-3.0) H 02/23/17 10:59 ABG Hemoglobin 9.8 g/dL (11.7-17.4) L 02/23/17 10:59 ABG Carboxyhemoglobin 1.0 % (0.5-1.5) 02/23/17 10:59 POC ABG HHb (Measured) 2.0 % (0.0-5.0) 02/23/17 10:59 ABG Methemoglobin 1.1 % (0.0-3.0) 02/23/17 10:59 Seth Test Na 02/23/17 10:59 VBG pH 7.32 (7.32-7.43) 02/21/17 07:52 VBG pCO2 42 mmHg (40-60) 02/21/17 07:52 VBG HCO3 20.6 mmol/L 02/21/17 07:52 VBG Total CO2 22.9 mmol/L (22-28) 02/21/17 07:52 VBG O2 Sat (Calc) 70.9 % (40-65) H 02/21/17 07:52 VBG Base Excess -4.3 mmol/L (0.0-2.0) L 02/21/17 07:52 VBG Potassium 4.4 mmol/L (3.6-5.2) 02/21/17 07:52 A-a O2 Difference 50.0 mm/Hg 02/23/17 10:59 Respiratory Index 0.5 02/23/17 10:59 Hgb O2 Saturation 95.8 % (95.0-98.0) 02/23/17 10:59 Sodium 142.0 mmol/l (132-148) 02/21/17 07:52 Chloride 113.0 mmol/L (98-107) H 02/21/17 07:52 Glucose 146 mg/dl (65-105) H 02/21/17 07:52 Lactate 3.2 mmol/L (0.7-2.1) H 02/21/17 07:52 Liter Flow 3.0 02/23/17 10:59 FiO2 30.0 % 02/23/17 10:59 Sodium 141 mmol/L (132-148) 02/28/17 07:41 Potassium 4.0 mmol/L (3.6-5.2) 02/28/17 07:41 Chloride 100 mmol/L (98-107) 02/28/17 07:41 Carbon Dioxide 31 mmol/L (22-30) H 02/28/17 07:41 Anion Gap 14 (10-20) 02/28/17 07:41 BUN 13 mg/dL (7-17) 02/28/17 07:41 Creatinine 0.8 mg/dL (0.7-1.2) 02/28/17 07:41 Est GFR ( Amer) > 60 02/28/17 07:41 Est GFR (Non-Af Amer) > 60 02/28/17 07:41 POC Glucose (mg/dL) 104 mg/dL (65-110) 02/27/17 21:14 Random Glucose 102 mg/dL (65-105) 02/28/17 07:41 Calcium 8.8 mg/dl (8.6-10.4) 02/28/17 07:41 Phosphorus 3.8 mg/dL (2.5-4.5) 02/28/17 07:41 Magnesium 1.7 mg/dL (1.6-2.3) 02/28/17 07:41 Iron < 10 ug/dL (37-170) L 02/22/17 07:55 TIBC 238 ug/dL (250-450) L 02/22/17 07:55 % Saturation < 4.2 (20-55) L 02/22/17 07:55 Ferritin 64.9 ng/mL 02/22/17 07:55 Total Bilirubin 0.5 mg/dL (0.2-1.3) 02/28/17 07:41 AST 28 U/L (14-36) 02/28/17 07:41 ALT 38 U/L (9-52) 02/28/17 07:41 Alkaline Phosphatase 92 U/L (38-126) 02/28/17 07:41 Ammonia 11 umol/L (9-33) 02/22/17 07:55 Total Creatine Kinase 900 U/L (30-135) H 02/22/17 07:55 CK-MB (Mass) 7.61 ng/mL (0.0-3.38) H 02/21/17 09:59 Troponin I 0.0150 ng/mL (0.00-0.120) 02/21/17 09:59 Total Protein 7.4 g/dL (6.3-8.3) 02/28/17 07:41 Albumin 3.6 g/dL (3.5-5.0) 02/28/17 07:41 Globulin 3.8 gm/dL (2.2-3.9) 02/28/17 07:41 Albumin/Globulin Ratio 1.0 (1.0-2.1) 02/28/17 07:41 Triglycerides 115 mg/dL (0-149) 02/21/17 07:05 Cholesterol 129 mg/dL (0-199) 02/21/17 07:05 LDL Cholesterol Direct 57 mg/dL (0-129) 02/21/17 07:05 HDL Cholesterol 31 mg/dL (30-70) 02/21/17 07:05 Procalcitonin 0.70 NG/ML (0.19-0.49) H 02/26/17 09:37 Free T4 0.97 ng/dL (0.78-2.19) 02/22/17 07:55 TSH 3rd Generation 3.77 mIU/L (0.46-4.68) 02/22/17 07:55 Venous Blood Potassium 4.4 mmol/L (3.6-5.2) 02/21/17 07:52 Urine Color Yellow (YELLOW) 02/25/17 11:57 Urine Clarity Clear (Clear) 02/25/17 11:57 Urine pH 5.0 (5.0-8.0) 02/25/17 11:57 Ur Specific [place] 1.016 (1.003-1.030) 02/25/17 11:57 Urine Protein Negative mg/dL (NEGATIVE) 02/25/17 11:57 Urine Glucose (UA) Normal mg/dL (Normal) 02/25/17 11:57 Urine Ketones Trace mg/dL (NEGATIVE) 02/25/17 11:57 Urine Blood Negative (NEGATIVE) 02/25/17 11:57 Urine Nitrate Negative (NEGATIVE) 02/25/17 11:57 Urine Bilirubin Negative (NEGATIVE) 02/25/17 11:57 Urine Urobilinogen Normal mg/dL (0.2-1.0) 02/25/17 11:57 Ur Leukocyte Esterase 1+ Janell/uL (Negative) H 02/25/17 11:57 Urine WBC (Auto) 1 /hpf (0-5) 02/25/17 11:57 Urine RBC (Auto) 1 /hpf (0-3) 02/25/17 11:57 Ur Squamous Epith Cells 1 /hpf (0-5) 02/25/17 11:57 Urine Bacteria Rare (<OCC) 02/20/17 21:03 Stool Occult Blood Negative (NEGATIVE) 02/21/17 18:02 Vancomycin Trough 17.2 ug/mL (5.0-10.0) H 02/27/17 13:41 Urine Opiates Screen Negative (NEGATIVE) 02/22/17 07:18 Urine Methadone Screen Negative (NEGATIVE) 02/22/17 07:18 Ur Barbiturates Screen Negative (NEGATIVE) 02/22/17 07:18 Ur Phencyclidine Scrn Negative (NEGATIVE) 02/22/17 07:18 Ur Amphetamines Screen Negative (NEGATIVE) 02/22/17 07:18 U Benzodiazepines Scrn Negative (NEGATIVE) 02/22/17 07:18 U Oth Cocaine Metabols Negative (NEGATIVE) 02/22/17 07:18 U Cannabinoids Screen Negative (NEGATIVE) 02/22/17 07:18 Influenza Typ A,B (EIA) Negative for flu a/b (NEGATIVE) 02/21/17 05:41 Ur Strep pneumoniae Ag Not detected 02/22/17 14:58 Attending/Attestation - Attestation I have personally seen and examined this patient.: Yes I have fully participated in the care of the patient.: Yes I have reviewed all pertinent clinical information, including history, physical exam and plan: Yes Notes (Text): 02/28/17 19:04 Patient was seen and examined with the resident along with the patient's Daughter In Law who translated for patient. Exam, Assessment and Plan, and discharge orders and medications were thoroughly gone over with the Resident. Oseas Gay D.O.
--- NOTE | 2017-02-28 16:21 | CP.PCM.CON ---
History of Present Illness - History of Present Illness History of Present Illness: Pt is a 86 y/o F with a PMHx of arthritis, dementia, and HTN who initially presented with unresponsiveness, fever, productive cough. Pulmonology was consulted for aspiration pneumonia. No recent hospitalization. Patient was seen and examined at bedside. Patient is resting comfortably. Grand- daughter was at bedside. Patient says she is feeling better and denies fever, chills, shortness of breath, cough, chest pain, and abdominal pain. Patient is complaining of back pain. Allergies: NKA PMHx: dementia, arthritis, HTN, hyperlipidemia PSHx: Knee replacement surgery SocialHx: patient denies smoking, alcohol or illicit drug use. Patient lives at home with family. She has help with ADLs during the day and family takes care of pt in evenings. Past Patient History - Infectious Disease Hx of Infectious Diseases: None - Past Medical History & Family History Past Medical History?: Yes - Past Social History Smoking Status: Never Smoked Alcohol: None Home Situation {Lives}: With Family Domestic Violence: Negative - CARDIAC Hx Hypercholesterolemia: Yes Hx Hypertension: Yes - PULMONARY Other/Comment: Hx of upper respiratory infection. - NEUROLOGICAL Hx Alzheimer's Disease: Yes - RENAL Hx Chronic Kidney Disease: No - ENDOCRINE/METABOLIC Hx Hypothyroidism: Yes (on synthroid) - MUSCULOSKELETAL/RHEUMATOLOGICAL Hx Arthritis: Yes - PSYCHIATRIC Hx Anxiety: Yes Hx Depression: Yes Hx Substance Use: No - SURGICAL HISTORY Hx Surgeries: Yes Other/Comment: "knee surgery" to unknown side as per son. - ANESTHESIA Hx Anesthesia: Yes Hx Anesthesia Reactions: No Hx Malignant Hyperthermia: No Meds Home Medications: Home Medication List Medication Instructions Recorded Confirmed Type Amoxicillin/Clavulanate [Augmentin 1 tab PO BID 5 Days #10 tab 02/28/17 Rx 500 MG-125 MG] Docusate [Colace] 100 mg PO BID #60 cap 02/28/17 Rx Donepezil [Aricept] 5 mg PO DAILY #30 tab 02/28/17 Rx Ferrous Sulfate [Feosol] 325 mg PO DAILY #30 tab 02/28/17 Rx Klonopin 1 mg PO Q8H PRN #30 02/28/17 Rx Levothyroxine [Synthroid] 25 mcg PO DAILY@0630 #30 tab 02/28/17 Rx Oxybutynin 5 mg PO DAILY #30 02/28/17 Rx Pravastatin Sodium [Pravachol] 20 mg PO HS #30 tab 02/28/17 Rx QUEtiapine [SEROquel] 50 mg PO DAILY #30 tab 02/28/17 Rx QUEtiapine [Seroquel] 75 mg PO HS #30 tab 02/28/17 Rx Saccharomyces Boulardi [Florastor] 250 mg PO BID 35 Days cap 02/28/17 Rx Allergies/Adverse Reactions: Allergies Allergy/AdvReac Type Severity Reaction Status Date / Time No Known Allergies Allergy Verified 02/20/17 19:47 - Medications Medications: Current Medications Acetaminophen (Tylenol 325mg Tab) 650 mg PO Q6 PRN PRN Reason: Headache Last Admin: 02/27/17 17:18 Dose: 650 mg Albuterol/Ipratropium (Duoneb 3 Mg/0.5 Mg (3 Ml) Ud) 3 ml INH RQ4 PRN PRN Reason: Shortness of Breath Last Admin: 02/22/17 11:29 Dose: 3 ml Albuterol/Ipratropium (Duoneb 3 Mg/0.5 Mg (3 Ml) Ud) 3 ml INH RQ6 GRAY Last Admin: 02/28/17 13:25 Dose: 3 ml Clonazepam (Klonopin) 1 mg PO Q8H GRAY Docusate Sodium (Colace) 100 mg PO TID [facility] Last Admin: 02/28/17 14:12 Dose: 100 mg Donepezil HCl (Aricept) 5 mg PO HS [facility] Last Admin: 02/27/17 21:24 Dose: 5 mg Ferrous Sulfate (Feosol) 325 mg PO DAILY [facility] Last Admin: 02/28/17 10:13 Dose: 325 mg Heparin Sodium (Porcine) (Heparin) 5,000 units SC Q8 [facility] Last Admin: 02/28/17 14:13 Dose: 5,000 units Vancomycin/Sodium Chloride (Vancomycin 1 Gm/Ns 200 Ml) 1 gm in 200 mls @ 133.333 mls/hr IVPB Q24H [facility] Last Admin: 02/27/17 17:21 Dose: 133.333 mls/hr Meropenem 500 mg/ Sodium (Chloride) 100 mls @ 100 mls/hr IVPB Q8H [facility] Last Admin: 02/28/17 14:13 Dose: 100 mls/hr Levothyroxine Sodium (Synthroid) 25 mcg PO DAILY@0630 [facility] Last Admin: 02/28/17 06:27 Dose: 25 mcg Pantoprazole Sodium (Protonix Ec Tab) 40 mg PO DAILY [facility] Last Admin: 02/28/17 10:13 Dose: 40 mg Quetiapine Fumarate (Seroquel) 50 mg PO DAILY [facility] Last Admin: 02/28/17 10:12 Dose: 50 mg Quetiapine Fumarate (Seroquel) 75 mg PO HS [facility] Last Admin: 02/27/17 21:24 Dose: 75 mg Rosuvastatin Calcium (Crestor) 2.5 mg PO DAILY [facility] Last Admin: 02/28/17 10:13 Dose: 2.5 mg Saccharomyces Boulardii (Florastor) 250 mg PO BID [facility] Last Admin: 02/28/17 10:12 Dose: 250 mg Results - Vital Signs Recent Vital Signs: Last Vital Signs Temp 98.7 F 02/28/17 07:00 Pulse 87 02/28/17 07:00 Resp 20 02/28/17 07:00 BP 140/75 02/28/17 07:00 Pulse Ox 92 L 02/28/17 07:00 - Labs Result Diagrams: 02/28/17 07:41 02/28/17 07:41 Labs: Laboratory Results - last 24 hr 02/27/17 02/27/17 02/28/17 16:32 21:14 07:41 WBC 7.7 RBC 3.71 L Hgb 10.8 L Hct 33.1 L MCV 89.3 MCH 29.2 MCHC 32.7 L RDW 15.9 H Plt Count 322 MPV 7.9 Neut % (Auto) 69.3 Lymph % (Auto) 19.8 L [place] % (Auto) 7.2 Eos % (Auto) 3.1 Baso % (Auto) 0.6 Neut # 5.3 Lymph # 1.5 [place] # 0.6 Eos # 0.2 Baso # 0.0 Sodium Potassium Chloride Carbon Dioxide Anion Gap BUN Creatinine Est GFR ( Amer) Est GFR (Non-Af Amer) POC Glucose (mg/dL) 104 104 Random Glucose Calcium Phosphorus Magnesium Total Bilirubin AST ALT Alkaline Phosphatase Total Protein Albumin Globulin Albumin/Globulin Ratio 02/28/17 07:41 WBC RBC Hgb Hct MCV MCH MCHC RDW Plt Count MPV Neut % (Auto) Lymph % (Auto) [place] % (Auto) Eos % (Auto) Baso % (Auto) Neut # Lymph # [place] # Eos # Baso # Sodium 141 Potassium 4.0 Chloride 100 Carbon Dioxide 31 H Anion Gap 14 BUN 13 Creatinine 0.8 Est GFR ( Amer) > 60 Est GFR (Non-Af Amer) > 60 POC Glucose (mg/dL) Random Glucose 102 Calcium 8.8 Phosphorus 3.8 Magnesium 1.7 Total Bilirubin 0.5 AST 28 ALT 38 Alkaline Phosphatase 92 Total Protein 7.4 Albumin 3.6 Globulin 3.8 Albumin/Globulin Ratio 1.0 Assessment & Plan (1) Pneumonia Status: Acute Comment: continue IV antibiotics. Follow-up culture and sensitivity. Follow- up chest x-ray. ABG. Does not need thoracentesis (2) Sepsis Status: Acute
[2017-02-28 16:28] VITALS: BP 114/69; PULSE 99; TEMP 97.7; O2SAT 98
[2017-02-28] MEDS: Vancomycin 1 gm/NS 200 ml 1 GM/200 ML BAG IVPB SCH (16:33)
== END 2017-02-28 19:35 | disposition home health service (06) | DRG 871 ==
LOC: C.ER 19:32 → C.6T 02-21 00:55
PROVIDERS: ADMIT Family Medicine; ATTEND Family Medicine
DX: A41.9 Sepsis, unspecified organism (principal); G93.41 Metabolic encephalopathy; R65.21 Severe sepsis with septic shock; N39.0 Urinary tract infection, site not specified; G30.9 Alzheimer's disease, unspecified; I27.20 Pulmonary hypertension, unspecified; F02.80 Dementia in other diseases classified elsewhere, unspecified severity, without behavioral disturbance, psychotic disturbance, mood disturbance, and anxiety; E03.9 Hypothyroidism, unspecified; E78.00 Pure hypercholesterolemia, unspecified; E78.5 Hyperlipidemia, unspecified; I10 Essential (primary) hypertension; K59.00 Constipation, unspecified; Z79.899 Other long term (current) drug therapy; Z80.1 Family history of malignant neoplasm of trachea, bronchus and lung; Z82.49 Family history of ischemic heart disease and other diseases of the circulatory system; Z91.81 History of falling; Z96.652 Presence of left artificial knee joint; F32.9 Major depressive disorder, single episode, unspecified; F41.9 Anxiety disorder, unspecified; R19.7 Diarrhea, unspecified; R45.1 Restlessness and agitation; R63.0 Anorexia; B96.20 Unspecified Escherichia coli [E. coli] as the cause of diseases classified elsewhere

== ENCOUNTER 2018-04-29 08:19 | Inpatient (IN) | payer MEDICARE, OTHER ==
--- NOTE | 2018-04-29 08:39 | C.PDOC ---
History Of Present Illness HPI is limited due to dementia. 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 Patient initially v omited food, and vomit today was clear with dark brown output. Denies bright red blood in vomit. Also reports, new onset abdominal pain that began this morning. Denies diarrhea, or fever. Patient was administered Zofran SENIOR PLANNING ANALYST without improvement. As per family, they give patient GI medications "occasionally in order avoid side effects," unknown why patient is prescribed antacids. Patient has no past surgical history. LIMITED DUE TO DEMENTIA PER FAMILY, MULT VOMITING SINCE LAST NIGHT. LAST EPISODE SENIOR PLANNING ANALYST. INITIALLY VOMITED FOOD, CLEAR TODAY W DARK BROWN OUTPUT. NO BRB. +NEW ONSET ABD PAIN SINCE THIS MORNING. NO DIARRHEA, FEVER. GAVE ZOFRAN SENIOR PLANNING ANALYST WO IMPROVE. PMH of dementia, anxiety, HLD and HTN. PER FAMILY, GIVES PT GI MEDS "OCCASIONALLY IN ORDER AVOID SIDE EFFECTS", UNK WHY PT IS PRESCRIBED ANTACIDS. PSH NEG. ROS LIMITED EXAM NONTOXIC, @ BASELINE PER FAMILY HEENT ANICERTIC; MMM ABD SOFT NT ND NO R/G EXT CHRONIC CONTRACTURES B/L UE NEURO ALERT, AWAKE, RESPONDS TO VOICE GOOD TURGOR REMAINDER NEG Time Seen by Provider: 04/29/18 08:36 Chief Complaint (Nursing): Abdominal Pain History Per: Family History/Exam Limitations: clinical condition Onset/Duration Of Symptoms: Hrs Current Symptoms Are (Timing): Still Present Associated Symptoms: Vomiting. denies: Fever, Chills, Diarrhea Exacerbating Factors: None Alleviating Factors: None Recent travel outside of the [place]: No Abnormal Vaginal Bleeding: No Past Medical History Reviewed: Historical Data, Nursing Documentation, Vital Signs Vital Signs: Last Vital Signs Temp 98.0 F 04/29/18 08:23 Pulse 72 04/29/18 08:23 Resp 18 04/29/18 08:23 BP 116/69 04/29/18 08:23 Pulse Ox 95 04/29/18 08:23 - Medical History PMH: Alzheimer's Disease, Anxiety, Arthritis, Depression, HTN, Hypercholesterolemia, Hypothyroidism (on synthroid) Denies: Chronic Kidney Disease Surgical History: No Surg Hx Family History: States: Unknown Family Hx - Social History Hx Tobacco Use: No Hx Alcohol Use: No Hx Substance Use: No - Immunization History Hx Tetanus Toxoid Vaccination: No Hx Influenza Vaccination: No Hx Pneumococcal Vaccination: No Review Of Systems Review Of Systems: ROS cannot be obtained secondary to pt's inabilty to answer questions. Constitutional: Negative for: Fever (Due to dementia ) Gastrointestinal: Positive for: Vomiting, Abdominal Pain. Negative for: Diarrhea Physical Exam - Physical Exam Appears: Non-toxic, No Acute Distress, Other (At baseline per family) Skin: Normal Color, Warm, Dry, No Rash, Other (GOOD [place]URGOR) Head: Atraumatic, Normacephalic Eye(s): bilateral: Normal Inspection (anicteric), PERRL, EOMI Ear(s): Bilateral: Normal Nose: Normal, No Discharge Oral Mucosa: Moist Throat: Normal, No Erythema, No Exudate, No Drooling, No Mass Neck: Normal ROM, Supple Cardiovascular: Rhythm Regular, No Murmur Respiratory: Normal Breath Sounds, No Rales, No Rhonchi, No Wheezing, Other (NARD) Gastrointestinal/Abdominal: Soft, No Tenderness, No Guarding, No Rebound Extremity: Other ( CHRONIC CONTRACTURES BILATERAL UPPER EXTREMITIES ) Extremity: Bilateral: Atraumatic, Normal Color And Temperature, Normal ROM Pulses: Left Radial: Normal, Right Radial: Normal Neurological/Psych: Other (Alert, Awake, Responds to voice ) Gait: Steady ED Course And Treatment - Laboratory Results Result Diagrams: 04/29/18 09:25 04/29/18 09:25 O2 Sat by Pulse Oximetry: 95 (RA) Pulse Ox Interpretation: Normal - Radiology CXR: Interpreted by Me CXR Interpretation: Yes: No Acute Disease - Other Rad CXR X-Ray: Viewed By Me, Read By Radiologist Interpretation: Date of service: 04/29/2018. HISTORY: abd pain VOMITING. COMPARISON: Portable chest 02/22/2017. FINDINGS: LUNGS: Thickening of the minor fissure is noted versus trace fluid within it. No right-sided infiltrate. Borderline patchy density left perihilar region. PLEURA: No significant pleural effusion identified, no pneumothorax apparent. CARDIOVASCULAR: Calcific atherosclerotic changes are seen related to the thoracic aorta. Normal cardiac size. No pulmonary vascular congestion. OSSEOUS STRUCTURES: No significant abnormalities. VISUALIZED UPPER ABDOMEN: Mammilated right hemidiaphragm reiterated. OTHER FINDINGS: None. IMPRESSION: Borderline patchy density left perihilar region. Remaining lung mohan reflect only fluid or thickening of the minor fissure. No pulmonary vascular congestion. - CT Scan/US Abdomen/Pelvis CT Other Rad Studies (CT/US): Read By Radiologist, Radiology Report Reviewed CT/US Interpretation: Date of service: 04/29/2018. PROCEDURE: CT Abdomen and Pelvis with contrast. HISTORY: abd pain VOMITING. COMPARISON: Abdomen pelvis CT without contrast 02/21/2017. TECHNIQUE: Following the intravenous administration of iodinated contrast material, a CT examination of the abdomen and pelvis was performed from the domes of the diaphragms to the symphysis pubis with reformatted datasets provided in axial, sagittal and coronal planes. Oral contrast was not administered as per referring physician request. Contrast dose: Omnipaque 300, 100 cc. Radiation dose: Total exam DLP = 900.26 mGy-cm. This CT exam was performed using one or more of the following dose reduction techniques: Automated exposure control, adjustment of the mA and/or kV according to patient size, and/or use of iterative reconstruction technique. FINDINGS: LOWER THORAX: Cardiomegaly and interstitial pulmonary changes are again seen at the bases with elevated right hemidiaphragm. Small hiatal hernia reiterated with thickened distal esophagus not excluded. Subsegmental atelectasis identified bilaterally. LIVER: Mild hepatic steatosis appreciated. Granulomata again seen at the right lobe superiorly. GALLBLADDER AND BILE DUCTS: Thin walled but distended gallbladder is appreciate with limited cholelithiasis in the lumen once again. PANCREAS: Partially fat replaced but nonfocal pancreas identified once again. SPLEEN: Unremarkable. ADRENALS: A trophic partially calcified right adrenal gland identified with the left adrenal gland normal. KIDNEYS AND URETERS: A few small left renal cyst identified with additional lucencies too small to characterize at both kidneys. No obstructive uropathy bilaterally or solid renal mass appreciable bilaterally. VASCULATURE: Nonaneurysmal abdominal aortic calcific atherosclerotic changes are identified. BOWEL: Left colonic diverticular change are present which are nonacute. There [id number] dilatation of central small bowel loops with the stomach collapsed. Limited retained fecal material is seen within large bowel at the proximal and middle segments with the distal segment collapsed. Fluid is seen the right lower quadrant and there is a transitional distal small bowel loop at the right flank/lower quadrant which appears fecalized and subsequently collapses proximal to the terminal ileum. Loops proximal to this segment are distended moderately but still under 3 cm maximal dimension. Pattern is suspicious for developing distal small bowel obstruction. APPENDIX: Normal appendix, but localize more in the right flank than right lower quadrant.. PERITONEUM: Limited ascites right lower quadrant. LYMPH NODES: Unremarkable. No enlarged lymph nodes. BLADDER: Unremarkable. REPRODUCTIVE: Unremarkable. BONES: Advanced diffuse multilevel degenerative disease throughout the lumbar spine with grade 1 spondylolisthesis L4-5 with L4 anterior to L5 due to gross facet joint degenerative arthropathy. No spondylolysis identified. Multiple old healed thoracic compression fractures at T6 through T9 vertebral bodies inclusively. OTHER FINDINGS: None. IMPRESSION: 1. Developing distal small bowel obstruction possibly due to stricture or adhesion as discussed above. Limited right lower quadrant ascites. 2. Normal appendix. 3. A few small left renal cyst identified with multiple small renal lucencies too small to characterize bilaterally. 4. Atrophic partially calcified right adrenal gland. 5. Hepatic steatosis with a few scattered granulomata again seen the right lobe superiorly. 6. Cholelithiasis within a distended but thin walled gallbladder. Clinically correlate. Progress - Re-Evaluation Re-evaluation Note: 04/29/18 11:10 NO RECUR VOMITING 04/29/18 11:[address] TRAN D/W DR SINGH C/F PMD WILL ADMIT - Data Reviewed Data Reviewed: Lab, Diagnostic imaging, EKG, Old records Medical Decision Making Medical Decision Making: Plan: * Iv Fluids * Pepcid * Compazine * EKG * CT Abdomen& Pelvis * Blood work * CXR * Urinalysis EKG: * Undetermined rhythm at 70 bpm * Non specific T wave abnormality Disposition Counseled Patient/Family Regarding: Studies Performed, Diagnosis - Disposition Disposition: HOSPITALIZED Disposition Time: 11:12 Condition: STABLE - POA Present On Arrival: Poor Glycemic Control - Clinical Impression Clinical Impression: Bowel obstruction - Scribe Statement The provider has reviewed the documentation as recorded by the Cathy Salazar All medical record entries made by the Sharronibolivia were at my direction and personally dictated by me. I have reviewed the chart and agree that the record accurately reflects my personal performance of the history, physical exam, medical decision making, and the department course for this patient. I have also personally directed, reviewed, and agree with the discharge instructions and disposition.
[2018-04-29] MEDS ORDERED: Sodium Chloride 0.9% 1,000 ML IV ONE (09:02)
[2018-04-29] MEDS ORDERED: Sodium Chloride 0.9% 1,000 ML ONE (09:24)
[2018-04-29 09:32] LABS: BASO # 0.1 K/uL (0.0-0.2); BASO % 0.5 % (0.0-2.0); EOS # 0.1 K/uL (0.0-0.7); EOS % 0.6 % (0.0-4.0); HEMOGLOBIN 12.6 g/dL (11.0-16.0); LYMPH # 1.8 K/uL (1.0-4.3); LYMPH % 16.4 % (20.0-40.0); MEAN CORPUSCULAR HEMOGLOBIN 29.8 pg (27.0-31.0); MEAN CORPUSCULAR HGB CONC 33.1 g/dL (33.0-37.0); MEAN PLATELET VOLUME 8.1 fL (7.2-11.7); MONO # 0.4 K/uL (0.0-0.8); MONO % 3.9 % (0.0-10.0); NEUT # 8.8 K/uL (1.8-7.0); NEUT % 78.6 % (50.0-75.0); RBC 4.24 Mil/uL (3.80-5.20); RED CELL DISTRIBUTION WIDTH 14.6 % (11.5-14.5); WHITE BLOOD COUNT 11.2 K/uL (4.8-10.8)
[2018-04-29 09:58] LABS: ALB/GLOB RATIO 1.4 (1.0-2.1); ALBUMIN 4.3 g/dL (3.5-5.0); ALT/SGPT 14 U/L (9-52); AST/SGOT 32 U/L (14-36); BLOOD UREA NITROGEN 18 mg/dL (7-17); CALCIUM 9.7 mg/dl (8.6-10.4); GFR NON-AFRICAN AMERICAN 59; LIPASE 40 U/L (23-300)
[2018-04-29] MEDS ORDERED: Iohexol 300 100 ML IJ ONE (10:05)
--- NOTE | 2018-04-29 10:24 | RAD ---
Date of service: 04/29/2018 HISTORY: abd pain VOMITING COMPARISON: Portable chest 02/22/2017. FINDINGS: LUNGS: Thickening of the minor fissure is noted versus trace fluid within it. No right-sided infiltrate. Borderline patchy density left perihilar region. PLEURA: No significant pleural effusion identified, no pneumothorax apparent. CARDIOVASCULAR: Calcific atherosclerotic changes are seen related to the thoracic aorta. Normal cardiac size. No pulmonary vascular congestion. OSSEOUS STRUCTURES: No significant abnormalities. VISUALIZED UPPER ABDOMEN: Mammilated right hemidiaphragm reiterated OTHER FINDINGS: None. IMPRESSION: Borderline patchy density left perihilar region. Remaining lung mohan reflect only fluid or thickening of the minor fissure. No pulmonary vascular congestion.
--- NOTE | 2018-04-29 11:04 | CT ---
Date of service: 04/29/2018 PROCEDURE: CT Abdomen and Pelvis with contrast HISTORY: abd pain VOMITING COMPARISON: Abdomen pelvis CT without contrast 02/21/2017. TECHNIQUE: Following the intravenous administration of iodinated contrast material, a CT examination of the abdomen and pelvis was performed from the domes of the diaphragms to the symphysis pubis with reformatted datasets provided in axial, sagittal and coronal planes. Oral contrast was not administered as per referring physician request. Contrast dose: Omnipaque 300, 100 cc Radiation dose: Total exam DLP = 900.26 mGy-cm. This CT exam was performed using one or more of the following dose reduction techniques: Automated exposure control, adjustment of the mA and/or kV according to patient size, and/or use of iterative reconstruction technique. FINDINGS: LOWER THORAX: Cardiomegaly and interstitial pulmonary changes are again seen at the bases with elevated right hemidiaphragm. Small hiatal hernia reiterated with thickened distal esophagus not excluded. Subsegmental atelectasis identified bilaterally. LIVER: Mild hepatic steatosis appreciated. Granulomata again seen at the right lobe superiorly. GALLBLADDER AND BILE DUCTS: Thin walled but distended gallbladder is appreciate with limited cholelithiasis in the lumen once again. PANCREAS: Partially fat replaced but nonfocal pancreas identified once again. SPLEEN: Unremarkable. ADRENALS: A trophic partially calcified right adrenal gland identified with the left adrenal gland normal. KIDNEYS AND URETERS: A few small left renal cyst identified with additional lucencies too small to characterize at both kidneys. No obstructive uropathy bilaterally or solid renal mass appreciable bilaterally. VASCULATURE: Nonaneurysmal abdominal aortic calcific atherosclerotic changes are identified. BOWEL: Left colonic diverticular change are present which are nonacute. There [id number] dilatation of central small bowel loops with the stomach collapsed. Limited retained fecal material is seen within large bowel at the proximal and middle segments with the distal segment collapsed. Fluid is seen the right lower quadrant and there is a transitional distal small bowel loop at the right flank/lower quadrant which appears fecalized and subsequently collapses proximal to the terminal ileum. Loops proximal to this segment are distended moderately but still under 3 cm maximal dimension. Pattern is suspicious for developing distal small bowel obstruction. APPENDIX: Normal appendix, but localize more in the right flank than right lower quadrant.. PERITONEUM: Limited ascites right lower quadrant. LYMPH NODES: Unremarkable. No enlarged lymph nodes. BLADDER: Unremarkable. REPRODUCTIVE: Unremarkable. BONES: Advanced diffuse multilevel degenerative disease throughout the lumbar spine with grade 1 spondylolisthesis L4-5 with L4 anterior to L5 due to gross facet joint degenerative arthropathy. No spondylolysis identified. Multiple old healed thoracic compression fractures at T6 through T9 vertebral bodies inclusively. OTHER FINDINGS: None. IMPRESSION: 1. Developing distal small bowel obstruction possibly due to stricture or adhesion as discussed above. Limited right lower quadrant ascites. 2. Normal appendix. 3. A few small left renal cyst identified with multiple small renal lucencies too small to characterize bilaterally. 4. Atrophic partially calcified right adrenal gland. 5. Hepatic steatosis with a few scattered granulomata again seen the right lobe superiorly. 6. Cholelithiasis within a distended but thin walled gallbladder. Clinically correlate.
[2018-04-29 11:59] LABS: SQUAMOUS EPITHIAL < 1 /hpf (0-5); URINE BACTERIA MOD (<OCC); URINE BILIRUBIN NEGATIVE (NEGATIVE); URINE BLOOD 1+ (NEGATIVE); URINE CLARITY Clear (Clear); URINE COLOR Yellow (YELLOW); URINE GLUCOSE (UA) NORMAL (Normal); URINE LEUKOCYTE ESTERASE 1+ Leu/uL (Negative); URINE PROTEIN 1+ mg/dL (NEGATIVE); URINE UROBILINOGEN NORMAL mg/dL (0.2-1.0)
--- NOTE | 2018-04-29 12:17 | CP.PCM.HP ---
<Myriam Nguyen - Last Filed: 04/29/18 18:25> History of Present Illness - History of Present Illness History of Present Illness: As per family as pt is poor historian 2/2 dementia, 87 years old female with PMHx of dementia, anxiety, HLD, and HTN, hypothyroidism presents to ED for evaluation of multiple episodes of emesis and abdominal pain x1 day. Family reports vomitus consists of food, then became dark brown liquid; denies hematemesis. Family also reports pt complained of abdominal pain this morning. Denies diarrhea, fever like symptoms including chills and sweats, no recent illness. Pmhx: Dementia, HTN, HLD, anxiety, hypothyroidism Pshx: Denies Meds: Klonopin, pravastatin, percocet, protonix, paxil, levothyroxine Allergies: NKDA Sochx: Denies Present on Admission - Present on Admission Any Indicators Present on Admission: No Review of Systems - Review of Systems Systems not reviewed;Unavailable: Dementia Past Patient History - Infectious Disease Hx of Infectious Diseases: None - Past Medical History & Family History Past Medical History?: Yes - Past Social History Smoking Status: Never Smoked - CARDIAC Hx Hypercholesterolemia: Yes Hx Hypertension: Yes - PULMONARY Other/Comment: Hx of upper respiratory infection. - NEUROLOGICAL Hx Alzheimer's Disease: Yes - RENAL Hx Chronic Kidney Disease: No - ENDOCRINE/METABOLIC Hx Hypothyroidism: Yes (on synthroid) - MUSCULOSKELETAL/RHEUMATOLOGICAL Hx Arthritis: Yes - PSYCHIATRIC Hx Anxiety: Yes Hx Depression: Yes Hx Substance Use: No - SURGICAL HISTORY Other/Comment: "knee surgery" - ANESTHESIA Hx Anesthesia: Yes Hx Anesthesia Reactions: No Hx Malignant Hyperthermia: No Meds Allergies/Adverse Reactions: Allergies Allergy/AdvReac Type Severity Reaction Status Date / Time No Known Allergies Allergy Verified 02/20/17 19:47 Physical Exam - Constitutional Appears: Non-toxic, No Acute Distress, Confused - Head Exam Head Exam: ATRAUMATIC, NORMAL INSPECTION, NORMOCEPHALIC - Eye Exam Eye Exam: EOMI, Normal appearance - ENT Exam ENT Exam: Mucous Membranes Moist, Normal Exam Additional comments: poor dentition - Neck Exam Neck exam: Positive for: Normal Inspection - Respiratory Exam Respiratory Exam: Clear to Auscultation Bilateral, NORMAL BREATHING PATTERN. absent: Respiratory Distress - Cardiovascular Exam Cardiovascular Exam: REGULAR RHYTHM. absent: Tachycardia - GI/Abdominal Exam GI & Abdominal Exam: Normal Bowel Sounds, Soft. absent: Distended, Guarding, Tenderness - Extremities Exam Extremities exam: Positive for: normal inspection, pedal edema (1+). Negative for: calf tenderness - Neurological Exam Neurological exam: Altered - Psychiatric Exam Psychiatric exam: Agitated - Skin Skin Exam: Dry, Intact, Normal Color, Warm Results - Vital Signs Recent Vital Signs: Last Vital Signs Temp 98.9 F 04/29/18 12:05 Pulse 78 04/29/18 12:05 Resp 18 04/29/18 12:05 BP 109/59 L 04/29/18 12:05 Pulse Ox 96 04/29/18 12:05 - Labs Result Diagrams: 04/29/18 09:25 04/29/18 09:25 Labs: Laboratory Results - last 24 hr 04/29/18 04/29/18 04/29/18 09:25 09:25 11:41 WBC 11.2 H RBC 4.24 Hgb 12.6 Hct 38.1 MCV 90.0 MCH 29.8 MCHC 33.1 RDW 14.6 H Plt Count 319 MPV 8.1 Neut % (Auto) 78.6 H Lymph % (Auto) 16.4 L Dougherty % (Auto) 3.9 Eos % (Auto) 0.6 Baso % (Auto) 0.5 Neut # (Auto) 8.8 H Lymph # (Auto) 1.8 Dougherty # (Auto) 0.4 Eos # (Auto) 0.1 Baso # (Auto) 0.1 Sodium 142 Potassium 4.5 Chloride 104 Carbon Dioxide 28 Anion Gap 14 BUN 18 H Creatinine 0.9 Est GFR ( Amer) > 60 Est GFR (Non-Af Amer) 59 Random Glucose 159 H D Calcium 9.7 Total Bilirubin 0.5 AST 32 ALT 14 Alkaline Phosphatase 112 Total Protein 7.4 Albumin 4.3 Globulin 3.1 Albumin/Globulin Ratio 1.4 Lipase 40 Urine Color Yellow Urine Clarity Clear Urine pH 5.0 Ur Specific [place] 1.030 Urine Protein 1+ H Urine Glucose (UA) Normal Urine Ketones Negative Urine Blood 1+ H Urine Nitrate Positive H Urine Bilirubin Negative Urine Urobilinogen Normal Ur Leukocyte Esterase 1+ H Urine WBC (Auto) 41 H Urine RBC (Auto) 2 Ur Squamous Epith Cells < 1 Urine Bacteria Mod H Hyaline Casts 3-5 H Assessment & Plan - Assessment and Plan (Free Text) Assessment: 87 year old female w/ pmhx of dementia, HTN, HLD, anxiety and hypothyroidism admitted for evaluation of abdominal pain/multiple episodes of emesis; CT suggestive of developing SBO Plan: Possible SBO -NPO overnight -NS @100 -advance to liquids in morning pending lactate labs/vomiting/abdominal pain -Tylenol 650mg prn pain -antiemetics; zofran prn -IV Abx rocephin 1g qd -no surgical consult indicated at this time Dementia -1:1 as patient is agitated and confused Hypothyroidism -continue home levothyroxine Anxiety -continue home meds klonopin and paxil Ppx -GI ppx: continue home PTX -VTE: heparin 5000 q8 Plan to keep NPO tonight pending lactate, advance to clears in the morning Discussed with Dr. Ziegler -Myriam Nguyen, PGY-1 <Pepe Ziegler H - Last Filed: 04/29/18 19:15> Results - Vital Signs Recent Vital Signs: Last Vital Signs Temp 98.0 F 04/29/18 16:00 Pulse 88 04/29/18 16:00 Resp 20 04/29/18 16:00 BP 155/82 H 04/29/18 16:00 Pulse Ox 95 04/29/18 16:00 - Labs Result Diagrams: 04/29/18 09:25 04/29/18 09:25 Labs: Laboratory Results - last 24 hr 04/29/18 04/29/18 04/29/18 09:25 09:25 11:41 WBC 11.2 H RBC 4.24 Hgb 12.6 Hct 38.1 MCV 90.0 MCH 29.8 MCHC 33.1 RDW 14.6 H Plt Count 319 MPV 8.1 Neut % (Auto) 78.6 H Lymph % (Auto) 16.4 L Dougherty % (Auto) 3.9 Eos % (Auto) 0.6 Baso % (Auto) 0.5 Neut # (Auto) 8.8 H Lymph # (Auto) 1.8 Dougherty # (Auto) 0.4 Eos # (Auto) 0.1 Baso # (Auto) 0.1 Puncture Site pCO2 pO2 HCO3 ABG pH ABG Total CO2 ABG O2 Saturation ABG Base Excess Seth Test ABG Potassium A-a O2 Difference Respiratory Index Glucose Lactate FiO2 Sodium 142 Potassium 4.5 Chloride 104 Carbon Dioxide 28 Anion Gap 14 BUN 18 H Creatinine 0.9 Est GFR ( Amer) > 60 Est GFR (Non-Af Amer) 59 Random Glucose 159 H D Calcium 9.7 Total Bilirubin 0.5 AST 32 ALT 14 Alkaline Phosphatase 112 Troponin I Total Protein 7.4 Albumin 4.3 Globulin 3.1 Albumin/Globulin Ratio 1.4 Lipase 40 Arterial Blood Potassium Urine Color Yellow Urine Clarity Clear Urine pH 5.0 Ur Specific [place] 1.030 Urine Protein 1+ H Urine Glucose (UA) Normal Urine Ketones Negative Urine Blood 1+ H Urine Nitrate Positive H Urine Bilirubin Negative Urine Urobilinogen Normal Ur Leukocyte Esterase 1+ H Urine WBC (Auto) 41 H Urine RBC (Auto) 2 Ur Squamous Epith Cells < 1 Urine Bacteria Mod H Hyaline Casts 3-5 H 04/29/18 04/29/18 15:06 17:03 WBC RBC Hgb Hct MCV MCH MCHC RDW Plt Count MPV Neut % (Auto) Lymph % (Auto) Dougherty % (Auto) Eos % (Auto) Baso % (Auto) Neut # (Auto) Lymph # (Auto) Dougherty # (Auto) Eos # (Auto) Baso # (Auto) Puncture Site Rb pCO2 44 pO2 58 L HCO3 27.4 ABG pH 7.42 ABG Total CO2 29.9 H ABG O2 Saturation 93.3 L ABG Base Excess 3.4 H Seht Test Na ABG Potassium 3.8 A-a O2 Difference 37.0 Respiratory Index 0.6 Glucose 113 H Lactate 2.6 H FiO2 21.0 Sodium 144.0 Potassium Chloride 110.0 H Carbon Dioxide Anion Gap BUN Creatinine Est GFR ( Amer) Est GFR (Non-Af Amer) Random Glucose Calcium Total Bilirubin AST ALT Alkaline Phosphatase Troponin I 0.0320 Total Protein Albumin Globulin Albumin/Globulin Ratio Lipase Arterial Blood Potassium 3.8 Urine Color Urine Clarity Urine pH Ur Specific [place] Urine Protein Urine Glucose (UA) Urine Ketones Urine Blood Urine Nitrate Urine Bilirubin Urine Urobilinogen Ur Leukocyte Esterase Urine WBC (Auto) Urine RBC (Auto) Ur Squamous Epith Cells Urine Bacteria Hyaline Casts Attending/Attestation - Attestation I have personally seen and examined this patient.: Yes I have fully participated in the care of the patient.: Yes I have reviewed all pertinent clinical information: Yes Notes (Text): 04/29/18 19:13 Medical attending: Patient was seen and examined by me with the medical billing assistant Reviewed the CT scan report suggestive of an early / developing SBO We did have the patient as NPO however she is walking on her own and on our exam she did not have any pain even with very deep palpation. Will do IVF Changed to clear liquid diet. If she tolerates diet ok then maybe advance diet more Follow the ABG and lactic acids checks overnight If she does ok then perhaps the CT reading was an overread Pepe Ziegler
[2018-04-29] MEDS ORDERED: Pantoprazole 40 mg EC Tab PO PRN (14:28)
[2018-04-29] MEDS ORDERED: cefTRIAXone IV 1 gm in Dextros 50 ML IVPB SCH (14:30)
[2018-04-29] MEDS: Sodium Chloride 0.9% 1,000 ML IV SCH (14:54)
[2018-04-29 16:26] VITALS: RESP 20
[2018-04-29 17:07] LABS: ARTERIAL BLOOD GAS HCO3 27.4 mmol/L (21-28); ARTERIAL BLOOD GAS O2 SAT 93.3 % (95-98); ARTERIAL BLOOD GAS PCO2 44 mm/Hg (35-45); ARTERIAL BLOOD GAS PH 7.42 (7.35-7.45); ARTERIAL BLOOD GAS PO2 58 mm/Hg (80-100); ARTERIAL BLOOD GAS TCO2 29.9 mmol/L (22-28)
[2018-04-29] MEDS: cefTRIAXone IV 1 gm in Dextros 50 ML IVPB SCH (17:57)
[2018-04-29 20:13] LABS: INR 1.1; PROTHROMBIN TIME 12.4 SECONDS (9.7-12.2)
[2018-04-29] MEDS: Rosuvastatin Calcium 2.5 mg Tab PO SCH (22:17)
[2018-04-30] MEDS: Sodium Chloride 0.9% 1,000 ML IV SCH ×3 (01:30→21:51)
[2018-04-30] MEDS: Levothyroxine 25 MCG TAB PO SCH (05:39)
[2018-04-30 07:29] LABS: BASO % 0.2 % (0.0-2.0); EOS % 0.4 % (0.0-4.0); HEMOGLOBIN 11.4 g/dL (11.0-16.0); LYMPH # 1.2 K/uL (1.0-4.3); LYMPH % 16.5 % (20.0-40.0); MEAN CELL VOLUME 89.5 fL (81.0-99.0); MEAN CORPUSCULAR HEMOGLOBIN 29.9 pg (27.0-31.0); MEAN CORPUSCULAR HGB CONC 33.4 g/dL (33.0-37.0); MONO # 0.5 K/uL (0.0-0.8); MONO % 7.4 % (0.0-10.0); NEUT # 5.3 K/uL (1.8-7.0); NEUT % 75.5 % (50.0-75.0); RBC 3.81 Mil/uL (3.80-5.20); RED CELL DISTRIBUTION WIDTH 14.3 % (11.5-14.5)
--- NOTE | 2018-04-30 07:30 | CP.PCM.PN ---
Subjective - Date & Time of Evaluation Date of Evaluation: 04/30/18 Time of Evaluation: 09:00 - Subjective Subjective: PGY1 medicine progress note for Dr. Mo Patient was seen and examined at bedside. Pt is resting comfortably. Pt examined in presence of son, who states pt is at baseline and conversing with the pt. Pt denies any complaints at this time. Denies bowel movement. Denies fever, chills, chest pain, abdominal pain, n/v/d. ROS limited due to pt's baseline mentation. Objective - Vital Signs/Intake and Output Vital Signs (last 24 hours): Temp Pulse Resp BP Pulse Ox 98.2 F 100 H 20 145/74 97 04/29/18 23:35 04/29/18 23:35 04/29/18 23:35 04/29/18 23:35 04/29/18 23:35 Intake and Output: 04/30/18 04/30/18 06:59 18:59 Intake Total 800 Balance 800 - Medications Medications: Current Medications Acetaminophen (Tylenol 325mg Tab) 650 mg PO Q6 PRN PRN Reason: Pain, moderate (4-7) Clonazepam (Klonopin) 1 mg PO TID [facility] Last Admin: 04/29/18 17:57 Dose: 1 mg Heparin Sodium (Porcine) (Heparin) 5,000 units SC Q8 [facility] Last Admin: 04/30/18 05:39 Dose: 5,000 units Sodium Chloride (Sodium Chloride 0.9%) 1,000 mls @ 100 mls/hr IV .Q10H [facility] Last Admin: 04/30/18 01:30 Dose: 100 mls/hr Ceftriaxone Sodium (Rocephin Iv 1 Gm Duplex) 50 mls @ 100 mls/hr IVPB Q24H [facility]; Protocol Last Admin: 04/29/18 17:57 Dose: 100 mls/hr Levothyroxine Sodium (Synthroid) 25 mcg PO DAILY@0630 [facility] Last Admin: 04/30/18 05:39 Dose: 25 mcg Ondansetron HCl (Zofran Inj) 4 mg IVP Q6H PRN PRN Reason: Nausea/Vomiting Pantoprazole Sodium (Protonix Ec Tab) 40 mg PO DAILY PRN PRN Reason: GI distress Paroxetine HCl (Paxil Cr) 12.5 mg PO DAILY [facility] Pneumococcal Polyvalent Vaccine (Pneumovax 23 Vaccine) 0.5 ml IM .ONCE ONE Stop: 05/02/18 10:01 Rosuvastatin Calcium (Crestor) 2.5 mg PO HS [facility] Last Admin: 04/29/18 22:17 Dose: 2.5 mg - Labs Labs: 04/29/18 09:25 04/29/18 09:25 PT 12.4 SECONDS (9.7-12.2) H 04/29/18 19:56 INR 1.1 04/29/18 19:56 APTT 31 SECONDS (21-34) 04/29/18 19:56 - Additional Findings Additional findings: - Constitutional Appears: Non-toxic, No Acute Distress - Head Exam Head Exam: ATRAUMATIC, NORMAL INSPECTION, NORMOCEPHALIC - Eye Exam Eye Exam: EOMI, Normal appearance - ENT Exam ENT Exam: Mucous Membranes Moist, Normal Exam Additional comments: poor dentition - Neck Exam Neck exam: Positive for: Normal Inspection - Respiratory Exam Respiratory Exam: Clear to Auscultation Bilateral, NORMAL BREATHING PATTERN. absent: Respiratory Distress - Cardiovascular Exam Cardiovascular Exam: REGULAR RHYTHM. normal S1 and S2. absent: Tachycardia - GI/Abdominal Exam GI & Abdominal Exam: Normal Bowel Sounds, Soft. absent: Distended, Guarding, Tenderness on deep palpation - Extremities Exam Extremities exam: Positive for: normal inspection. Trace pedal edema. Negative for: calf tenderness - Neurological Exam Neurological exam: Alert - Psychiatric Exam Psychiatric exam: Normal mood - Skin Skin Exam: Dry, Intact, Normal Color, Warm Assessment and Plan - Assessment and Plan (Free Text) Assessment: 87 year old Faroese speaking female w/ pmhx of dementia, HTN, HLD, anxiety and hypothyroidism admitted for evaluation of abdominal pain/multiple episodes of emesis; CT suggestive of developing SBO Plan: Potential early SBO Abd/pelv Ct with contrast shows1. Developing distal small bowel obstruction possibly due to stricture or adhesion as discussed above. Limited right lower quadrant ascites. 2. Normal appendix. 3. A few small left renal cyst identified with multiple small renal lucencies too small to characterize bilaterally. 4. Atrophic partially calcified right adrenal gland. 5. Hepatic steatosis with a few scattered granulomata again seen the right lobe superiorly. 6. Cholelithiasis within a distended but thin walled gallbladder. Lactate has normalized (1.0) after fluids Continue NS IVF at 100 mL/hr Tylenol 650mg prn pain Zofran 4 mg IVP q6h prn n/v Rocephin 1g IVPB daily No surgical consultation needed at this time, as pt has been tolerating PO, awaiting bowel movements Senokat daily Miralax daily Abdominal X-ray shows borderline dilated small bowel loops, which can be seen in SBO. Will continue to advance diet as tolerated. UTI UA shows positive nitrate, Leukocyte esterase, WBCs Urine culture prelim shows gram negative lavonne growth Pt is on rocephin 1g IVPB daily F/u final culture results Dementia 1:1 as patient has confusion with occasional agitation at baseline Hypothyroidism Continue home levothyroxine Anxiety Continue home meds klonopin and paxil Ppx GI ppx: continue home PTX VTE: heparin 5000 q8 PT/OT Case discussed with Dr. Chely Appiah PGY1
[2018-04-30 07:46] LABS: ALB/GLOB RATIO 1.3 (1.0-2.1); ALBUMIN 3.6 g/dL (3.5-5.0); ALT/SGPT 13 U/L (9-52); AST/SGOT 34 U/L (14-36); BLOOD UREA NITROGEN 13 mg/dL (7-17); CALCIUM 8.5 mg/dl (8.6-10.4); GFR NON-AFRICAN AMERICAN > 60
[2018-04-30] MEDS ORDERED: Pantoprazole 40 mg EC Tab PO PRN (08:00)
[2018-04-30] MEDS: POLYETHYLENE GLYCOL 3350 17 GM/Dose PACKET PO SCH (12:24)
--- NOTE | 2018-04-30 14:27 | CARD ---
APPROVED REPORT Date of service: 04/29/2018 EKG Measurement Heart [id number] <Conclusion> probably sinus rhythm Nonspecific T wave abnormality Abnormal ECG baseline artifacts.
--- NOTE | 2018-04-30 15:30 | RAD ---
Date of service: 04/30/2018 HISTORY: r/o sbo COMPARISON: CT scan of the abdomen pelvis dated 04/29/2018. FINDINGS: BOWEL: Borderline dilated small bowel loops in stepladder configuration. No free air. BONES: Degenerative changes. OTHER FINDINGS: None. IMPRESSION: Borderline dilated small bowel loops instability configuration which can be seen in the setting of small-bowel obstruction.
[2018-04-30] MEDS: cefTRIAXone IV 1 gm in Dextros 50 ML IVPB SCH (16:17)
[2018-04-30] MEDS: Rosuvastatin Calcium 2.5 mg Tab PO SCH (21:32)
[2018-05-01] MEDS: Levothyroxine 25 MCG TAB PO SCH (05:31)
[2018-05-01] MEDS: Sodium Chloride 0.9% 1,000 ML IV SCH ×2 (05:50→15:42)
--- NOTE | 2018-05-01 06:44 | CP.PCM.PN ---
Subjective - Date & Time of Evaluation Date of Evaluation: 05/01/18 Time of Evaluation: 07:35 - Subjective Subjective: PGY1 medicine progress note for Dr. Mo Patient was seen and examined at bedside. Pt is resting comfortably. Pt is lethargic but arousable. Denies bowel movement. ROS limited due to pt's baseline mentation. Objective - Vital Signs/Intake and Output Vital Signs (last 24 hours): Temp Pulse Resp BP Pulse Ox 98.4 F 82 20 148/84 98 05/01/18 00:00 05/01/18 00:00 05/01/18 00:00 05/01/18 00:00 05/01/18 00:00 Intake and Output: 04/30/18 05/01/18 18:59 06:59 Intake Total 820 1200 Balance 820 1200 - Medications Medications: Current Medications Acetaminophen (Tylenol 325mg Tab) 650 mg PO Q6 PRN PRN Reason: Pain, moderate (4-7) Clonazepam (Klonopin) 1 mg PO TID [facility] Last Admin: 04/30/18 17:28 Dose: 1 mg Heparin Sodium (Porcine) (Heparin) 5,000 units SC Q8 [facility] Last Admin: 05/01/18 05:31 Dose: 5,000 units Sodium Chloride (Sodium Chloride 0.9%) 1,000 mls @ 100 mls/hr IV .Q10H [facility] Last Admin: 05/01/18 05:50 Dose: 100 mls/hr Ceftriaxone Sodium (Rocephin Iv 1 Gm Duplex) 50 mls @ 100 mls/hr IVPB Q24H [facility]; Protocol Last Admin: 04/30/18 16:17 Dose: 100 mls/hr Influenza Virus Vaccine (Flucelvax Quad [id number] Syr) 60 mcg IM .ONCE ONE Stop: 05/01/18 10:01 Levothyroxine Sodium (Synthroid) 25 mcg PO DAILY@0630 [facility] Last Admin: 05/01/18 05:31 Dose: 25 mcg Ondansetron HCl (Zofran Inj) 4 mg IVP Q6H PRN PRN Reason: Nausea/Vomiting Pantoprazole Sodium (Protonix Ec Tab) 40 mg PO DAILY PRN PRN Reason: GI distress Paroxetine HCl (Paxil Cr) 12.5 mg PO DAILY [facility] Last Admin: 04/30/18 10:12 Dose: 12.5 mg Pneumococcal Polyvalent Vaccine (Pneumovax 23 Vaccine) 0.5 ml IM .ONCE ONE Stop: 05/02/18 10:01 Polyethylene Glycol (Miralax) 17 gm PO DAILY [facility] Last Admin: 04/30/18 12:24 Dose: 17 gm Rosuvastatin Calcium (Crestor) 2.5 mg PO HS [facility] Last Admin: 04/30/18 21:32 Dose: 2.5 mg Sennosides (Senokot Tab) 8.6 mg PO DAILY [facility] Last Admin: 04/30/18 12:25 Dose: 8.6 mg - Labs Labs: 04/30/18 07:04 04/30/18 07:04 PT 12.4 SECONDS (9.7-12.2) H 04/29/18 19:56 INR 1.1 04/29/18 19:56 APTT 31 SECONDS (21-34) 04/29/18 19:56 - Additional Findings Additional findings: - Constitutional Appears: Non-toxic, No Acute Distress - Head Exam Head Exam: ATRAUMATIC, NORMAL INSPECTION, NORMOCEPHALIC - Eye Exam Eye Exam: EOMI, Normal appearance - ENT Exam ENT Exam: Mucous Membranes Moist, Normal Exam. Poor dentition. - Neck Exam Neck exam: Positive for: Normal Inspection - Respiratory Exam Respiratory Exam: Clear to Auscultation Bilateral, NORMAL BREATHING PATTERN. absent: Respiratory Distress, rales, wheezes - Cardiovascular Exam Cardiovascular Exam: REGULAR RHYTHM. normal S1, more prominent s2. absent: Tachycardia - GI/Abdominal Exam GI & Abdominal Exam: Bowel sounds are more active in upper quadrants when compared to lower quadrants. Soft. Epigastric distension is more prominent than yesterday. absent: Rigidity, Guarding, Tenderness on deep palpation - Extremities Exam Extremities exam: Positive for: normal inspection. Trace pedal edema. Negative for: calf tenderness - Neurological Exam Neurological exam: Alert - Psychiatric Exam Psychiatric exam: Normal mood - Skin Skin Exam: Dry, Intact, Normal Color, Warm Assessment and Plan - Assessment and Plan (Free Text) Assessment: 87 year old Slovenian speaking female w/ pmhx of dementia, HTN, HLD, anxiety and hypothyroidism admitted for evaluation of abdominal pain/multiple episodes of emesis; CT suggestive of developing SBO Plan: Potential early SBO Abd/pelv Ct with contrast shows1. Developing distal small bowel obstruction possibly due to stricture or adhesion as discussed above. Limited right lower quadrant ascites. 2. Normal appendix. 3. A few small left renal cyst identified with multiple small renal lucencies too small to characterize bilaterally. 4. Atrophic partially calcified right adrenal gland. 5. Hepatic steatosis with a few scattered granulomata again seen the right lobe superiorly. 6. Cholelithiasis within a distended but thin walled gallbladder. Abdominal X-ray (04/30) shows borderline dilated small bowel loops, which can be seen in SBO. Abdominal CT without contrast (05/01) shows Nonspecific appearance of small bowel with fluid levels evident. Mild wall thickening involving the ileum. Appearance suspicious for enteritis. Early or partial obstruction is not favored. Correlate clinically. Small perihepatic and perisplenic ascites. Small pelvic fluid. Diverticulosis without CT evidence of acute diverticulitis. 19 mm left renal hypodense lesion measures approximately 19 HU, higher than expected for simple cyst. Nonobstructing 2 mm left lower pole calculus. Cholelithiasis. Carlos cification of the right adrenal gland which may be the result of prior hemorrhage or infectious/inflammatory process. Trace bilateral pleural effusions. Bibasilar atelectasis/infiltrates. Distal esophageal wall thickening/small hiatal hernia. Lactate normalized (1.0) after fluids Tylenol 650mg prn pain Zofran 4 mg IVP q6h prn n/v Rocephin 1g IVPB daily Surgery, Dr. Zhou, consulted. Recommendations appreciated. Senokat daily Miralax daily Will continue to monitor for bowel movements. NPO until BM. UTI UA shows positive nitrate, Leukocyte esterase, WBCs Urine culture shows gram negative lavonne growth sensitive to rocephin <=1 ROHAN. Pt Rocephin 1g IVPB daily Dementia 1:1 as patient has confusion with occasional agitation at baseline Hypothyroidism Continue home levothyroxine Anxiety Continue home Paxil Will reduce home Klonopin from 1 mg PO TID to 0.5 mg PO BID, with hold parameters for lethargy Ppx GI ppx: continue home PTX VTE: heparin 5000 q8 PT/OT Case discussed with Dr. Chely Appiah PGY1
[2018-05-01 07:23] LABS: BASO % 0.5 % (0.0-2.0); EOS # 0.1 K/uL (0.0-0.7); EOS % 1.5 % (0.0-4.0); LYMPH # 1.6 K/uL (1.0-4.3); LYMPH % 28.3 % (20.0-40.0); MEAN CELL VOLUME 89.8 fL (81.0-99.0); MEAN CORPUSCULAR HEMOGLOBIN 30.1 pg (27.0-31.0); MEAN CORPUSCULAR HGB CONC 33.6 g/dL (33.0-37.0); MEAN PLATELET VOLUME 7.9 fL (7.2-11.7); MONO # 0.6 K/uL (0.0-0.8); MONO % 9.8 % (0.0-10.0); NEUT # 3.4 K/uL (1.8-7.0); NEUT % 59.9 % (50.0-75.0); NRBC % 0.1 % (0.0-2.0); RBC 3.65 Mil/uL (3.80-5.20); RED CELL DISTRIBUTION WIDTH 14.4 % (11.5-14.5); WHITE BLOOD COUNT 5.7 K/uL (4.8-10.8)
[2018-05-01 07:56] LABS: ALB/GLOB RATIO 1.3 (1.0-2.1); ALBUMIN 3.3 g/dL (3.5-5.0); ALT/SGPT 16 U/L (9-52); AST/SGOT 34 U/L (14-36); BLOOD UREA NITROGEN 11 mg/dL (7-17); CALCIUM 8.1 mg/dl (8.6-10.4); GFR NON-AFRICAN AMERICAN > 60
[2018-05-01] MEDS ORDERED: Influenza Vaccine 60 mcg/0.5 mL SYR (4YR UP) IM ONE (10:00)
[2018-05-01] MEDS: POLYETHYLENE GLYCOL 3350 17 GM/Dose PACKET PO SCH (10:06)
--- NOTE | 2018-05-01 10:47 | CP.PCM.CON ---
History of Present Illness - History of Present Illness History of Present Illness: Consult note for Dr. Zhou. HPI: Patient is a 87 year old female with PMHx of dementia, HTN, HLD, anxiety, hypothyroidis. History was obtained via chart review, as patient is demented at baseline. Surgery was consulted for possible early SBO. On day of admission (04/29/18), patient presented with multiple episodes of emesis and abdominal pain x1 day. As per H&P note, the family reported vomitus consisting of food which gradually turned into dark brown liquid. Patient has not had a bowel movement since admission, however she has reportedly been passing flatus. Unable to obtain further history secondary to dementia. Pmhx: Dementia, HTN, HLD, anxiety, hypothyroidism Pshx: Denies Meds: Klonopin, pravastatin, percocet, protonix, paxil, levothyroxine Allergies: NKDA Sochx: Denies Review of Systems - Review of Systems Systems not reviewed;Unavailable: Dementia Past Patient History - Infectious Disease Hx of Infectious Diseases: None - Past Medical History & Family History Past Medical History?: Yes - Past Social History Smoking Status: Never Smoked - CARDIAC Hx Hypercholesterolemia: Yes Hx Hypertension: Yes - PULMONARY Other/Comment: Hx of upper respiratory infection. - NEUROLOGICAL Hx Alzheimer's Disease: Yes - HEENT Hx HEENT Problems: No - RENAL Hx Chronic Kidney Disease: No - ENDOCRINE/METABOLIC Hx Hypothyroidism: Yes (on synthroid) - HEMATOLOGICAL/ONCOLOGICAL Hx Blood Disorders: No - INTEGUMENTARY Hx Dermatological Problems: No - MUSCULOSKELETAL/RHEUMATOLOGICAL Hx Arthritis: Yes - GASTROINTESTINAL Hx Gastrointestinal Disorders: No - GENITOURINARY/GYNECOLOGICAL Hx Genitourinary Disorders: No - PSYCHIATRIC Hx Anxiety: Yes Hx Depression: Yes Hx Substance Use: No - SURGICAL HISTORY Other/Comment: "knee surgery" - ANESTHESIA Hx Anesthesia: Yes Hx Anesthesia Reactions: No Hx Malignant Hyperthermia: No Meds Allergies/Adverse Reactions: Allergies Allergy/AdvReac Type Severity Reaction Status Date / Time No Known Allergies Allergy Verified 02/20/17 19:47 - Medications Medications: Current Medications Acetaminophen (Tylenol 325mg Tab) 650 mg PO Q6 PRN PRN Reason: Pain, moderate (4-7) Clonazepam (Klonopin) 1 mg PO TID GRAY Last Admin: 05/01/18 09:55 Dose: 1 mg Heparin Sodium (Porcine) (Heparin) 5,000 units SC Q8 [facility] Last Admin: 05/01/18 05:31 Dose: 5,000 units Sodium Chloride (Sodium Chloride 0.9%) 1,000 mls @ 100 mls/hr IV .Q10H [facility] Last Admin: 05/01/18 05:50 Dose: 100 mls/hr Ceftriaxone Sodium (Rocephin Iv 1 Gm Duplex) 50 mls @ 100 mls/hr IVPB Q24H [facility]; Protocol Last Admin: 04/30/18 16:17 Dose: 100 mls/hr Levothyroxine Sodium (Synthroid) 25 mcg PO DAILY@0630 [facility] Last Admin: 05/01/18 05:31 Dose: 25 mcg Ondansetron HCl (Zofran Inj) 4 mg IVP Q6H PRN PRN Reason: Nausea/Vomiting Pantoprazole Sodium (Protonix Ec Tab) 40 mg PO DAILY PRN PRN Reason: GI distress Paroxetine HCl (Paxil Cr) 12.5 mg PO DAILY [facility] Last Admin: 05/01/18 10:06 Dose: 12.5 mg Pneumococcal Polyvalent Vaccine (Pneumovax 23 Vaccine) 0.5 ml IM .ONCE ONE Stop: 05/02/18 10:01 Polyethylene Glycol (Miralax) 17 gm PO DAILY [facility] Last Admin: 05/01/18 10:06 Dose: Not Given Rosuvastatin Calcium (Crestor) 2.5 mg PO HS [facility] Last Admin: 04/30/18 21:32 Dose: 2.5 mg Sennosides (Senokot Tab) 8.6 mg PO DAILY [facility] Last Admin: 05/01/18 10:06 Dose: Not Given Physical Exam - Constitutional Appears: Non-toxic, No Acute Distress - Head Exam Head Exam: ATRAUMATIC, NORMOCEPHALIC - Eye Exam Eye Exam: Normal appearance - ENT Exam ENT Exam: Mucous Membranes Moist - Neck Exam Neck exam: Positive for: Full Rom, Normal Inspection - Respiratory Exam Respiratory Exam: Clear to Auscultation Bilateral, NORMAL BREATHING PATTERN. absent: Rales, Rhonchi, Wheezes, Respiratory Distress - Cardiovascular Exam Cardiovascular Exam: REGULAR RHYTHM, +S1, +S2 - GI/Abdominal Exam GI & Abdominal Exam: Normal Bowel Sounds, Soft. absent: Distended, Guarding, Rebound, Rigid, Tenderness - Extremities Exam Extremities exam: Positive for: normal inspection, pedal pulses present. Negative for: calf tenderness - Neurological Exam Additional comments: Sleeping, but arousable. Confused at baseline - Skin Skin Exam: Dry, Intact, Warm Results - Vital Signs Recent Vital Signs: Last Vital Signs Temp 98.5 F 05/01/18 09:00 Pulse 94 H 05/01/18 09:00 Resp 20 05/01/18 09:00 BP 145/73 05/01/18 09:00 Pulse Ox 96 05/01/18 09:00 - Labs Result Diagrams: 05/01/18 07:15 05/01/18 07:15 Labs: Laboratory Results - last 24 hr 04/30/18 04/30/18 05/01/18 08:02 11:10 07:15 WBC 5.7 RBC 3.65 L Hgb 11.0 Hct 32.7 L MCV 89.8 MCH 30.1 MCHC 33.6 RDW 14.4 Plt Count 250 MPV 7.9 Neut % (Auto) 59.9 Lymph % (Auto) 28.3 [place] % (Auto) 9.8 Eos % (Auto) 1.5 Baso % (Auto) 0.5 Neut # (Auto) 3.4 Lymph # (Auto) 1.6 [place] # (Auto) 0.6 Eos # (Auto) 0.1 Baso # (Auto) 0.0 Sodium Potassium Chloride Carbon Dioxide Anion Gap BUN Creatinine Est GFR ( Amer) Est GFR (Non-Af Amer) POC Glucose (mg/dL) 136 H 123 H Random Glucose Calcium Total Bilirubin AST ALT Alkaline Phosphatase Total Protein Albumin Globulin Albumin/Globulin Ratio 05/01/18 07:15 WBC RBC Hgb Hct MCV MCH MCHC RDW Plt Count MPV Neut % (Auto) Lymph % (Auto) [place] % (Auto) Eos % (Auto) Baso % (Auto) Neut # (Auto) Lymph # (Auto) [place] # (Auto) Eos # (Auto) Baso # (Auto) Sodium 142 Potassium 3.6 Chloride 108 H Carbon Dioxide 27 Anion Gap 10 BUN 11 Creatinine 0.7 Est GFR ( Amer) > 60 Est GFR (Non-Af Amer) > 60 POC Glucose (mg/dL) Random Glucose 114 H Calcium 8.1 L Total Bilirubin 0.5 AST 34 ALT 16 Alkaline Phosphatase 80 Total Protein 5.7 L Albumin 3.3 L Globulin 2.5 Albumin/Globulin Ratio 1.3 Assessment & Plan - Assessment and Plan (Free Text) Assessment: 87 year old female with PMHx of dementia, HTN, HLD, anxiety, hypothyroidis admitted for possible early SBO. Plan: -Patient given dulcolax KS and had a BM at 13:30 -abdomen soft, non-tender, non-distended, normal bowel function -May advance to regular diet -No surgical intervention indicated at this time. -re-consult as necessary Xray Abd 04/29/18: Borderline dilated small bowel loops instability which can be seen in the setting of small bowel obstruction. CT abdomen w/ contrast 04/29/18: Developing distal small bowel obtsruction possibly due to stricture or adhesion. CT abdoment w/o contrast 05/01/18:Non specific appearance of small bowel with fluid levels evident. Mild wall thickening of the ileum. Appearance suspicious for enteritis. Early or partial obstruction is not favored. Correlate clinically. case d/w Dr. Winnie Mills, PGY-1
--- NOTE | 2018-05-01 11:26 | CT ---
PROCEDURE: CT Abdomen and Pelvis without IV contrast. HISTORY: distension, r/o sbo COMPARISON: CT abdomen and pelvis with contrast performed 04/29/18 TECHNIQUE: Contiguous axial images of the abdomen and pelvis. Oral contrast was administered. No IV contrast given. Coronal and Sagittal reformats generated and reviewed. Radiation dose: Total exam DLP = 990.53 mGy-cm. This CT exam was performed using one or more of the following dose reduction techniques: Automated exposure control, adjustment of the mA and/or kV according to patient size, and/or use of iterative reconstruction technique. FINDINGS: There is limited evaluation of the solid organs without the administration of IV contrast. Examination limited by patient motion as well as inability to elevate arms. LOWER THORAX: Trace bilateral pleural effusions. Bibasilar atelectasis/infiltrates. Distal esophageal wall thickening/small hiatal hernia. LIVER: Unremarkable unenhanced appearance. GALLBLADDER AND BILE DUCTS: 5 mm gallstone within the gallbladder. PANCREAS: Fatty atrophy of the pancreas. SPLEEN: Unremarkable unenhanced appearance. ADRENALS: Calcification of the right adrenal gland which may be the result of prior hemorrhage or infectious/inflammatory process. The left adrenal gland appears unremarkable. KIDNEYS AND URETERS: No hydronephrosis or obstructing renal calculus. 19 mm left renal hypodense lesion measures approximately 19 HU, higher than expected for simple cyst. Nonobstructing 2 mm left lower pole calculus. BLADDER: The urinary bladder appears unremarkable. REPRODUCTIVE: Uterus is present. APPENDIX: The appendix appears within normal limits of caliber. No secondary signs of acute appendicitis. BOWEL: The stomach is nondistended. Nonspecific appearance of small bowel with fluid levels evident. Mild wall thickening involving the ileum. Appearance suspicious for enteritis. Diverticulosis without CT evidence of acute diverticulitis. PERITONEUM: Small perihepatic and perisplenic ascites. Small pelvic fluid. No definite free air. LYMPH NODES: No bulky lymphadenopathy identified. VASCULATURE: No aortic aneurysm. Atherosclerotic calcifications of the aorta and branches. BONES: Osseous demineralization. Degenerative changes. OTHER FINDINGS: None. IMPRESSION: Nonspecific appearance of small bowel with fluid levels evident. Mild wall thickening involving the ileum. Appearance suspicious for enteritis. Correlate clinically. Early or partial obstruction is not favored. Correlate clinically. Small perihepatic and perisplenic ascites. Small pelvic fluid. Diverticulosis without CT evidence of acute diverticulitis. 19 mm left renal hypodense lesion measures approximately 19 HU, higher than expected for simple cyst. Nonobstructing 2 mm left lower pole calculus. Cholelithiasis. Calcification of the right adrenal gland which may be the result of prior hemorrhage or infectious/inflammatory process. Trace bilateral pleural effusions. Bibasilar atelectasis/infiltrates. Distal esophageal wall thickening/small hiatal hernia. Additional findings as above.
[2018-05-01] MEDS: cefTRIAXone IV 1 gm in Dextros 50 ML IVPB SCH (16:19)
[2018-05-01] MEDS: Rosuvastatin Calcium 2.5 mg Tab PO SCH (21:26)
[2018-05-02] MEDS: Sodium Chloride 0.9% 1,000 ML IV SCH ×4 (00:19→12:22)
[2018-05-02] MEDS: Levothyroxine 25 MCG TAB PO SCH (06:04)
[2018-05-02 07:07] LABS: BASO % 0.3 % (0.0-2.0); EOS # 0.1 K/uL (0.0-0.7); EOS % 1.8 % (0.0-4.0); HEMOGLOBIN 10.1 g/dL (11.0-16.0); LYMPH # 1.3 K/uL (1.0-4.3); LYMPH % 19.4 % (20.0-40.0); MEAN CORPUSCULAR HEMOGLOBIN 29.3 pg (27.0-31.0); MEAN CORPUSCULAR HGB CONC 32.5 g/dL (33.0-37.0); MEAN PLATELET VOLUME 8.2 fL (7.2-11.7); MONO # 0.5 K/uL (0.0-0.8); MONO % 6.9 % (0.0-10.0); NEUT # 4.9 K/uL (1.8-7.0); NEUT % 71.6 % (50.0-75.0); RBC 3.46 Mil/uL (3.80-5.20); RED CELL DISTRIBUTION WIDTH 14.1 % (11.5-14.5); WHITE BLOOD COUNT 6.9 K/uL (4.8-10.8)
[2018-05-02 07:32] LABS: ALB/GLOB RATIO 1.3 (1.0-2.1); ALBUMIN 3.2 g/dL (3.5-5.0); ALT/SGPT 21 U/L (9-52); AST/SGOT 36 U/L (14-36); BLOOD UREA NITROGEN 11 mg/dL (7-17); CALCIUM 7.8 mg/dl (8.6-10.4); GFR NON-AFRICAN AMERICAN > 60
[2018-05-02] MEDS: POLYETHYLENE GLYCOL 3350 17 GM/Dose PACKET PO SCH (09:27)
[2018-05-02] MEDS ORDERED: Pneumococcal 23-Valent Vaccine IM ONE (10:00)
[2018-05-02] MEDS ORDERED: Potassium Chloride 20 mEq ER Tab PO SCH (10:00)
--- NOTE | 2018-05-02 13:18 | CP.PCM.DIS ---
Provider - Provider Date of Admission: 04/29/18 11:13 Attending physician: Pepe Ziegler DO Consults: 04/29/18 13:12 Case Management Referral Routine Comment: Physician Instructions: home care service Reason For Exam: home care service Reason for Referral: Communications Maintainer Nan 04/29/18 16:41 Palliative Care [Nursing Referral for Palliative Care] Routine Comment: Physician Instructions: Reason For Exam: Palliative assessment score 2 05/01/18 09:23 General Surgery Consult Routine Comment: Consulting Provider: Best Zhou Jr. Consulting Physician: Best Zhou Jr. Reason for Consult: abdominal distension, r/o sbo 05/02/18 09:54 Communications Maintainer [Case Management Referral] Routine Comment: Physician Instructions: Reason For Exam: Reason for Referral: Discharge Planning Time Spent in preparation of Discharge (in minutes): 35 Hospital Course - Lab Results Lab Results: Micro Results 04/29/18 11:41 Urine,Catheterized Urine Culture - Final Escherichia Coli Most Recent Lab Values WBC 6.9 K/uL (4.8-10.8) 05/02/18 06:38 RBC 3.46 Mil/uL (3.80-5.20) L 05/02/18 06:38 Hgb 10.1 g/dL (11.0-16.0) L 05/02/18 06:38 Hct 31.2 % (34.0-47.0) L 05/02/18 06:38 MCV 90.0 fL (81.0-99.0) 05/02/18 06:38 MCH 29.3 pg (27.0-31.0) 05/02/18 06:38 MCHC 32.5 g/dL (33.0-37.0) L 05/02/18 06:38 RDW 14.1 % (11.5-14.5) 05/02/18 06:38 Plt Count 251 K/uL (130-400) 05/02/18 06:38 MPV 8.2 fL (7.2-11.7) 05/02/18 06:38 Neut % (Auto) 71.6 % (50.0-75.0) 05/02/18 06:38 Lymph % (Auto) 19.4 % (20.0-40.0) L 05/02/18 06:38 [place] % (Auto) 6.9 % (0.0-10.0) 05/02/18 06:38 Eos % (Auto) 1.8 % (0.0-4.0) 05/02/18 06:38 Baso % (Auto) 0.3 % (0.0-2.0) 05/02/18 06:38 Neut # (Auto) 4.9 K/uL (1.8-7.0) 05/02/18 06:38 Lymph # (Auto) 1.3 K/uL (1.0-4.3) 05/02/18 06:38 [place] # (Auto) 0.5 K/uL (0.0-0.8) 05/02/18 06:38 Eos # (Auto) 0.1 K/uL (0.0-0.7) 05/02/18 06:38 Baso # (Auto) 0.0 K/uL (0.0-0.2) 05/02/18 06:38 PT 12.4 SECONDS (9.7-12.2) H 04/29/18 19:56 INR 1.1 04/29/18 19:56 APTT 31 SECONDS (21-34) 04/29/18 19:56 Puncture Site Rb 04/29/18 17:03 pCO2 44 mm/Hg (35-45) 04/29/18 17:03 pO2 58 mm/Hg (80-100) L 04/29/18 17:03 HCO3 27.4 mmol/L (21-28) 04/29/18 17:03 ABG pH 7.42 (7.35-7.45) 04/29/18 17:03 ABG Total CO2 29.9 mmol/L (22-28) H 04/29/18 17:03 ABG O2 Saturation 93.3 % (95-98) L 04/29/18 17:03 ABG Base Excess 3.4 mmol/L (-2.0-3.0) H 04/29/18 17:03 Seth Test Na 04/29/18 17:03 ABG Potassium 3.8 mmol/L (3.6-5.2) 04/29/18 17:03 A-a O2 Difference 37.0 mm/Hg 04/29/18 17:03 Respiratory Index 0.6 04/29/18 17:03 Sodium 144.0 mmol/l (132-148) 04/29/18 17:03 Chloride 110.0 mmol/L (98-107) H 04/29/18 17:03 Glucose 113 mg/dl (65-105) H 04/29/18 17:03 Lactate 2.6 mmol/L (0.7-2.1) H 04/29/18 17:03 FiO2 21.0 % 04/29/18 17:03 Sodium 142 mmol/L (132-148) 05/02/18 06:38 Potassium 3.4 mmol/L (3.6-5.2) L 05/02/18 06:38 Chloride 111 mmol/L (98-107) H 05/02/18 06:38 Carbon Dioxide 25 mmol/L (22-30) 05/02/18 06:38 Anion Gap 9 (10-20) L 05/02/18 06:38 BUN 11 mg/dL (7-17) 05/02/18 06:38 Creatinine 0.8 mg/dL (0.7-1.2) 05/02/18 06:38 Est GFR ( Amer) > 60 05/02/18 06:38 Est GFR (Non-Af Amer) > 60 05/02/18 06:38 POC Glucose (mg/dL) 123 mg/dL (65-110) H 04/30/18 11:10 Random Glucose 88 mg/dL (65-105) D 05/02/18 06:38 Lactic Acid 1.0 mmol/L (0.7-2.1) 04/30/18 07:07 Calcium 7.8 mg/dl (8.6-10.4) L 05/02/18 06:38 Phosphorus 2.3 mg/dL (2.5-4.5) L 05/02/18 06:38 Magnesium 1.6 mg/dL (1.6-2.3) 05/02/18 06:38 Total Bilirubin 0.4 mg/dL (0.2-1.3) 05/02/18 06:38 AST 36 U/L (14-36) 05/02/18 06:38 ALT 21 U/L (9-52) 05/02/18 06:38 Alkaline Phosphatase 76 U/L (38-126) 05/02/18 06:38 Troponin I 0.0320 ng/mL (0.00-0.120) 04/29/18 15:06 Total Protein 5.8 g/dL (6.3-8.3) L 05/02/18 06:38 Albumin 3.2 g/dL (3.5-5.0) L 05/02/18 06:38 Globulin 2.6 gm/dL (2.2-3.9) 05/02/18 06:38 Albumin/Globulin Ratio 1.3 (1.0-2.1) 05/02/18 06:38 Lipase 40 U/L (23-300) 04/29/18 09:25 Arterial Blood Potassium 3.8 mmol/L (3.6-5.2) 04/29/18 17:03 Urine Color Yellow (YELLOW) 04/29/18 11:41 Urine Clarity Clear (Clear) 04/29/18 11:41 Urine pH 5.0 (5.0-8.0) 04/29/18 11:41 Ur Specific [place] 1.030 (1.003-1.030) 04/29/18 11:41 Urine Protein 1+ mg/dL (NEGATIVE) H 04/29/18 11:41 Urine Glucose (UA) Normal mg/dL (Normal) 04/29/18 11:41 Urine Ketones Negative mg/dL (NEGATIVE) 04/29/18 11:41 Urine Blood 1+ (NEGATIVE) H 04/29/18 11:41 Urine Nitrate Positive (NEGATIVE) H 04/29/18 11:41 Urine Bilirubin Negative (NEGATIVE) 04/29/18 11:41 Urine Urobilinogen Normal mg/dL (0.2-1.0) 04/29/18 11:41 Ur Leukocyte Esterase 1+ [place]/uL (Negative) H 04/29/18 11:41 Urine WBC (Auto) 41 /hpf (0-5) H 04/29/18 11:41 Urine RBC (Auto) 2 /hpf (0-3) 04/29/18 11:41 Ur Squamous Epith Cells < 1 /hpf (0-5) 04/29/18 11:41 Urine Bacteria Mod (<OCC) H 04/29/18 11:41 Hyaline Casts 3-5 /lpf (0-2) H 04/29/18 11:41 - Hospital Course Hospital Course: On admission: As per family as pt is poor historian 2/2 dementia, 87 years old female with PMHx of dementia, anxiety, HLD, and HTN, hypothyroidism presents to ED for evaluation of multiple episodes of emesis and abdominal pain x1 day. Family reports vomitus consists of food, then became dark brown liquid; denies hematemesis. Family also reports pt complained of abdominal pain this morning. Denies diarrhea, fever like symptoms including chills and sweats, no recent illness. Hospital course: Abd/pelv Ct with contrast shows 1. Developing distal small bowel obstruction possibly due to stricture or adhesion. Pt's lactate improved with NS IVF. She was started on her home medications. UA shows UTI, Urine culture shows Ecoli sensitive to Rocephin. Pt was started on Rocephin. Possible SBO was managed medically with stool softeners and liquid diet. Pt's klonopin was decreased due to lethargy.Pt did not have a bowel movement for more than 24 hours of admission. Surgery, Dr. Zhou, was consulted for potentially worsening SBO. Repeat abdominal CT showed no evidence of sbo. Pt was given rectal enemas with movement of bowels. On discharge, pt is not complaining of pain. No tenderness on exam. No vomiting during hospital stay. Pt will be discharged with Keflex 500 mg PO Q12 for a total of 7 doses. She will also need home PT services. This is a summary of the hospital course, please see EMR for full details. Discharge Exam - Additional Findings Additional findings: - Constitutional Appears: Non-toxic, No Acute Distress - Head Exam Head Exam: ATRAUMATIC, NORMAL INSPECTION, NORMOCEPHALIC - Eye Exam Eye Exam: EOMI, Normal appearance - ENT Exam ENT Exam: Mucous Membranes Moist, Normal Exam. Poor dentition. - Neck Exam Neck exam: Positive for: Normal Inspection - Respiratory Exam Respiratory Exam: Clear to Auscultation Bilateral, NORMAL BREATHING PATTERN. absent: Respiratory Distress, rales, wheezes - Cardiovascular Exam Cardiovascular Exam: REGULAR RHYTHM. normal S1, more prominent s2. absent: Tachycardia - GI/Abdominal Exam GI & Abdominal Exam: Normal bowel sounds. Soft. absent: distension, Rigidity, Guarding, Tenderness - Extremities Exam Extremities exam: Positive for: normal inspection. No pedal edema. Negative for: calf tenderness - Neurological Exam Neurological exam: Alert - Psychiatric Exam Psychiatric exam: Normal mood - Skin Skin Exam: Dry, Intact, Normal Color, Warm Discharge Plan - Discharge Medications Prescriptions: Cephalexin [cephalexin] 500 mg PO BID 3 Days #7 cap - Follow Up Plan Condition: STABLE Disposition: HOME/ ROUTINE Additional Instructions: Pt is medically stable for discharge home as per Dr. Mo. Pt should continue to take previously prescribed medications, with the exception of: Klonopin 1 mg PO TID should be discontinued. Please take Klonopin 0.5 mg PO three times a day as needed. Please follow up with PMD for management of chronic medical problems, within 1 week. Pt should see her PMD for future management of Klonopin dosing as well. If symptoms worsen, please return to nearest emergency department for further evaluation. Instructions explained to the pt and son, who understand and agree with discharge plan.
[2018-05-02 16:35] VITALS: BP 133/80; PULSE 87; TEMP 98.2; O2SAT 97
== END 2018-05-02 17:40 | disposition home health service (06) | DRG 389 ==
LOC: C.ER 08:19 → C.3T 11:13 → C.9E 11:27 → C.3T 11:32
PROVIDERS: ADMIT Hospitalist; ATTEND Hospitalist
DX: K56.609 Unspecified intestinal obstruction, unspecified as to partial versus complete obstruction (principal); N39.0 Urinary tract infection, site not specified; I10 Essential (primary) hypertension; E03.9 Hypothyroidism, unspecified; G30.9 Alzheimer's disease, unspecified; F02.80 Dementia in other diseases classified elsewhere, unspecified severity, without behavioral disturbance, psychotic disturbance, mood disturbance, and anxiety; E78.00 Pure hypercholesterolemia, unspecified; E78.5 Hyperlipidemia, unspecified; B96.20 Unspecified Escherichia coli [E. coli] as the cause of diseases classified elsewhere